=== PATIENT | female | born 1960 | race Caucasian/White ===

== ENCOUNTER → 2017-01-10 | Day surgery (SDC) | payer BC ==
[2017-01-04 09:20] VITALS: BMI 23.0
--- NOTE | 2017-01-04 09:47 | PAT Medication Instructions ---
Service Date Jan 04, 2017. Current Home Medication List Carboxymethylcellulose Sodium (Refresh Tears), 1 DROP OPB PN Ferrous Sulfate (Slow Fe), 1 TAB PO 3XWEEK Ibuprofen (Motrin), 600 MG PO TID Lisinopril (Zestril), 5 MG PO QAM Loteprednol Etabonate (Lotemax), 1 DROPS OP TID PRN for RN Multivitamins/Minerals (Mvi With Minerals), 1 TAB PO QAM Triamcinolone Acet (Triamcinolone Acetonide), 1 APPLN TOP PRN Valacyclovir (Valtrex), 500 MG PO DIRECTED Medication Instructions For Your Scheduled Surgery - Hold the following medications PER SURGEONS INSTRUCTIONS: Ibuprofen (Motrin), 600 MG PO TID - Hold the following medications 24 hours prior to surgery: Triamcinolone Acet (Triamcinolone Acetonide), 1 APPLN TOP PRN - Hold the following medications the morning of surgery: Lisinopril (Zestril), 5 MG PO QAM Multivitamins/Minerals (Mvi With Minerals), 1 TAB PO QAM - Take the following medications the morning of surgery with a sip of water OTHERWISE NOTHING TO EAT OR DRINK AFTER MIDNIGHT: Carboxymethylcellulose Sodium (Refresh Tears), 1 DROP OPB Loteprednol Etabonate (Lotemax), 1 DROPS OP TID PRN Valacyclovir (Valtrex), 500 MG PO DIRECTED Tylenol (may take if needed up to 4 hours prior to surgery) - Take the following medications as scheduled the night before surgery: Carboxymethylcellulose Sodium (Refresh Tears), 1 DROP OPB Loteprednol Etabonate (Lotemax), 1 DROPS OP TID PRN Tylenol If you have any questions please call us at [phone] or [phone] or [phone]
--- NOTE | 2017-01-04 10:26 | DIAGNOSTIC IMAGING REPORT ---
TWO VIEW CHEST CLINICAL HISTORY: Preoperative examination. FINDINGS: PA and lateral chest radiographs are compared to study dated 07/17/2012. The cardiomediastinal silhouette is unremarkable. The lungs and pleural spaces are clear. There is no pneumothorax. The bony thorax appears intact. IMPRESSION: No active disease in the chest. Electronically signed by: Dewayne Marsh M.D. 01/04/2017 10:25 AM Dictated Date/Time: 01/04/2017 10:25 AM
[2017-01-04 11:13] LABS: BASO % 0.5 %; BASO ABS # 0.03 K/uL (0-0.2); COMPLETE YES; EOS % 2.4 %; IG% 0.2 %; LYMPH % 27.3 %; LYMPH ABS # 1.81 K/uL (1.2-3.4); MEAN CELL VOLUME 85.1 fL (80-100); MEAN CORPUSCULAR HEMOGLOBIN 28.6 pg (25-34); MEAN CORPUSCULAR HGB CONC 33.6 g/dl (32-36); MEAN PLATELET VOLUME 9.5 fL (7.4-10.4); MONO % 6.9 %; NEUT % 62.7 %; PLATELET COUNT 244 K/uL (130-400); RED BLOOD COUNT 4.23 M/uL (4.2-5.4); WHITE BLOOD COUNT 6.63 K/uL (4.8-10.8)
[2017-01-04 11:18] LABS: URINE APPEARANCE CLEAR (CLEAR); URINE BILIRUBIN NEG (NEG); URINE COLOR YELLOW; URINE EPITHELIAL CELL AUTO >30 /lpf (0-5); URINE NITRITE NEG (NEG); URINE SPECIFIC GRAVITY 1.019 (1.000-1.030); UROBILINOGEN NEG (NEG)
[2017-01-04 11:34] LABS: MANUAL MICROSCOPIC REQUIRED? NO; REVIEW REQ? YES
[~2017-01-10] VITALS: Ht 170.2 cm; Wt 65.4 kg
[~2017-01-10] MED LIST: ACET-1256 PO; ATROPINE SULFATE 0.1 MG/ML 5ML SYR IV PRN; CARB0.5D28 OPB; CIPR-255 PO; CIPROFLOXACIN / D5W 400 MG IV SCH; DEXAMETHASONE SOD INJ 4 MG/ML VIAL ONE; EpHEDrine SULFATE INJ 50 MG/ML AMP IV PRN; FENTANYL CITRATE INJ 50 MCG/1 ML 2 ML VIAL ONE; FERR142T PO; HYDROmorphone INJ 1 MG/ML SYR IV PRN; IBUP600T44 PO; LACTATED RINGER'S 1000ML 1,000 ML IV SCH; LIDOCAINE HCL 2% 2 ML VIAL (20MG/ML) ONE; LISI-729 PO; LTMOPS OP; MIDAZOLAM HCL 1 MG/ML 2ML VIAL ONE; MULT-513 PO; ONDANSETRON INJ 2 MG/ML 2 ML VIAL IV PRN; ONDANSETRON INJ 2 MG/ML 2 ML VIAL ONE; OXYC7.5T65 PO; OXYCODONE/ACETAMINOPHEN 7.5-325 TAB PO PRN; PHEN-775 PO; PROPOFOL IV EMULSION 10 MG/ML 20 ML VIAL IV ONE; TRMO115 TOP; VALA500T60 PO
[2017-01-10 07:47] VITALS: BP 127/70; PULSE 74; TEMP 37.3; O2SAT 97; Ht 170.2 cm; Wt 65.4 kg
--- NOTE | 2017-01-10 09:21 | History & Physical Bridge Note ---
H&P Re-Evaluation Bridge Note: I have examined the patient, reviewed the History & Physical and in the interval since the performance of the History & Physical I have noted the following changes of clinical significance: No changes noted
--- NOTE | 2017-01-10 10:40 | [facility] Operative Report ---
Operative Report Operative Date Jan 10, 2017. Pre-Operative Diagnosis Bladder Tumor Post-Operative Diagnosis Bladder Tumor Procedure(s) Performed Transuretheral Resection Bladder Tumor, Large Surgeon Dr. Pompa Cocoa Bean Roaster Surgeon(s) none Estimated Blood Loss 10cc Findings Multiple papillary appearing tumors throughout base and right lateral wall. Largest approx 3 cm in the base on right side. Total volume approx 6.3 cm. Fluids See Anes Report Specimens A: Tumor right trinome Drains None Anesthesia General Complication(s) None Disposition Recovery Room / PACU Indications Multifocal bladder tumors. risks and benefits discussed at length Description of Procedure Patient was consented and brought back to the operating room. Patient was placed under anesthesia in the supine position. Patient was prepped and draped in the regular sterile fashion. A time out was completed. A 30degree Cystoscope was placed into the bladder and the entire bladder was examined. The UO's were identified. Multifocal papillary tumors were discovered with many below 1 cm in size. Largest found at base of bladder on right approx 3 cm. Mild areas of bullous edema surrounding base tumor. The tumor was resected with the bipolar loop and the resection scope. It was sent for pathologic analysis. The multiple small tumors on the wall and base were also resected and the base fulgurated. With all visible tumor resected, the area was inspected. No bleeding was appreciated. Total tumor volume estimated at 6.3cm. The bladder was emptied. The scope was removed. The patient was cleaned, aroused from anesthesia, and transferred to the pacu in stable condition having tolerated the procedure well with no complications. I was present and participated in all aspects of the procedure. The patient will be monitored in the PACU until transferred. I attest to the content of the Intraoperative Record and any orders documented therein. Any exceptions are noted below.
--- NOTE | 2017-01-10 10:42 | Discharge Instructions ---
Discharge Instructions Date of Service Jan 10, 2017. Admission Reason for Admission: Bladder Tumor Discharge Discharge Diagnosis / Problem: Bladder tumor Discharge Goals Goal(s): Decrease discomfort, Improve function Activity Recommendations Activity Limitations: resume your previous activity Lifting Limitations: no more than 25 pounds, gradually increase as tolerated Exercise/Sports Limitations: as tolerated, gradually increase as tolerated Shower/Bathe: no limitations . Instructions / Follow-Up Instructions / Follow-Up May have blood in urine or pelvic discomfort. Call if any fevers or if unable to void. Current Hospital Diet Patient's current hospital diet: Reg Discharge Diet Recommended Diet: Regular Diet Procedures Procedures Performed: Transuretheral Resection Bladder Tumor, Large Pending Studies Studies pending at discharge: no Medical Emergencies . Who to Call and When: Medical Emergencies: If at any time you feel your situation is an emergency, please call 911 immediately. . Non-Emergent Contact Non-Emergency issues call your: Primary Care Provider, Urologist Call Non-Emergent contact if: temperature is above 101, temperature is above 101.5, your pain is not controlled, your pain is worsening . . "Provider Documentation" section prepared by Cade Pompa,. . VTE Core Measure Inpt VTE Proph given/why not?: Carlene Grider, SCD's
[2017-01-10] MEDS: FENTANYL CITRATE INJ 50 MCG/1 ML 2 ML VIAL IV PRN ×2 (11:12→11:16)
--- NOTE | 2017-01-10 11:34 | Anesthesiology Progress Note ---
Anesthesia Post Op Note Date & Time Jan 10, 2017 at 11:34 Vital Signs Pain Intensity: 3 Vital Signs Past 12 Hours Date Time Temp Pulse Resp B/P (MAP) Pulse Ox O2 Delivery O2 Flow Rate FiO2 01/10/17 11:30 82 22 132/78 98 Room Air 01/10/17 11:20 75 12 126/73 97 Room Air 01/10/17 11:10 86 20 132/103 98 Room Air 01/10/17 11:00 83 13 145/71 100 Oxymask 10 01/10/17 10:50 81 13 146/82 100 Oxymask 10 01/10/17 10:43 36.1 71 20 130/82 100 Oxymask 10 01/10/17 07:47 37.3 74 20 127/70 (89) 97 Room Air Notes Mental Status: alert / awake / arousable, participated in evaluation Pt Amnestic to Procedure: Yes Nausea / Vomiting: adequately controlled Pain: adequately controlled Airway Patency, RR, SpO2: stable & adequate BP & HR: stable & adequate Hydration State: stable & adequate Anesthetic Complications: no major complications apparent
[2017-01-10 11:40] VITALS: BP 136/73; PULSE 78; TEMP 36.3; O2SAT 98
[2017-01-10 12:10] VITALS: BP 127/74; PULSE 83; TEMP 36.3; O2SAT 98
[2017-01-10 12:40] VITALS: BP 131/88; PULSE 72; TEMP 36.7; O2SAT 100
== END | disposition home or self-care (01) ==
LOC: C.ACU 07:07
PROVIDERS: ATTEND Urology
DX: C67.2 Malignant neoplasm of lateral wall of bladder (principal); C67.9 Malignant neoplasm of bladder, unspecified; Z79.899 Other long term (current) drug therapy

== ENCOUNTER → 2017-03-26 | Outpatient (CLI) | payer OTHER ==
[~2017-03-26] MED LIST changes: -ACET-1256 PO; -ATROPINE SULFATE 0.1 MG/ML 5ML SYR IV PRN; -CIPROFLOXACIN / D5W 400 MG IV SCH; -DEXAMETHASONE SOD INJ 4 MG/ML VIAL ONE; -EpHEDrine SULFATE INJ 50 MG/ML AMP IV PRN; -FENTANYL CITRATE INJ 50 MCG/1 ML 2 ML VIAL ONE; +GADOXETATE DISODIUM (NON-WT BASED PROCEDURE) IV PRN; -HYDROmorphone INJ 1 MG/ML SYR IV PRN; -IBUP600T44 PO; -LACTATED RINGER'S 1000ML 1,000 ML IV SCH; -LIDOCAINE HCL 2% 2 ML VIAL (20MG/ML) ONE; -MIDAZOLAM HCL 1 MG/ML 2ML VIAL ONE; -ONDANSETRON INJ 2 MG/ML 2 ML VIAL IV PRN; -ONDANSETRON INJ 2 MG/ML 2 ML VIAL ONE; -OXYCODONE/ACETAMINOPHEN 7.5-325 TAB PO PRN; -PHEN-775 PO; -PROPOFOL IV EMULSION 10 MG/ML 20 ML VIAL IV ONE
--- NOTE | 2017-03-26 16:25 | DIAGNOSTIC IMAGING REPORT ---
MRI LIVER COMBO CLINICAL HISTORY: LIVER MASS , RENAL MASS., Bladder carcinoma. TECHNIQUE: Imaging was performed prior to and following IV contrast injection. The patient was injected with 10 cc of intravenous Eovist COMPARISON STUDY: CT scan dated February 2009 FINDINGS: There is cholelithiasis. There is no ductal dilatation. No pancreatic masses are visualized. No splenic masses are visualized. There is no evidence of abdominal aortic dilatation. There is no evidence of pathologic adenopathy. There is a 14 mm right renal cyst. There is an 11 mm T2 bright mass within the right hepatic lobe immediately beneath the dome the diaphragm. This demonstrates peripheral nodular enhancement with slow filling. This likely represents a hepatic hemangioma. There is a second 4 mm T2 bright lesion within the right hepatic lobe. This is too small to actually characterize but likely represents a second hepatic hemangioma. Both of these lesions were visualized the prior February 2009 CT scan. No adrenal masses are visualized. IMPRESSION: 1. 14 mm right renal cyst. No solid renal masses are visualized 2. There are 2 hepatic masses. These were both present in 2009. These likely represent benign hepatic hemangiomas. 3. Cholelithiasis Electronically signed by: Tad Vila M.D. 03/26/2017 4:23 PM Dictated Date/Time: 03/26/2017 4:12 PM
== END | disposition home or self-care (01) ==
LOC: C.MRI 14:31
PROVIDERS: ATTEND Internal Medicine Gastroenterology
DX: R16.0 Hepatomegaly, not elsewhere classified (principal); N28.1 Cyst of kidney, acquired; K80.20 Calculus of gallbladder without cholecystitis without obstruction

== ENCOUNTER 2023-08-17 03:23 | Inpatient (IN) ==
--- OUTSIDE RECORDS SUMMARY | 2023-08-17 03:42 | External Medical Summary | Summary of Care ---
Author Name Unknown Organization [facility] Address [address] [facility] [place] [address] Phone [phone] Care Team Providers Care Sewer Connector Name Role Phone Danny Crystal MD Primary Care Provider + Encounter Details Date Type Department Care Team (Late st Contact Info) Description 08/15/2023 Patient Reported Data Patient Survey Ortho OBERD Allergies Active Allergy Reactions Criticality Noted Date Comments Pollen 11/29/2014 documented as of this encounter (statuses as of 08/15/2023) Medications Medication Sig Dispensed Refills Start Date End Date Status DAILY VITAMINS PO TABS daily 0 0 03/02/2005 Active REFRESH OPTIVE 0.5-0.9 % OP SOLN daily as needed Ac tive Slow Fe 142 (45 Fe) MG Oral Tablet Extended Release 3 days a week M,W,F Active Terbinafine HCl 1 % External Cream Apply topically to affected area 2 times a day. Apply to affected area as directed. Active Ketotifen Fumarate 0.025 % Ophthalmic Solution 1 Drop in the morning and 1 Drop before bedtime. Uses Equate brand eye drops as needed . Active diphenhydrAMINE HCl 25 MG Oral Capsule Take 1 Capsule by mouth every 6 hours as needed for Itching. Active Loteprednol Etabonate 0.5 % Ophthalmic Suspension (Lotemax) NEEDED 10/05/2020 Acti ve Fluticasone Propionate 50 MCG/ACT Nasal SuspensionIndication s:as needed Administer 2 Sprays into each nostril as needed for Rhinitis. 18.2 mL 08/09/2021 Active Triamcinolone Acetonide 0.1 % External Ointment (Aristocort)Indicati ons:Dermatitis Apply topically to affected area as needed (facial inflammation). Apply to affected Area twice a day as needed 15 g 2 01/10/2023 Active valACYclovir HCl 500 MG Oral Tablet (Valtrex)Indications :Herpes simplex virus infection take 1 tablet by mouth three times a day for 5 days if needed 30 Tablet 5 05/02/2023 Active Ibuprofen 600 MG Oral Tablet (Motrin)Indications: Systemic lupus erythematosus (HCC) TAKE ONE TABLET BY MOUTH THREE TIMES A DAY NEEDED FOR PAIN 270 Tablet 1 05/11/2023 05/10/2024 Active Lisinopril 20 MG Oral Tablet (Prinivil)Indication s:HTN, goal below 140/90 Take 1 Tablet by mouth in the morning. 90 Tablet 3 05/17/2023 Active documented as of this encounter (statuses as of 08/15/2023) Active Problems Problem Noted Date Diagnosed Date 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 Senile osteoporosis 04/19/2022 Mild mitral regurgitation 12/18/2020 Diastolic dysfunction 12/18/2020 Melanoma in situ of upper extremity, left 2020 Lupus 11/11/2019 History of gallstones 11/11/2019 Overview: No symptoms Basal cell carcinoma (BCC) of left ala nasi 02/2017 Renal cyst, right 04/01/2017 History of esophageal stricture 09/06/2016 History of melanoma in situ 12/11/2012 Overview: left forearm 08/2009 HTN, goal below 140/90 10/09/2012 History of malignant melanoma 12/13/2009 Dermatofibroma 11/29/2000 documented as of this encounter (statuses as of 08/15/2023) Resolved Problems Problem Noted Date Diagnosed Date Resolved Date High risk for fracture due t o osteoporosis by DEXA scan 04/18/2022 04/18/2022 Malignant neoplasm of trigon e of urinary bladder 11/14/2020 08/13/2022 Systolic murmur 09/15/2018 08/13/2022 Visit for wound check 05/21/20182018 Postop check 02/19/2018 09/15/2018 Liver hemangioma 04/01/2017 08/13/2022 Calculus of gallbladder with out cholecystitis without obstruction 04/01/2017 09/15/2018 Malignant neoplasm of latera l wall of urinary bladder 04/01/2017 11/14/2020 Dysphagia 01/06/2014 09/12/2017 Overview: ICD-10 update of inactive term Conjunctivitis 09/09/2012 09/15/2018 HTN (hypertension) 07/31/2012 3 Acute bronchitis, complicated 05/05/2010 12/19/2016 ADVANCE DIRECTIVE INFORMATION 01/29/2006 04/01/2017 Overview: No, Advance Directive brochure offered , patient declined. SYST LUPUS ERYTHEMATOSIS suspect 03/04/2005 08/31/2009 Edema 08/03/2004 09/15/2018 Calculus of gallbladder 12/28/2001 0206/2017 Sebaceous cyst 11/29/2000 08/15/2023 AT RISK FOR OSTEOPOROSIS 09/14/200006/2017 SYST LUPUS ERYTHEMATOSIS Herpes simplex virus infection 09/15/2018 Encounter for long-term (cur rent) use of medications 04/01/2017 Overview: ICD-10 update of inactive term documented as of this encounter (statuses as of 08/15/2023) Immunizations Name Administration Dates Next Due COVID-19 mRNA, LNP-s, No Pre serve, 2-Dose Series (Moderna) 06/06/2021,04/22/2020,03/25/2020 COVID-19, mRNA, LNP-s, PF, B ooster, 100mcg/0.5mg (Moderna) 11/19/2021,06/05/2021,12/26/2020 Covid-19, Mrna, Lnp-s, Pf, B ivalent, 50 Mcg, IM, 12 yrs and above (Moderna) 12/18/2022,08/13/2022 PPD 07/17/2010,06/03/2007 Seasonal Influenza Virus Vac cine, Unspecified Formulation 11/09/2022,11/11/2019 Seasonal Influenza, PF, 6 M & above, IM , (FluLaval or Fluzone) 11/09/2022,11/02/2021,11/14/2020,11/10,11/03/2018,12/17/2017,12/18/2016 Seasonal Influenza, Quadriva lent, No Preserve, IM 12/13/2015,11/29/2014 Seasonal Influenza, Split, I IV3, With Preserve, Inj 11/19/2013,12/01/2012,11/10/2011,12/28,12/13/2009,11/17/2008,12/12/2007 ,01/13/2007,01/08/2006 TD - Tetanus/Diptheria (ADULT) 05/16/2004 TDAP (age 10 and older)(Boostrix) 08/13/2022,07/2012 Zoster Vaccine Recombinant (Shingrix) 12/16/2018,09/15/2018 11/16/2018 documented as of this encounter Social History Tobacco Use Types Packs/Day Years Used Date Smoking Tobacco: Never Smokeless Tobacco: Never Alcohol Use Standard Drinks/Week Comments No 0 (1 standard drink = 0.6 oz pur e alcohol) PHQ-2 Answer Date Recorded PHQ Adult Total Score 2 08/13/2022 Hunger Vital Sign Answer Date Recorded Within the past 12 months, y ou worried that your food would run out before you got the money to buy more. Never true 08/14/19 23 Within the past 12 months, t he food you bought just didn't last and you didn't have money to get more. Never true 08/13/2022 Utilities Answer Date Recorded Do you have trouble paying y our heating, water, or electric bill? (Adult - for ages 18 years and over) Not on file 08/13/2023 Is your family able to pay t he heat, water, or electric bill? (Household - for ages 0-17 years) Not on file 08/13/2023 Does your family have access to good internet? (Household - for ages 0-17 years) Not on file 08/13/2023 Social Connections Answer Date Recorded How often do you feel lonely or isolated from those around you? (Adult - for ages 18 years and over) Not on file 08/13/2023 Sex and Gender Information Value Date Recorded Sex Assigned at Female 09/15/2018 8:04 AM EDT Gender Identity Female 09/15/2018 8:04 AM EDT Sexual Orientation Straight 09/15/2018 8: 04 AM EDT Job Start Date Occupation Industry Not on file Not on file Not on file documented as of this encounter Plan of Treatment Upcoming Encounters Date Type Department Care Team (Late st Contact Info) Description 08/16/2023 12:45 PM EDT Imaging Radiology [facility] [address] [facility] [place] [address] 08/21/2023 11:30 AM EDT Office Visit Orthopaedics [facility] [address] [facility] [address] [facility] [place] [address] Millie Stout MD [address] [facility] [place] [address] 09/09/2023 3:30 PM EDT Procedure Only Urology, [facility] [address] [facility] [place] [address] Pepito Malhotra MD [address] [place] [address] 01/09/2024 1:00 PM EST Office Visit Dermatology [facility] [address] [place] [address] Shilpi Dobbs PA-C [address] [facility] [place] [phone] 04/15/2024 11:00 AM EST Office Visit Rheumatology [place] [phone] [facility] [place] [address] Porter Sanchez MD [facility] [place] [address] 07/14/2024 1:00 PM EDT Office Visit General Internal Medicine [facility] [address] [place] [address] Danny Crystal MD [address] [facility] [place] [address] 07/17/2024 8:30 AM EDT Imaging Radiology [facility] [address] [facility] [place] [address] [place] [address] Scheduled Procedures Name Priority Associated Diagnoses Date/Ti me COLONOSCOPY FLEXIBLE PROXIMA L DIAGNOSTIC Recall History of colon polyps Screen for colon cancer Health Maintenance Due Date Last Done Comments Cologuard 2005 Sigmoidoscopy 2005 Fecal Occult Blood Test 02/17/2015 02/17/2014 COVID-19 Vaccine ( season) 2023 12/18/2022, 08/13/2022, 11/19/2021, Additional history exists Depression Screening 08/14/2023 08/13/2022 DXA Scan 04/17/2024 04/17/2022, 03/29, 01/25/2020, Additional history exists Mammogram 07/15/2024 07/16/2023, 06/25, 07/06/2022, Additional history exists GFR 08/14/2024 08/15/2023, 03/28, 08/13/2022, Additional history exists Albumin/Creatinine Ratio 08/15/2025 08/15/2022 Colonoscopy 05/18/2027 05/17/2022, 04/26, 03/25/2017, Additional history exists Colorectal Cancer Screening 05/18/2027 Lipid Panel 08/14/2027 08/13/2022, 07/26, 11/14/2020, Additional history exists DTaP,Tdap,and Td Vaccines (3 - Td or Tdap) 08/13/2032 08/13/2022, 07/31/2012, 05/16/2004, Additional history exists Zoster Vaccines Completed 12/16/2018, 09/15/2018 RETIRED - COLONOSCOPY-EVERY 5 YRS AGES 18-100 Discontinued 05/17/2022, 05/17/2022, 03/25/2017, Additional history exists Influenza Vaccine (FLU shot) Completed 11/09/2022, 11/09/2022, 11/02/2021, Additional history exists VITAMIN D LEVEL ONCE IN A LIFETIME-USE SMARTSET# [id number] Completed 04/11/2023, 04/18/2022, 01/18/2020, Additional history exists GARDASIL-HPV IMMUNIZATION SERIES Aged Out No longer eligible based on patient's age to complete this topic Hepatitis B Aged Out No longer eligi ble based on patient's age to complete this topic MENINGOCOCCAL (MENACTRA/MENVEO) Aged Out No longer eligible based on patient's age to complete this topic Pneumococcal Vaccine: Pediatrics (0 to 5 Years) and At-Risk Patients (6 to 64 Years) Aged Out No longer eligible based on patient's age to complete this topic documented as of this encounter Medical Devices Not on filedocumented as of this encounter Advance Directives * Full Code (Latest Code Status on File) Date Activated Date Inactivated Comments 07/12/2017 8:19 AM 07/12/2017 3:32 PM This order r eflects the patients wishes and were consensually agreed upon. Care Teams Sewer Connector Relationship Specialty Start Date End Date Danny Crystal MD [address] [facility] [place] [address] PCP - General Internal Medicine 04/01/17 documented as of this encounter
--- OUTSIDE RECORDS SUMMARY | 2023-08-17 03:42 | External Medical Summary | Summary of Care ---
Author Name Unknown Organization [facility] Address [address] [facility] [place] [address] Phone [phone] Care Team Providers Care Painter Touch Up Name Role Phone Danny Crystal MD Primary [...] Description 08/16/2023 12:45 PM EDT Imaging Radiology [facility] [address] [facility] [place] [address] 08/21/2023 11:30 AM EDT Office Visit Orthopaedics [facility] [address] [facility] [place] [address] Millie Stout MD [address] [facility] [place] [address] 09/09/2023 3:30 PM EDT Procedure Only Urology, [facility] [address] [facility] [place] [address] Pepito Malhotra MD [address] [place] [address] 01/09/2024 1:00 PM EST Office Visit Dermatology [facility] [address] [place] [address] Shilpi Dobbs PA-C [address] [facility] [place] [phone] 04/15/2024 11:00 AM EST Office Visit Rheumatology [place] [address] [facility] [place] [address] Porter Sanchez MD [facility] [place] [address] 07/14/2024 1:00 PM EDT Office Visit General Internal Medicine [facility] [address] [place] [address] Danny Crystal MD [address] [facility] [address] 07/17/2024 8:30 AM EDT Imaging Radiology [facility] [address]st [facility] [place] [address] [place] [address] Scheduled Procedures Name Priority Associated Diagnoses Date/Ti [...] D LEVEL ONCE IN A LIFETIME-USE SMARTSET# [id number] Completed 04/11/2023, 04/18/2022, 01/18/2020, Additional history exists [...] and were consensually agreed upon. Care Teams Painter Touch Up Relationship Specialty Start Date End Date Danny Crystal MD [address] [facility] [address] PCP - General Internal Medicine 04/01/17 documented as of this encounter
--- OUTSIDE RECORDS SUMMARY | 2023-08-17 03:42 | External Medical Summary | Summary of Care ---
Author Name Unknown Organization [facility] Address [address] [facility] [place] [address] Phone [phone] Care Team Providers Care Air Deodorizer Servicer Name Role Phone Danny Crystal MD Primary [...] Description 08/16/2023 12:45 PM EDT Imaging Radiology [facility] [address] [facility] [place] [address] 08/21/2023 11:30 AM EDT Office Visit Orthopaedics [facility] [address] [facility] [place] [address] Millie Stout MD [address] [facility] [place] [address] 09/09/2023 3:30 PM EDT Procedure Only Urology, [facility] [address] [facility] [place] [address] Pepito Malhotra MD [address] [place] [address] 01/09/2024 1:00 PM EST Office Visit Dermatology [facility] [address] [place] [address] Shilpi Dobbs PA-C [address] [facility] [place] [phone] 04/15/2024 11:00 AM EST Office Visit Rheumatology [place] [address] [facility] [place] [address] Porter Sanchez MD [facility] [place] [address] 07/14/2024 1:00 PM EDT Office Visit General Internal Medicine [facility] [address] [place] [address] Danny Crystal MD [address] [facility] [place] [address] 07/17/2024 8:30 AM EDT Imaging Radiology [facility] 1st [facility] [place] [address] [place] [address] Scheduled Procedures Name Priority Associated Diagnoses Date/Ti [...] D LEVEL ONCE IN A LIFETIME-USE SMARTSET# [id number] Completed 04/11/2023, 04/18/2022, 01/18/2020, Additional history exists [...] and were consensually agreed upon. Care Teams Air Deodorizer Servicer Relationship Specialty Start Date End Date Danny Crystal MD [address] [facility] [place] [address] PCP - General Internal Medicine 04/01/17 documented as of this encounter
--- OUTSIDE RECORDS SUMMARY | 2023-08-17 03:42 | External Medical Summary | Summary of Care ---
Author Name Unknown Organization [facility] Address [address] [facility] [place] [address] Phone [phone] Care Team Providers Care Cable Engineer Name Role Phone Danny Crystal MD Primary [...] Description 08/16/2023 12:45 PM EDT Imaging Radiology [facility] [address] [facility] [place] [address] 08/21/2023 11:30 AM EDT Office Visit Orthopaedics [facility] [address] [facility] [place] [address] Millie Stout MD [address] [facility] [place] [address] 09/09/2023 3:30 PM EDT Procedure Only Urology, [facility] 132 [facility] [place] [address] Pepito Malhotra MD [address] [address] [place] [address] 01/09/2024 1:00 PM EST Office Visit Dermatology [facility] [address] [place] [address] Shilpi Dobbs PA-C 200 [facility] [place] [address] 04/15/2024 11:00 AM EST Office Visit Rheumatology [place] 8[address]40 [facility] [place] [address] Porter Sanchez MD [facility] [place] [address] 07/14/2024 1:00 PM EDT Office Visit General Internal Medicine [facility] [address] [place] [address] Danny Crystal MD 200 [facility] [place] [address] 07/17/2024 8:30 AM EDT Imaging Radiology [facility] 1st [facility] [place] [address] [place] [address] Scheduled Procedures Name Priority Associated Diagnoses Date/Ti [...] D LEVEL ONCE IN A LIFETIME-USE SMARTSET# [id number] Completed 04/11/2023, 04/18/2022, 01/18/2020, Additional history exists [...] and were consensually agreed upon. Care Teams Cable Engineer Relationship Specialty Start Date End Date Danny Crystal MD 200 [facility] [address] PCP - General Internal Medicine 04/01/17 documented as of this encounter
--- OUTSIDE RECORDS SUMMARY | 2023-08-17 03:43 | External Medical Summary ---
Author Name Unknown Address Unknown Organization [id number][place] [place] [address] [place] [address] Laboratory Report Ordering Provider Test Date Status XANDER MCCORMICK 08/15/2023 09:28:35 Final Observation Date Value Abnormality Reference (Units ) Status Iron 08/15/2023 09:28:35 32 Below low normal 33-151 (ug/dL) Final Iron-binding capacity 08/15/2023 09:28:35 290 250-425 (ug/dL) Final Transferrin Sat % 08/15/2023 09:28:35 11 Below low normal 15-55 (%) Final Performing Location [facility] [place] [address] [place] [address]
--- OUTSIDE RECORDS SUMMARY | 2023-08-17 03:43 | External Medical Summary | Summary of Care ---
Author Name Unknown Organization [facility] Address [address] [facility] [place] [address] Phone [phone] Care Team Providers Care Varnish Thinner Name Role Phone Danny Crystal MD Primary [...] Description 08/16/2023 12:45 PM EDT Imaging Radiology [facility] 132 [facility] [place] [address] 08/21/2023 11:30 AM EDT Office Visit Orthopaedics [facility] 132 [facility] [place] [address] Millie Stout MD 132 [facility] [place] [address] 09/09/2023 3:30 PM EDT Procedure Only Urology, [facility] 132 [facility] [place] [address] Pepito Malhotra MD [address] [place] [address] [place] [address] 01/09/2024 1:00 PM EST Office Visit Dermatology [facility] [address] [place] [address] Shilpi Dobbs PA-C 200 [facility] [place] [phone] 04/15/2024 11:00 AM EST Office Visit Rheumatology [place] [address]1130 [facility] [place] [address] Porter Sanchez MD [facility] [place] [address] 07/14/2024 1:00 PM EDT Office Visit General Internal Medicine [facility] [address] [place] [address] Danny Crystal MD 200 [place] [address] 07/17/2024 8:30 AM EDT Imaging Radiology [facility] 1st [facility] [place] [address] [place] [address] Scheduled Procedures Name Priority Associated Diagnoses Date/Ti [...] D LEVEL ONCE IN A LIFETIME-USE SMARTSET# [id number] Completed 04/11/2023, 04/18/2022, 01/18/2020, Additional history exists [...] and were consensually agreed upon. Care Teams Varnish Thinner Relationship Specialty Start Date End Date Danny Crystal MD 200 [place] [address] PCP - General Internal Medicine 04/01/17 documented as of this encounter
--- OUTSIDE RECORDS SUMMARY | 2023-08-17 03:43 | External Medical Summary | Summary of Care ---
Author Name Unknown Organization [facility] Address [address] [facility] [place] [address] Phone [phone] Care Team Providers Care Compensation Consulting Manager Name Role Phone Danny Terrell MD Primary Care Provider + Reason for Visit * Reason Comments Medication Refill Encounter Details Date Type Department Care Team (Late st Contact Info) Description 05/11/2023 Refill General Internal Medicine [facility] [place] [address] [place] [address] Irasema Diego MD 200 [facility] [place] [address] SYST LUPUS ERYTHEMATOSIS Allergies Active Allergy Reactions Criticality Noted Date Comments Pollen 11/29/2014 documented as of this encounter (statuses as of 05/11/2023) Medications Medication Sig Dispensed Refills Start Date End Date Status DAILY VITAMINS PO TABS daily 0 0 03/02/2005 Active REFRESH OPTIVE 0.5-0.9 % OP SOLN daily as needed 0 Ac tive Slow Fe 142 (45 Fe) MG Oral Tablet Extended Release 3 days a week M,W,F 0 Active Terbinafine HCl 1 % External Cream Apply topically to affected area 2 times a day. Apply to affected area as directed. 0 Active Ketotifen Fumarate 0.025 % Ophthalmic Solution 1 Drop in the morning and 1 Drop before bedtime. Uses Equate brand eye drops as needed . 0 Active diphenhydrAMINE HCl 25 MG Oral Capsule Take 1 Capsule by mouth every 6 hours as needed for Itching. 0 Active Loteprednol Etabonate 0.5 % Ophthalmic Suspension (Lotemax) NEEDED 0 10/05/2020 Active Fluticasone Propionate 50 MCG/ACT Nasal SuspensionIndicatio ns:as needed Administer 2 Sprays into each nostril as needed for Rhinitis. 18.2 mL 0 08/09/2021 Active Triamcinolone Acetonide 0.1 % External Ointment (Aristocort)Indicat ions:Dermatitis Apply topically to affected area as needed (facial inflammation). Apply to affected Area twice a day as needed 15 g 2 01/10/2023 Active Lisinopril 20 MG Oral Tablet (Prinivil)Indicatio ns:HTN, goal below 140/90 TAKE ONE TABLET BY MOUTH EVERY MORNING 90 Tablet 1 02/11/2023 Active methylPREDNISolone 4 MG Oral Tablet Therapy Pack (Medrol Dosepack) follow package directions 21 Tablet 1 04/11/2023 Active valACYclovir HCl 500 MG Oral Tablet (Valtrex)Indication s:Herpes simplex virus infection take 1 tablet by mouth three times a day for 5 days if needed 30 Tablet 5 05/02/2023 Active Ibuprofen 600 MG Oral Tablet (Motrin)Indications :Systemic lupus erythematosus (HCC) TAKE ONE TABLET BY MOUTH THREE TIMES A DAY NEEDED FOR PAIN 270 Tablet 1 05/11/2023 5 Active Ibuprofen 600 MG Oral Tablet (Motrin)Indications :Systemic lupus erythematosus (HCC) TAKE ONE TABLET BY MOUTH THREE TIMES A DAY NEEDED FOR PAIN 270 Tablet 1 10/01/2022 4 Discontinue d(Refill) documented as of this encounter (statuses as of 05/11/2023) Active Problems Problem Noted Date Diagnosed Date 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 Senile osteoporosis 04/19/2022 Mild mitral regurgitation 12/18/2020 Diastolic dysfunction 12/18/2020 Melanoma in situ of upper extremity, left 2020 Lupus 11/11/2019 History of gallstones 11/11/2019 Overview: No symptoms Basal cell carcinoma (BCC) of left ala nasi 11/0 02/2017 Renal cyst, right 04/01/2017 History of esophageal stricture 09/06/2016 History of melanoma in situ 12/11/2012 Overview: left forearm 08/2009 HTN, goal below 140/90 10/09/2012 History of malignant melanoma 12/13/2009 Sebaceous cyst 11/29/2000 Dermatofibroma 11/29/2000 documented as of this encounter (statuses as of 05/11/2023) Resolved Problems Problem Noted Date Diagnosed Date [...] Edema 08/03/2004 09/15/2018 Calculus of gallbladder 12/28/2001 02/06/2017 AT RISK FOR OSTEOPOROSIS 09/14/200006/2017 SYST LUPUS ERYTHEMATOSIS Herpes simplex virus infection 09/15/2018 Encounter for long-term (cur rent) use of medications 04/01/2017 Overview: ICD-10 update of inactive term documented as of this encounter (statuses as of 05/11/2023) Immunizations Name Administration Dates Next Due COVID-19 [...] money to get more. Never true 08/13/2022 Sex and Gender Information Value Date Recorded Sex Assigned at Female 09/15/2018 8:04 AM EDT Gender Identity Female 09/15/2018 8:04 AM EDT Sexual Orientation Straight 09/15/2018 8: 04 AM EDT Job Start Date Occupation Industry Not on file Not on file Not on file documented as of this encounter Miscellaneous Notes * Telephone Encounter - Steve Odell [facility] - 05/11/2023 12:59 PM EDTSigned Prescriptions: Disp Refills Ibuprofen 600 MG Oral Tablet (Motrin) 270 Ta*1 Sig: TAKE ONE TABLET BY MOUTH THREE TIMES A DAY NEEDED FOR PAINAuthorizing Provider: DANNY TERRELLUser: STEVE ODELL documented in this encounter Plan of Treatment Upcoming Encounters Date Type Department Care Team (Late st Contact Info) Description 06/20/2023 9:30 AM EDT Office Visit Dermatology [facility] [address] [place] [address] Giuliana Bedolla MD [address] [place] [address] 07/08/2023 9:45 AM EDT Imaging Radiology [facility] [address]st [address] [place] [address] 08/15/2023 9:00 AM EDT Office Visit General Internal Medicine [facility] [address] [place] [address] Danny Terrell MD 200 [facility] [place] [address] 09/09/2023 3:30 PM EDT Procedure Only Urology, [facility] 132 [facility] [place] [address] Pepito Malhotra MD [address] [address] [place] [address] 04/15/2024 11:00 AM EST Office Visit Rheumatology [place] [address] [address] Porter Sanchez MD [address] [place] [address] Scheduled Procedures Name Priority Associated Diagnoses Date/Ti me COLONOSCOPY FLEXIBLE PROXIMA L DIAGNOSTIC Recall History of colon polyps Screen for colon cancer Health Maintenance Due Date Last Done Comments COVID-19 Vaccine (2022- season) 2023 12/18/2022, 08/13/2022, 11/19/2021, Additional history exists Mammogram 07/07/2023 07/06/2022, 06/25, 11/28/2020, Additional history exists Depression Screening 08/14/2023 08/13/2022 GFR 04/11/2024 04/11/2023, 07/26, 04/18/2022, Additional history exists DXA Scan 04/17/2024 04/17/2022, 03/29, 01/25/2020, Additional history exists Albumin/Creatinine Ratio 08/15/2025 08/15/2022 COLONOSCOPY-EVERY 5 YRS AGES 18-100 05/18/2027 05/17/2022, 05/17/2022, 03/25/2017, Additional history exists Lipid Panel 08/14/2027 08/13/2022, 07/26, 11/14/2020, Additional history exists DTaP,Tdap,and Td Vaccines (3 - Td or Tdap) 08/13/2032 08/13/2022, 07/31/2012, 05/16/2004, Additional history exists Zoster Vaccines Completed 12/16/2018, 09/15/2018 Influenza Vaccine (FLU shot) Completed , 11/09/2022, 11/02/2021, Additional history exists VITAMIN D LEVEL ONCE IN A LIFETIME-USE SMARTSET# [id number] Completed 04/11/2023, 04/18/2022, 01/18/2020, Additional history exists [...] Not on filedocumented as of this encounter Visit Diagnoses Diagnosis SYST LUPUS ERYTHEMATOSIS Systemic lupus erythematosus documented in this encounter Advance Directives Latest Code Status on File Code Status Date Activated Date Inactivated Comments Full Code 07/12/2017 8:19 AM 07/12/2017 3:32 PM This order reflects the patients wishes and were consensually agreed upon. Care Teams Compensation Consulting Manager Relationship Specialty Start Date End Date Danny Terrell MD 200 [place] [address] PCP - General Internal Medicine 04/01/17 documented as of this encounter
--- OUTSIDE RECORDS SUMMARY | 2023-08-17 03:43 | External Medical Summary ---
Author Name Unknown Address Unknown Organization K09:[facility] [place] [address] Laboratory Report Ordering Provider Test Date Status XANDER MCCORMICK 08/15/2023 09:28:35 Final Observation Date Value Abnormality Reference (Units ) Status WBC, Total 08/15/2023 09:28:35 10.50 4.00-10.8 0 (K/uL) Final RBC 08/15/2023 09:28:35 4.15 3.85-5.15 (M/uL) Final Hemoglobin 08/15/2023 09:28:35 12.1 12.0-15.3 (g/dL) Final HCT 08/15/2023 09:28:35 35.9 Below low normal 36. 0-45.2 (%) Final MCV 08/15/2023 09:28:35 86.5 81.5-97.5 (fL) Final MCH 08/15/2023 09:28:35 29.2 27.0-34.0 (pg) Final MCHC 08/15/2023 09:28:35 33.7 32.0-36.0 (g/dL) Final RDW 08/15/2023 09:28:35 13.1 11.5-15.5 (%) Final Platelets 08/15/2023 09:28:35 256 140-400 (K /uL) Final MPV 08/15/2023 09:28:35 9.0 6.6-11.1 ( fL) Final Performing Location [facility] [place] [address]
--- OUTSIDE RECORDS SUMMARY | 2023-08-17 03:43 | External Medical Summary | Summary of Care ---
Author Name Unknown Organization [facility] Address [address] [facility] [place] [address] Phone [phone] Care Team Providers Care International Trade Compliance Manager Name Role Phone Danny Crystal MD Primary Care Provider + Reason for Visit * Reason Comments Lesion Pt presents today fo r a spot on R foot. Pt noticed this the day before yesterday (05/21/23) Pt denies any pain or itchiness at this spot at this time Encounter Details Date Type Department Care Team (Late st Contact Info) Description 05/23/2023 8:45 AM EDT Office Visit Dermatology [facility] [place] 200 [facility] [place] [address] Giuliana Bedolla MD 200 [facility] [place] [address] Skin lesion* Allergies Active Allergy Reactions Criticality Noted Date Comments Pollen 11/29/2014 documented as of this encounter (statuses as of 05/26/2023) Medications Medication Sig Dispensed Refills Start Date [...] % Ophthalmic Suspension (Lotemax) NEEDED 0 10/05/2020 Acti ve Fluticasone Propionate 50 MCG/ACT Nasal SuspensionIndication s:as needed Administer 2 Sprays into each nostril as needed for Rhinitis. 18.2 mL 0 08/09/2021 Active Triamcinolone Acetonide 0.1 % External Ointment (Aristocort)Indicati ons:Dermatitis Apply topically to affected area as needed (facial inflammation). Apply to affected Area twice a day as needed 15 g 2 01/10/2023 Active methylPREDNISolone 4 MG Oral Tablet Therapy [...] as of this encounter (statuses as of 05/26/2023) Active Problems Problem Noted Date Diagnosed Date [...] as of this encounter (statuses as of 05/26/2023) Resolved Problems Problem Noted Date Diagnosed Date [...] 08/31/2009 Edema 08/03/2004 09/15/2018 Calculus of gallbladder 12/28/200106/2017 AT RISK FOR OSTEOPOROSIS 09/14/200006/2017 SYST LUPUS ERYTHEMATOSIS Herpes simplex virus infection 09/15/2018 Encounter for long-term (cur rent) use of medications 04/01/2017 Overview: ICD-10 update of inactive term documented as of this encounter (statuses as of 05/26/2023) Immunizations Name Administration Dates Next Due COVID-19 [...] on file documented as of this encounter Progress Notes * Giuliana Bedolla MD - 05/23/2023 8:56 AM EDT SUBJECTIVE: History of Present Illness: Deangelo Burgos is a 62 year old female seen today for evaluation of a mole that she recently noticed on her right dorsal foot. She is worried about its appearance and requests a biopsy. MEDICA TIONS: Current Outpatient Medications Medication Sig Dispense Refill DAILY VITAMINS PO TABS daily 0 0 REFRESH OPTIVE 0.5-0.9 % OP SOLN daily as needed Slow Fe 142 (45 Fe) MG Oral Tablet Extended Release 3 days a week M,W,F Terbinafine HCl 1 % External Cream Apply topically to affected area 2 times a day. Apply to affected area as directed. Ketotifen Fumarate 0.025 % Ophthalmic Solution 1 Drop in the morning and 1 Drop before bedtime. Uses Equate brand eye drops as needed . diphenhydrAMINE HCl 25 MG Oral Capsule Take 1 Capsule by mouth every 6 hours as needed for Itching. Loteprednol Etabonate 0.5 % Ophthalmic Suspension (Lotemax) NEEDED Fluticasone Propionate 50 MCG/ACT Nasal Suspension Administer 2 Sprays into each nostril as needed for Rhinitis. 18.2 mL 0 Triamcinolone Acetonide 0.1 % External Ointment (Aristocort) Apply topically to affected area as needed (facial inflammation). Apply to affected Area twice a day as needed 15 g 2 methylPREDNISolone 4 MG Oral Tablet Therapy Pack (Medrol Dosepack) follow package directions 21 Tablet 1 valACYclovir HCl 500 MG Oral Tablet (Valtrex) take 1 tablet by mouth three times a day for 5 days if needed 30 Tablet 5 Ibuprofen 600 MG Oral Tablet (Motrin) TAKE ONE TABLET BY MOUTH THREE TIMES A DAY NEEDED FOR [id number] Tablet 1 Lisinopril 20 MG Oral Tablet (Prinivil) Take 1 Tablet by mouth in the morning. 90 Tablet 3 No current facility-administered medications for this visit. ALLERG IES: Environmental [pollen] OBJECTIVE: GEN: Healthy, alert, no distress, appears oriented, pleasant, and cooperative. SKIN: A. Right dorsal foot: 2 mm brown macule ASSESSMENT/PLAN: 1. Lesion A.right dorsal foot. Favor benign nevus, r/o atypia Shave Biopsy of the lesion noted above to establish and confirm diagnosis. The procedure, risks, benefits, alternatives and expected outcomes were discussed with the patient and consent was obtained.Time out called. Patient identified, procedure verified, site identified and verified. Patient and staff present in agreement. Area prepped with alcohol and anesthetized with 0.5% lidocaine with epinephrine at 1:200,000 concentration. Biopsy of lesion performed. 20% AlCl and bandaging applied. Specimen sent to pathology. Patient instructed in routine post-op care. Follow-up: as scheduled before The patient was encouraged to contact me with any further questions or concerns. Giuliana Bedolla MD 05/23/2023 documented in this encounter Nursing Notes * Kellie Zepeda LPN - 05/23/2023 8:43 AM EDT Chief Complaint Patient presents with Lesion Pt presents today for a spot on R foot. Pt noticed this the day before yesterday (05/21/23) Pt denies any pain or itchiness at this spot at this time documented in this encounter Plan of Treatment Upcoming Encounters Date Type Department Care Team (Late st Contact Info) Description 06/20/2023 9:30 AM EDT Office Visit Dermatology [facility] 200 [facility] [place] [address] Giuliana Bedolla MD 200 [facility] [place] [address] 07/08/2023 9:45 AM EDT Imaging Radiology [address] 132 [place] [address] 08/15/2023 9:00 AM EDT Office Visit General Internal Medicine [facility] 200 [facility] [place] [address] Danny Crystal MD 200 [facility] [place] [address] 09/09/2023 3:30 PM EDT Procedure Only Urology, [facility] 132 [facility] [place] [address] Pepito Malhotra MD 27 [facility] [address] [place] [address] 04/15/2024 11:00 AM EST Office Visit Rheumatology [address] [place] [address] Porter Sanchez MD [address] [place] [address] [place] [address] Pending Results Name Type Priority Associated Diagnoses Date /Time SURGICAL PATHOLOGY Pathology Routine Skin lesion 05/23/2023 8:59 AM EDT Scheduled Procedures Name Priority Associated Diagnoses Date/Ti me COLONOSCOPY FLEXIBLE PROXIMA L DIAGNOSTIC Recall History of colon polyps Screen for colon cancer Health Maintenance Due Date Last Done Comments COVID-19 Vaccine ( season) 2023 12/18/2022, 08/13/2022, [...] D LEVEL ONCE IN A LIFETIME-USE SMARTSET# [id number] Completed 04/11/2023, 04/18/2022, 01/18/2020, Additional history exists [...] as of this encounter Visit Diagnoses Diagnosis Skin lesion- Primary Unspecified disorder of skin and subcutaneous tissue documented in this encounter Advance Directives Latest Code Status on File Code Status Date Activated Date Inactivated Comments Full Code 07/12/2017 8:19 AM 07/12/2017 3:32 PM This order reflects the patients wishes and were consensually agreed upon. Care Teams International Trade Compliance Manager Relationship Specialty Start Date End Date Danny Crystal MD 200 [place] [address] PCP - General Internal Medicine 04/01/17 documented as of this encounter
--- OUTSIDE RECORDS SUMMARY | 2023-08-17 03:43 | External Medical Summary | Summary of Care ---
Author Name Unknown Organization [facility] Address [address] [facility] [place] [address] Phone [phone] Care Team Providers Care Insurance Plan Specialist Name Role Phone Danny Crystal MD Primary [...] Description 08/16/2023 12:45 PM EDT Imaging Radiology [facility] 132 [facility] [place] [address] 08/21/2023 11:30 AM EDT Office Visit Orthopaedics [facility] 132 [facility] [place] [address] Millie Stout MD 132 [facility] [place] [address] 09/09/2023 3:30 PM EDT Procedure Only Urology, [facility] 132 [facility] [place] [address] Pepito Malhotra MD [address] [place] [address] [place] [address] 01/09/2024 1:00 PM EST Office Visit Dermatology [facility] [address] [place] [address] Shilpi Dobbs PA-C 200 [facility] [place] [address] 04/15/2024 11:00 AM EST Office Visit Rheumatology [place] [address] [facility] [place] [address] Porter Sanchez MD [facility] [place] [address] 07/14/2024 1:00 PM EDT Office Visit General Internal Medicine [facility] [address] [place] [address] Danny Crystal MD 200 [place] [address] 07/17/2024 8:30 AM EDT Imaging Radiology [facility] 1st [facility] [place] [address] [place] [address] Scheduled Procedures Name Priority Associated Diagnoses Date/Ti [...] D LEVEL ONCE IN A LIFETIME-USE SMARTSET# [id number] Completed 04/11/2023, 04/18/2022, 01/18/2020, Additional history exists [...] and were consensually agreed upon. Care Teams Insurance Plan Specialist Relationship Specialty Start Date End Date Danny Crystal MD 200 [place] [address] PCP - General Internal Medicine 04/01/17 documented as of this encounter
--- OUTSIDE RECORDS SUMMARY | 2023-08-17 03:43 | External Medical Summary | Summary of Care ---
Author Name Unknown Organization [facility] Address [address] [facility] [place] [address] Phone [phone] Care Team Providers Care Steel Inspector Name Role Phone Danny Crystal MD Primary Care Provider + Reason for Visit * Reason Comments Outpatient Testing Encounter Details Date Type Department Care Team (Late st Contact Info) Description 08/15/2023 9:30 AM EDT [facility] [place] [address] [place] [phone] [place], Lab [address] [facility] [place] [address] HTN, goal below 140/90; Acute pain of left knee; Encounter for long-term (current) use of medications Allergies Active Allergy Reactions Criticality Noted Date [...] Edema 08/03/2004 09/15/2018 Calculus of gallbladder 12/28/200106/2017 Sebaceous cyst 11/29/2000 08/15/2023 AT RISK FOR [...] Description 08/16/2023 12:45 PM EDT Imaging Radiology [facility] [address] [place] [address] 08/21/2023 11:30 AM EDT Office Visit Orthopaedics [facility] [address] [place] [address] Millie Stout MD [address] [place] [address] 09/09/2023 3:30 PM EDT Procedure Only Urology, [facility] [address] [place] [address] Pepito Malhotra MD 27 [facility] [address] [place] [address] 01/09/2024 1:00 PM EST Office Visit Dermatology [facility] [address] [place] [address] Shilpi Dobbs PA-C [address] [place] [phone] 04/15/2024 11:00 AM EST Office Visit Rheumatology [place] [address] [place] [address] Porter Sanchez MD [address] [employer] [place] [address] 07/14/2024 1:00 PM EDT Office Visit General Internal Medicine [facility] 200 [facility] [place] [address] Danny Crystal MD 200 [facility] [place] [address] 07/17/2024 8:30 AM EDT Imaging Radiology [address] [place] [address] Pending Results Name Type Priority Associated Diagnoses Date /Time COMPREHENSIVE METABOLIC PANEL Lab Routine HTN, goal below 140/90 08/15/2023 9:28 AM EDT LIPID PANEL WITH DIRECT LDL IF TG IS HIGH Lab Routine HTN, goal below 140/90 08/15/2023 9:28 AM EDT LYME DISEASE ANTIBODY SCREEN WITH REFLEX TO CONFIRMATION Lab Routine Acute pain of left knee 08/15/2023 9:28 AM EDT IRON SCREEN, INCLUDING TIBC Lab Routine Encounter for long-term (current) use of medications 08/15/2023 9:28 AM EDT FERRITIN Lab Routine Encounter for long-term (current) use of medications 08/15/2023 9:28 AM EDT LYME DISEASE ANTIBODY SCREEN Lab Routine Acute pain of left knee 08/15/2023 9:28 AM EDT Scheduled Procedures Name Priority Associated [...] 07/15/2024 07/16/2023, 06/25, 07/06/2022, Additional history exists Albumin/Creatinine Ratio 08/15/2025 08/15/2022 [...] D LEVEL ONCE IN A LIFETIME-USE SMARTSET# [id number] Completed 04/11/2023, 04/18/2022, 01/18/2020, Additional history exists [...] Not on filedocumented as of this encounter Procedures Procedure Name Priority Date/Time Associated Diagnosis Comments DIFFERENTIAL, AUTOMATED Routine 08/15/2023 9:28 AM EDT Acute pain of left knee CBC Routine 08/15/2023 9:28 AM EDT Acute pain of left knee CBC Routine 08/15/2023 9:28 AM EDT Acute pain of left knee documented in this encounter Results * (ABNORMAL) DIFFERENTIAL, AUTOMATED (08/15/2023 9:28 AM EDT) WBC 10.50 4.00 - 10.80 K/uL 08/15/2023 9:38 AM EDT [facility] [place] 56-02 Neutrophils % 84.2(H) 40.0 - 75.0 % 08/15/2023 9:38 AM EDT [facility] [place] 56-02 Lymphocytes % 8.4(L) 18.0 - 42.0 % 08/15/2023 9:38 AM EDT [facility] [place] 56-02 Monocytes % 6.4 1.0 - 11.0 % 08/15/2023 9:38 AM EDT [facility] [place] 56-02 Eosinophils % 0.8 0.0 - 6.0 % 08/15/2023 9:38 AM EDT [facility] [place] 56-02 Basophils % 0.2 0.0 - 2.0 % 08/15/2023 9:38 AM EDT [facility] [place] 56-02 Absolute Neutrophils 8.85(H) 1.80 - 7.70 K/uL 08/15/2023 9:38 AM EDT [facility] [place] 56-02 Absolute Lymphocytes 0.88(L) 1.00 - 4.80 K/ul 08/15/2023 9:38 AM EDT [facility] [place] 56-02 Absolute Monocytes 0.67 0.00 - 1.10 K/uL 08/15/2023 9:38 AM EDT [facility] [place] 56-02 Absolute Eosinophils 0.08 0.00 - 0.70 K/uL 08/15/2023 9:38 AM EDT [facility] [place] 56-02 Absolute Basophils 0.02 0.00 - 0.20 K/uL 08/15/2023 9:38 AM EDT [facility] 56-02 Blood Venous blood specimen / Unknown Venipuncture / Unknown 08/15/2023 9:28 AM EDT 08/15/2023 9:28 AM EDT Danny Crystal MD LAB BLOOD ORDERA BLES [facility] 200 [place], [place] [id number] * (ABNORMAL) CBC (08/15/2023 9:28 AM EDT) WBC 10.50 4.00 - 10.80 K/uL 08/15/2023 9:38 AM EDT [facility] RBC 4.15 3.85 - 5.15 M/uL 08/15/2023 9:38 AM EDT [facility] 56 HGB 12.1 12.0 - 15.3 g/dL 08/15/2023 9:38 AM EDT [facility] HCT 35.9(L) 36.0 - 45.2 % 08/15/2023 9:38 AM EDT [facility] MCV 86.5 81.5 - 97.5 fL 08/15/2023 9:38 AM EDT [facility] 56 MCH 29.2 27.0 - 34.0 pg 08/15/2023 9:38 AM EDT [facility] 56 MCHC 33.7 32.0 - 36.0 g/dL 08/15/2023 9:38 AM EDT [facility] 56 RDW 13.1 11.5 - 15.5 % 08/15/2023 9:38 AM EDT [facility] 56 PLT 256 140 - 400 K/uL 08/15/2023 9:38 AM EDT [facility] MPV 9.0 6.6 - 11.1 fL 08/15/2023 9:38 AM EDT [facility] 56 Blood Venous blood specimen / Unknown Venipuncture / Unknown 08/15/2023 9:28 AM EDT 08/15/2023 9:28 AM EDT Danny Crystal MD LAB BLOOD ORDERA BLES [facility] 200 [facility] [place] [id number] documented in this encounter Visit Diagnoses Diagnosis HTN, goal below 140/90 Unspecified essential hypertension Acute pain of left knee Encounter for long-term (current) use of medications Encounter for long-term (current) use of other medications Screening mammogram for breast cancer documented in this encounter Advance Directives * Full Code (Latest Code Status on File) Date Activated Date Inactivated Comments 07/12/2017 8:19 AM 07/12/2017 3:32 PM This order r eflects the patients wishes and were consensually agreed upon. Care Teams Steel Inspector Relationship Specialty Start Date End Date Danny Crystal MD 200 [facility] [place] [address] PCP - General Internal Medicine 04/01/17 documented as of this encounter
--- OUTSIDE RECORDS SUMMARY | 2023-08-17 03:43 | External Medical Summary ---
Author Name Unknown Address Unknown Organization [id number]:[facility] - [address] [place] [address] Laboratory Report Ordering Provider Test Date Status XANDER MCCORMICK 08/15/2023 09:28:35 Final Observation Date Value Abnormality Reference (Units ) Status BUN 08/15/2023 09:28:35 11 6-20 (mg/dL) Final Creatinine 08/15/2023 09:28:35 0.7 0.5-1.0 (mg/dL) Final Glomerular filtration rate/1.73 sq M.predicted [Volume Rate/Area] in Serum, Plasma or Blood by Creatinine-based formula (CKD-EPI) 08/15/2023 09:28:35 >90 >=60 (mL/min) Final eGFR is calculated based on the CKD-EPI 2020 equation Sodium 08/15/2023 09:28:35 139 135-146 (m mol/L) Final Potassium 08/15/2023 09:28:35 4.7 3.5-5.1 (m mol/L) Final Cl 08/15/2023 09:28:35 103 98-107 (mm ol/L) Final CO2 08/15/2023 09:28:35 26 22-32 (mmo l/L) Final Anion gap 08/15/2023 09:28:35 10 7-15 (mmol /L) Final Glucose 08/15/2023 09:28:35 106 70-120 (mg /dL) Final Albumin 08/15/2023 09:28:35 4.6 3.8-5.0 (g /dL) Final AST (Aspartate aminotransferase) 08/15/2023 09:28:35 20 10-35 (U/L) Final Alk Phos 08/15/2023 09:28:35 53 35-130 (U/ L) Final Bilirubin, Total 08/15/2023 09:28:35 0.7 <=1 .2 (mg/dL) Final Calcium 08/15/2023 09:28:35 9.2 8.4-10.2 ( mg/dL) Final Protein 08/15/2023 09:28:35 6.3 6.0-8.3 (g /dL) Final ALT (Alanine aminotransferase) 08/15/2023 09:28:35 15 10-35 (U/L) Final Performing Location [facility] [address] [place] [address]
--- OUTSIDE RECORDS SUMMARY | 2023-08-17 03:43 | External Medical Summary ---
Author Name Unknown Address Unknown Organization [id number]:[facility] - [address] [place] [address] Laboratory Report Ordering Provider Test Date Status XANDER MCCORMICK 08/15/2023 09:28:35 Final Observation Date Value Abnormality Reference (Units ) Status Ferritin 08/15/2023 09:28:35 231 Above high normal 13 -150 (ng/mL) Final Postmenopausal women have hi gher ferritin levels than pre-menopausal women. The above reference interval is based on pre-menopausal women. Performing Location [facility] - [address] [place] [address]
--- OUTSIDE RECORDS SUMMARY | 2023-08-17 03:43 | External Medical Summary | Summary of Care ---
Author Name Unknown Organization [facility] Address [address] [facility] [place] [address] Phone [phone] Care Team Providers Care Computing Systems Mechanic Name Role Phone Danny Crystal MD Primary Care Provider + Reason for Visit * Reason Comments Infusion Reclast * Episode Based Medications (Routine) - Authorized Specialty Diagnoses / Procedures Referred By Contradha t Referred To Contact Diagnoses Senile osteoporosis Procedures [place] ZOLEDRONIC ACID 1MG Porter Sanchez MD [address] [facility] [place] [address] Anc Hem/Onc [address] [place] [address] Referral ID Status Reason Start Date Expiration Date V isits Requested Visits Authorized [id number] Authorized 04/11/2023 04/11/2024 [id number] Encounter Details Date Type Department Care Team (Latest Contact Info) Description 05/02/2023 9:00 AM EST Hem/Onc Treatment Hematology/Oncology Treatment, [address] [place] [address] Maria G, Chair [address] [place] [address] Senile osteoporosis* Allergies Active Allergy Reactions Criticality Noted Date Comments Pollen 11/29/2014 documented as of this encounter (statuses as of 06/29/2023) Medications Medication Sig Dispensed Refills Start Date [...] 5 days if needed 30 Tablet 5 02/09/2022 4 Discontinue d(Refill) Ibuprofen 600 MG Oral Tablet (Motrin)Indications :Systemic lupus erythematosus (HCC) TAKE ONE TABLET BY MOUTH THREE TIMES A DAY NEEDED FOR PAIN 270 Tablet 1 10/01/2022 4 Discontinue d(Refill) Lisinopril 20 MG Oral Tablet (Prinivil)Indicatio ns:HTN, goal below 140/90 TAKE ONE TABLET BY MOUTH EVERY MORNING 90 Tablet 1 02/11/2023 4 Discontinue d(Refill) documented as of this encounter (statuses as of 06/29/2023) Active Problems Problem Noted Date Diagnosed Date [...] as of this encounter (statuses as of 06/29/2023) Resolved Problems Problem Noted Date Diagnosed Date [...] as of this encounter (statuses as of 06/29/2023) Immunizations Name Administration Dates Next Due COVID-19 [...] on file documented as of this encounter Last Filed Vital Signs Vital Sign Reading Time Taken Comments Blood Pressure 137/82 05/02/2023 9:24 AM EST Pulse 89 05/02/2023 9:24 AM EST Temperature 36.8 C (98.3 F) 05/02/2023 9:24 AM ES T Respiratory Rate 18 05/02/2023 9:24 AM EST Oxygen Saturation 96% 05/02/2023 9:24 AM EST Inhaled Oxygen Concentration - - Weight - - Height - - Body Mass Index - - documented in this encounter Nursing Notes * Terra Dominguez, PEGGY - 05/02/2023 9:24 AM EST 0915: Pt arrived for Reclast infusion. PIV in LFA. Pt tolerated well. VSS. Pt reports she had a very bad reaction last year where her fingers swelled up like "hot dogs". Pt has lupus and feels it mayhave been due to that. Pt takes large amounts of Ibuprofen a day and and reports she will take APAPat home if needed. Pt also has a prednisone order for a reaction. Pt has picked it up and has it ready if needed. I offered to run patients infusion a little slower and flush it well afterwards. Pt is in agreement. 0940: Pts Reclast is finished and patient has agreed to stay for a few minutes while it flushes. 0950: Pt tolerated Reclast infusion well. PIV removed intact. Pt to follow up with . Discharged in stable condition. documented in this encounter Plan of Treatment Upcoming Encounters Date Type Department Care Team (Late st Contact Info) Description 07/08/2023 9:45 AM EDT Imaging Radiology [address] 132 [facility] [place] [address] 08/15/2023 9:00 AM EDT Office Visit General Internal Medicine [facility] 200 [facility] [place] [address] Danny Crystal MD 200 [facility] [place] [address] 09/09/2023 3:30 PM EDT Procedure Only Urology, [facility] 132 [facility] [place] [address] Pepito Malhotra MD [address] [place] [address] [place] [address] 01/09/2024 1:00 PM EST Office Visit Dermatology [facility] 200 [facility] [place] [address] Shilpi Dobbs PA-C 200 [facility] [place] [phone] 04/15/2024 11:00 AM EST Office Visit Rheumatology [place] [address] [facility] [place] [address] Porter Sanchez MD [facility] [employer] [place] [address] Scheduled Procedures Name Priority Associated Diagnoses Date/Ti [...] D LEVEL ONCE IN A LIFETIME-USE SMARTSET# [id number] Completed 04/11/2023, 04/18/2022, 01/18/2020, Additional history exists [...] as of this encounter Visit Diagnoses Diagnosis Senile osteoporosis- Primary documented in this encounter Administered Medications Inactive Administered Medications - up to 3 most recent administrations Medication Order MAR Action Action Date Dose Rate Site NSS infusion 500 mL, Intravenous, at 50 mL/hr, CONTINUOUS, Starting on Darlyn 05/02/23 at 1015, Until Darlyn 05/02/23 at 1430 Start Infusion 05/02/2023 9:17 AM EST 500 mL 50 mL/hr Zoledronic Acid (Reclast) 5 mg in 100 mL PREMIX ivpb 5 mg, IV Piggyback, ONCE, 1 dose, On Darlyn 05/02/23 at 1045 Start Infusion 05/02/2023 9:18 AM EST 5 mg 400 mL/hr documented in this encounter Advance Directives Latest Code Status on File Code Status Date Activated Date Inactivated Comments Full Code 07/12/2017 8:19 AM 07/12/2017 3:32 PM This order reflects the patients wishes and were consensually agreed upon. Care Teams Computing Systems Mechanic Relationship Specialty Start Date End Date Danny Crystal MD 200 [place] [address] PCP - General Internal Medicine 04/01/17 documented as of this encounter
--- OUTSIDE RECORDS SUMMARY | 2023-08-17 03:43 | External Medical Summary | Summary of Care ---
Author Name Unknown Organization [facility] Address [address] [facility] [place] [address] Phone [phone] Care Team Providers Care Elevator Constructor Electric Name Role Phone Danny Crystal MD Primary [...] Description 08/16/2023 12:45 PM EDT Imaging Radiology [facility] 132 [facility] [place] [address] 08/21/2023 11:30 AM EDT Office Visit Orthopaedics [facility] [address] [facility] [place] [address] Millie Stout MD 132 [facility] [place] [address] 09/09/2023 3:30 PM EDT Procedure Only Urology, [facility] 132 [facility] [place] [address] Pepito Malhotra MD [address] [place] [address] [place] [address] 01/09/2024 1:00 PM EST Office Visit Dermatology [facility] [address] [place] [address] Shilpi Dobbs PA-C 200 [facility] [place] [phone] 04/15/2024 11:00 AM EST Office Visit Rheumatology [place] [address] [facility] [place] [address] Porter Sanchez MD [facility] [place] [address] 07/14/2024 1:00 PM EDT Office Visit General Internal Medicine [facility] [address] [place] [address] Danny Crystal MD 200 [facility] [place] [address] 07/17/2024 8:30 AM EDT Imaging Radiology [facility] [address] [facility] [place] [address] [place] [address] Scheduled Procedures Name Priority Associated Diagnoses Date/Ti [...] D LEVEL ONCE IN A LIFETIME-USE SMARTSET# [id number] Completed 04/11/2023, 04/18/2022, 01/18/2020, Additional history exists [...] and were consensually agreed upon. Care Teams Elevator Constructor Electric Relationship Specialty Start Date End Date Danny Crystal MD 200 [facility] [place] [address] PCP - General Internal Medicine 04/01/17 documented as of this encounter
--- OUTSIDE RECORDS SUMMARY | 2023-08-17 03:43 | External Medical Summary | Summary of Care ---
Author Name Unknown Organization [facility] Address [address] [facility] [place] [address] Phone [phone] Care Team Providers Care Square Dance Caller Name Role Phone Danny Crystal MD Primary Care Provider + Reason for Visit * Reason Comments Follow Up Skin check- no acute concerns at this time Encounter Details Date Type Department Care Team (Late st Contact Info) Description 06/20/2023 9:30 AM EDT Office Visit Dermatology [facility] [place] [address] [facility] [place] [address] Giuliana Bedolla MD [address] [facility] [place] [address] Multiple benign nevi*; History of malignant melanoma of skin; Other skin changes due to chronic exposure to nonionizing radiation Allergies Active Allergy Reactions Criticality Noted Date Comments Pollen 11/29/2014 documented as of this encounter (statuses as of 07/04/2023) Medications Medication Sig Dispensed Refills Start Date [...] package directions 21 Tablet 1 04/11/2023 Active Additional Information Patient not taking.Reported on 06/20/2023 valACYclovir HCl 500 MG Oral Tablet (Valtrex)Indication s:Herpes simplex virus infection take 1 tablet by mouth three times a day for 5 days if needed 30 Tablet 5 05/02/2023 Active Ibuprofen 600 MG Oral Tablet (Motrin)Indications :Systemic lupus erythematosus (HCC) TAKE ONE TABLET BY MOUTH THREE TIMES A DAY NEEDED FOR PAIN 270 Tablet 1 05/11/2023 05/10/2024 Active Lisinopril 20 MG Oral Tablet (Prinivil)Indicatio ns:HTN, goal below 140/90 Take 1 Tablet by mouth in the morning. 90 Tablet 3 05/17/2023 Active documented as of this encounter (statuses as of 07/04/2023) Active Problems Problem Noted Date Diagnosed Date [...] as of this encounter (statuses as of 07/04/2023) Resolved Problems Problem Noted Date Diagnosed Date [...] as of this encounter (statuses as of 07/04/2023) Immunizations Name Administration Dates Next Due COVID-19 [...] on file documented as of this encounter Patient Instructions * Patient Instructions* Giuliana Bedolla MD - 06/20/2023 9:42 AM EDT SUNSCREEN USE AND SUN PROTECTION: 1. The best protection is sun avoidance. Seek shade if you can, especially between 9am to 5pm (peaksun hours). 2. Use sunscreen with a Sun Protection Factor (SPF) of 30 or more that protects from Ultraviolet A (UVA) and Ultraviolet B (UVB) wavelength light. This is referred to as broad spectrum sun protection. Unfortunately, even though the protection is broad it is not complete, therefore making sun avoidance the best protection. UVB and UVA have both been implicated in causing skin cancers. Older sunscreens only protected from UVB and sunscreens with added UVA protection should contain Titanium dioxide, Zinc oxide, Mexoryl or Parsol 1789, also known as Avobenzone. 3. Use sun protection daily. Apply 20-30 minutes before going out and reapply every 2 hours. No sunscreen is truly water ''proof'' and it will wash away with sweat, swimming and rubbing. 4. Wear tightly woven, loose fitting (cooler) long sleeved clothing, UV-blocking clothing and sun glasses (eyes need protection as well) and wide-brimmed hatwear (no straw hats with holes because light still gets through). HOW TO CHECK YOUR MOLES: 1. Check moles every month and have a relative/friend check your back if possible. The use of a handheld mirror can help as well. The most common place for melanoma in women are the back and legs, and for men is the back. 2. Look for the ABCD's of melanoma: Asymmetry (strange shape - not round or oval), Borders (notched, scalloped or irregular edges), Color (very black or multi-colored), Diameter (size greater than 5mm or the size greater than a pencil eraser). 3. Changes in old moles and growths of new ones in relation to the ABCD's are the most important factors. 4. Some people have many moles that fit the ABCD criteria. At times the best thing is to look for the ''Ugly Duckling'' mole - the one that stands out the most. 5. If there are any questions on a mole please do not hesitate in calling our office at [phone] to have it evaluated. documented in this encounter Progress Notes * Giuliana Bedolla MD - 06/20/2023 9:40 AM EDT SUBJECTIVE: History of Present Illness: Deangelo Burgos is a 62 year old female seen today for follow up skin check. No lesions of concern. DERMATOLOGIC HISTORY: Melanoma History: MIS L forearm s/p excision 2020 ("Suspicious for very early evolving melanoma in situ") MIS L forearm 2009 ("Atypical junctional melanocytic proliferation...At worst, this represents evolving malignant melanoma in situ") Family History of Melanoma or other related malignancies: yes Mom, father, and sister with melanoma in situ Mother had breast cancer PMHx: SLE-follows with rheumatology REVIEW OF SYSTEMS: SKIN: No other new or changing moles. HEME/LYMPH: No new or enlarging lumps or bumps. No systemic symptoms MEDICA TIONS: Current Outpatient Medications Medication Sig Dispense Refill DAILY VITAMINS PO TABS daily 0 0 REFRESH OPTIVE 0.5-0.9 % OP SOLN daily as needed Slow Fe 142 (45 Fe) MG Oral Tablet Extended Release 3 days a week M,W,F Ketotifen Fumarate 0.025 % Ophthalmic Solution 1 Drop in the morning and 1 Drop before bedtime. Uses Equate brand eye drops as needed . diphenhydrAMINE HCl 25 MG Oral Capsule Take 1 Capsule by mouth every 6 hours as needed for Itching. Loteprednol Etabonate 0.5 % Ophthalmic Suspension (Lotemax) NEEDED Triamcinolone Acetonide 0.1 % External Ointment (Aristocort) Apply topically to affected area as needed (facial inflammation). Apply to affected Area twice a day as needed 15 g 2 valACYclovir HCl 500 MG Oral Tablet (Valtrex) take 1 tablet by mouth three times a day for 5 days if needed 30 Tablet 5 Ibuprofen 600 MG Oral Tablet (Motrin) TAKE ONE TABLET BY MOUTH THREE TIMES A DAY NEEDED FOR BEUA491 Tablet 1 Lisinopril 20 MG Oral Tablet (Prinivil) Take 1 Tablet by mouth in the morning. 90 Tablet 3 Terbinafine HCl 1 % External Cream Apply topically to affected area 2 times a day. Apply to affected area as directed. Fluticasone Propionate 50 MCG/ACT Nasal Suspension Administer 2 Sprays into each nostril as needed for Rhinitis. 18.2 mL 0 methylPREDNISolone 4 MG Oral Tablet Therapy Pack (Medrol Dosepack) follow package directions (Patient not taking: Reported on 06/20/2023) 21 Tablet 1 No current facility-administered medications for this visit. ALLERG IES: Environmental [pollen] OBJECTIVE: GEN: Healthy, alert, no distress, appears oriented, pleasant, and cooperative. Lymph Nodes: Lymph nodes in head, neck, supraclavicular, axillary, and inguinal areas show no lymphadenopathy. SKIN: Detailed exam of hair, face including lids and lips, neck, back, chest, abdomen, buttocks, right and left upper extremities, right and left lower extremities including the nails and digits completed and are normal except: 1. Scattered at the chest, abdomen, back, upper and lower extremities are multiple evenly pigmentedbrown macules and papules without significant irregularity 2. There are well-healed primary sites on left forearm without clinical evidence of local, satellite, or in-transit recurrence. ASSESS MENT/PLAN: 1. Multiple benign-appearing nevi No features concerning for malignancy on exam today. Continue to monitor with monthly self-skin exams. Patient counseled on ABCDs of melanoma. Sunscreen and photoprotection advised. Patient to contact physician for any new or changing lesions or other concerns. Dermoscopy was used for physical examination of pigmented lesions during [facility] office visit. 2. History of Melanoma in situ. Other skin changes due to chronic exposure to nonionizing radiation - History was obtained regarding new or changing moles. - Patient counseled on self-examination for new or changing moles. The signs and symptoms of skin cancer were reviewed and the patient was advised to practice sun protection and sun avoidance, use daily sunscreen, and perform regular self-skin and lymph node exams on a monthly basis. I instructed the patient to call if any new lesions appear or current lesions change *Pt asked about thickened/discolored toenails on left foot. Explained process of work-up/dx/management of onychomycosis. Patient will hold off on pursuing dx/tx for this at this time. Follow-up: 6 months The patient was encouraged to contact me with any further questions or concerns. Giuliana Bedolla MD 06/20/2023 documented in this encounter Nursing Notes * Mary Sifuentes LPN - 06/20/2023 9:33 AM EDT Patient identified by name and date of . Do you have any concerns about pain management for today's visit? No Living Will or Advance Directive for Health Care as noted on problem list. [facility] is a way you can talk to your provider online through e-mail. Would you like to sign up? I can activate it for you? ALREADY ACTIVE Chief Complaint Patient presents with Follow Up Skin check- no acute concerns at this time documented in this encounter Plan of Treatment Upcoming Encounters Date Type Department Care Team (Late st Contact Info) Description 07/08/2023 9:45 AM EDT Imaging Radiology [facility] [address] [facility] [address] [facility] [place] [address] 08/15/2023 9:00 AM EDT Office Visit General Internal Medicine [facility] [address] [place] [address] Danny Crystal MD [address] [place] [address] 09/09/2023 3:30 PM EDT Procedure Only Urology, [facility] [address] [facility] [place] [address] Pepito Malhotra MD [address] [facility] [address] [place] [address] 01/09/2024 1:00 PM EST Office Visit Dermatology [facility] [address] [place] [address] Shilpi Dobbs PA-C [address] [facility] [place] [phone] 04/15/2024 11:00 AM EST Office Visit Rheumatology [facility] [address] [facility] [place] [address] Porter Sanchez MD [address] [place] [address] Scheduled Procedures Name Priority Associated Diagnoses Date/Ti [...] D LEVEL ONCE IN A LIFETIME-USE SMARTSET# [id number] Completed 04/11/2023, 04/18/2022, 01/18/2020, Additional history exists [...] as of this encounter Visit Diagnoses Diagnosis Multiple benign nevi- Primary Benign neoplasm of skin, site unspecified History of malignant melanoma of skin Personal history of malignant melanoma of skin Other skin changes due to chronic exposure to nonionizing radiation documented in this encounter Advance Directives Latest Code Status on File Code Status Date Activated Date Inactivated Comments Full Code 07/12/2017 8:19 AM 07/12/2017 3:32 PM This order reflects the patients wishes and were consensually agreed upon. Care Teams Square Dance Caller Relationship Specialty Start Date End Date Danny Crystal MD [address] [place] [address] PCP - General Internal Medicine 04/01/17 documented as of this encounter
--- OUTSIDE RECORDS SUMMARY | 2023-08-17 03:43 | External Medical Summary ---
Author Name Unknown Address Unknown Organization K09:[facility] [place] [address] Laboratory Report Ordering Provider Test Date Status XANDER MCCORMICK 08/15/2023 09:28:35 Final Observation Date Value Abnormality Reference (Units ) Status SYNC LEUKOCYTES IN BLOOD BY AUTOMATED COUNT 08/15/2023 09:28:35 10.50 4.00-10.80 (K/uL) Final Segs 08/15/2023 09:28:35 84.2 Above high normal 40.0-75.0 (%) Final Lymphs % 08/15/2023 09:28:35 8.4 Below low normal 18.0-42.0 (%) Final Monos 08/15/2023 09:28:35 6.4 1.0-11.0 (%) Final Eosinophils 08/15/2023 09:28:35 0.8 0.0-6.0 (%) Final Basos 08/15/2023 09:28:35 0.2 0.0-2.0 (%) Final Absolute Segs 08/15/2023 09:28:35 8.85 Above high normal 1.80-7.70 (K/uL) Final Lymphs, absolute 08/15/2023 09:28:35 0.88 Below low normal 1.00-4.80 (K/ul) Final Monos, Abs 08/15/2023 09:28:35 0.67 0.00-1.10 (K/uL) Final Eos, Abs 08/15/2023 09:28:35 0.08 0.00-0.70 (K/uL) Final Basos, Abs 08/15/2023 09:28:35 0.02 0.00-0.20 (K/uL) Final Performing Location [facility] [address]
--- OUTSIDE RECORDS SUMMARY | 2023-08-17 03:43 | External Medical Summary ---
Author Name Unknown Address Unknown Organization K01:[facility] [place] - [address] [facility] [address] Laboratory Report Ordering Provider Test Date Status DO JACEARAMISTEIN 08/15/2023 09:28:35 Final Observation Date Value Abnormality Reference (Units ) Status Triglyceride 08/15/2023 09:28:35 94 <=174 ( mg/dL) Final Triglyceride Reference Range s (mg/dL):
<150 Acceptable
150-174 Borderline high
175-499 High
>=500 Very high Cholesterol 08/15/2023 09:28:35 166 <200 (mg /dL) Final Total Cholesterol Reference Ranges (mg/dL):
<200 Desirable
200-239 Borderline high
>=240 High HDL 08/15/2023 09:28:35 64 >49 (mg/dL ) Final HDL Cholesterol Reference Ra nges (mg/dL):
>=60 High (Desirable)
<50 Low (Undesirable) For Females
<40 Low (Undesirable) For Males NON-HDL CHOLESTEROL 08/15/2023 09:28:35 102 <=159 (mg/dL) Final Non-HDL Cholesterol Referenc e Range (mg/dL):
<100 Target level for high risk ASCVD patient
<130 Optimal for general population
130-159 Near optimal for general population
160-189 Borderline High
190-219 High
>=220 Very High LDL, (calculated) 08/15/2023 09:28:35 83 <= 129 (mg/dL) Final LDL Cholesterol Reference Ra nges (mg/dL):
<70 Target level for high risk ASCVD patient
<100 Optimal for general population
100-129 Near optimal for general population
130-159 Borderline high
160-189 High
>=190 Very high Performing Location [facility] [place] - [address] [facility] [address]
--- OUTSIDE RECORDS SUMMARY | 2023-08-17 03:43 | External Medical Summary | Summary of Care ---
Author Name Unknown Organization [facility] Address [address] [facility] [place] [address] Phone [phone] Care Team Providers Care Milk Sampler Name Role Phone Danny Crystal MD Primary [...] Description 08/16/2023 12:45 PM EDT Imaging Radiology [facility] [address] [facility] [place] [address] 08/21/2023 11:30 AM EDT Office Visit Orthopaedics [facility] [address] [facility] [place] [address] Millie Stout MD [address] [facility] [place] [address] 09/09/2023 3:30 PM EDT Procedure Only Urology, [facility] [address] [facility] [place] [address] Pepito Malhotra MD [address] [place] [address] [place] [address] 01/09/2024 1:00 PM EST Office Visit Dermatology [facility] [address] [place] [address] Shilpi Dobbs PA-C [address] [facility] [place] [phone] 04/15/2024 11:00 AM EST Office Visit Rheumatology [place] [address] [facility] [place] [address] Porter Sanchez MD [facility] [place] [address] 07/14/2024 1:00 PM EDT Office Visit General Internal Medicine [facility] [address] [place] [address] Danny Crystal MD [address] [facility] [place] [address] 07/17/2024 8:30 AM EDT Imaging Radiology [facility] [address]st [facility] [place] [address] [place] [address] Scheduled Procedures Name Priority Associated Diagnoses Date/Ti [...] D LEVEL ONCE IN A LIFETIME-USE SMARTSET# [id number] Completed 04/11/2023, 04/18/2022, 01/18/2020, Additional history exists [...] and were consensually agreed upon. Care Teams Milk Sampler Relationship Specialty Start Date End Date Danny Crystal MD [address] [facility] [place] [address] PCP - General Internal Medicine 04/01/17 documented as of this encounter
--- OUTSIDE RECORDS SUMMARY | 2023-08-17 03:43 | External Medical Summary | Summary of Care ---
Author Name Unknown Organization [facility] Address [address] [place] [address] Phone [phone] Care Team Providers Care Director Of Retail Name Role Phone Danny Crystal MD Primary Care Provider + Reason for Referral * (Within 10 days (routine)) - Pending Review Specialty Diagnoses / Procedures Referred By Shanice womack Referred To Contact Radiology Diagnoses Renal cyst, right Procedures US RENAL Danny Crystal MD [address] [place] [address] Referral ID Status Reason Start Date Expiration Date V isits Requested Visits Authorized [id number] Pending Review 08/15/2023 999 999 * Evaluate & Treat - Unlimited Visits (Within 30 days (routine)) - Pending Review Specialty Diagnoses / Procedures Referred By Shanice womack Referred To Contact General Surgery - Breast Surgery / Surgical Oncology Diagnoses FH: breast cancer Danny Crystal MD [address] [place] [address] Referral ID Status Reason Start Date Expiration Date Visits Requested Visits Authorized [id number] Pending Review Specialty Services Required 08/15/2023 999 [id number] Question Answer Referral Priority Within 30 days (routine) Where should this appointment be scheduled? [facility] Is there suspicion that patient has Breast Cancer? No Does the patient have 1st degree relative with history of breast cancer? Yes * Evaluate & Treat - Unlimited Visits (Within 10 days (routine)) - Pending Review Specialty Diagnoses / Procedures Referred By Shanice womack Referred To Contact Orthopaedic Surgery / Orthopedics Diagnoses Acute pain of left knee Danny Crystal MD [address] [facility] [place] [address] Referral ID Status Reason Start Date Expiration Date Visits Requested Visits Authorized [id number] Pending Review Specialty Services Required 08/15/[phone] Question Answer Referral Priority Within 10 days (routine) Where should this appointment be scheduled? [facility] What body part is the patient being seen for? Thigh/Knee What condition is the patient being seen for? Sprain/Strain/Tear/Other Reason for Visit * Reason Comments Physical-Exam Yearly physical. Pt has headache that began yesterday and has been consistent. Pt brought copy of [employer] x ray record of left knee, knee has been swollen since visit on 07/06. Swelling occurs with increased walking. Pt was also at [facility] on 06/16 - ran into a wall and had CT of head done, CT was ok Encounter Details Date Type Department Care Team (Late st Contact Info) Description 08/15/2023 9:00 AM EDT Office Visit General Internal Medicine [employer] [address] [facility] [place] [address] Danny Crystal MD [address] [facility] [place] [address] Physical exam, annual*; Acute pain of left knee; HTN, goal below 140/90; Traumatic injury of head, initial encounter; Lupus (HCC); Sinus headache; FH: breast cancer; Renal cyst, right; Encounter for long-term (current) use of medications; History of malignant melanoma; Senile osteoporosis; History of carcinoma of bladder Allergies Active Allergy Reactions Criticality Noted Date [...] 0.5 % Ophthalmic Suspension (Lotemax) NEEDED 10/05/2020 Active Fluticasone Propionate 50 MCG/ACT Nasal [...] PAIN 270 Tablet 1 05/11/2023 5 Active Lisinopril 20 MG Oral Tablet (Prinivil)Indicatio ns:HTN, goal below 140/90 Take 1 Tablet by mouth in the morning. 90 Tablet 3 05/17/2023 Active methylPREDNISolone 4 MG Oral Tablet Therapy Pack (Medrol Dosepack) follow package directions 21 Tablet 1 04/11/2023 4 Discontinue d(Medicatio n List Clean Up) documented as of this encounter (statuses as [...] Date Smoking Tobacco: Never Smokeless Tobacco: Never Tobacco Cessation:Counseling Given: Not Answered Alcohol Use Standard Drinks/Week Comments No 0 [...] Sign Reading Time Taken Comments Blood Pressure 110/58 08/15/2023 8:51 AM EDT Pulse 91 08/15/2023 8:51 AM EDT Temperature 37.1 C (98.8 F) 08/15/2023 8:51 AM ED T Respiratory Rate - - Oxygen Saturation 96% 08/15/2023 8:51 AM EDT Inhaled Oxygen Concentration - - Weight 63.8 kg (140 lb 11.2 oz) 08/15/2023 8:51 AM EDT Height 169 cm (5' 6.54") 08/15/2023 8:51 AM EDT Body Mass Index 22.35 08/15/2023 8:51 AM EDT documented in this encounter Progress Notes * Danny Crystal MD - 08/15/2023 9:20 AM EDT Chief Complaint Patient presents with Physical-Exam Yearly physical. Pt has headache that began yesterday and has been consistent. Pt brought copy of [employer] x ray record of left knee, knee has been swollen since visit on 07/06. Swelling occurs with increased walking. Pt was also at [facility] ER on 06/16 - ran into a wall and had CT of head done, CT was ok SUBJECTIVE: Marissa Burgos is a 63 year old female with PMH as below who presents for physical. Feels well.Did run into a door end of May when in dark, had swelling, went to ER, had CT told ok and swelling resolved. Does c/o left knee pain/swelling x 1 month, went to [facility], had x-ray told ok, symptoms abated, then walked again for exercise and swelling/pain returned inside left knee, stopped walking, swelling better. No pain now. Had some sinus congestion, scratchy throat and headache yesterday, better now. Covid negative. Otherwise, Patient has no complaints, denies cp, sob, n/v/d, palpitations, edema, PND, urinary problems, bowel issues, no blood in stool or urine. Eating and drinking without issue, feels safe, denies abuse or feelings of depression, wears seatbelts. No SI, HI Patient Active Problem List Diagnosis Dermatofibroma History of malignant melanoma HTN, goal below 140/90 History of melanoma in situ History of esophageal stricture Renal cyst, right Basal cell carcinoma (BCC) of left ala nasi Lupus (HCC) History of gallstones Melanoma in situ of upper extremity, left (HCC) Mild mitral regurgitation Diastolic dysfunction Senile osteoporosis History of carcinoma of bladder Current Outpatient Medications Medication Sig Dispense Refill [...] MOUTH THREE TIMES A DAY NEEDED FOR [id number] Tablet 1 Lisinopril 20 MG Oral Tablet (Prinivil) Take 1 Tablet by mouth in the morning. 90 Tablet 3 No current facility-administered medications for this visit. Review of patient's allergies indicates: Allergen Reactions Environmental [Pollen] Health Maintenance Due Topic Date Due COVID-19 Vaccine () 02/12/2023 Depression Screening 08/14/2023 ROS: CONSTITUTIONAL: No change in weight, No weakness, and No fevers, sweats, or chills EYE: No recent significant change in vision, No eye pain, redness, discharge, and No diplopia EARS: No ear pain, No drainage, No tinnitus or vertigo, and No recent change in hearing PULMONARY: No cough, sputum, or hemoptysis, No wheezing, No rales, No shortness of breath, and No recent change in breathing CARDIOVASCULAR: No chest pain, No shortness of breath, No dyspnea on exertion, No orthopnea, No paroxysmal nocturnal dyspnea, No edema, No palpitations, and No syncope GASTROINTESTINAL: No abdominal pain, No change in bowel habits, No significant heartburn, No significant change in appetite, No nausea, vomiting, diarrhea, or constipation, No hematemesis, No blood in stools or black tarry stools, No abdominal bloating or early satiety, and No dysphagia ALL OTHER SYSTEMS NEGATIVE I reviewed social, PMH, PSH, and family history and updated where needed. 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 Tobacco Use Smoking status: Never Smokeless tobacco: Never Vaping Use Vaping status: Never Used Substance and Sexual Activity Alcohol use: No Drug use: No Sexual activity: Yes Partners: Male control/protection: Surgical Comment: w/ Vasectomy Other Topics Concern Service Not Asked Blood Transfusions Not Asked Caffeine Concern Not Asked Occupational Exposure Not Asked Hobby Hazards Not Asked Sleep Concern Not Asked Stress Concern Not Asked Weight Concern Not Asked Special Diet Not Asked Back Care Not Asked Exercise No Bike Helmet Not Asked Seat Belt Yes Self-Exams Yes Comment: breast Social History Narrative Not on file Social Determinants of Health Financial Resource Strain: Not on file Food Insecurity: No Food Insecurity (08/13/2022) Hunger Vital Sign Worried About Running Out of Food in the Last Year: Never true Ran Out of Food in the Last Year: Never true Transportation Needs: Not on file Social Connections: Unknown (08/13/2023) Social Connections How often do you feel lonely or isolated from those around you? (Adult - for ages 18 years and over): Not on file Housing Stability: Not on file Past Medical History: Diagnosis Date Benign neoplasm of colon 10/16/2010 polypectomy x 1,--adenomatous tissue int and ext hemorrhoids--repeat in 5 yrs Calculus of gallbladder without cholecystitis without obstruction 04/01/2017 Diastolic dysfunction 12/18/2020 Herpes simplex virus infection 1994 Diffuse Herpes, recurrent High risk for fracture due to osteoporosis by DEXA scan 04/18/2022 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 History of gallstones 11/11/2019 No symptoms HTN, goal below 140/90 10/09/2012 Liver hemangioma 04/01/2017 Lupus (HCC) 11/11/2019 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 Snyder BIOPSY OF BREAST, OPEN Left 1994 Benign BIOPSY OF BREAST, OPEN Right 1994 Benign BREAST SURGERY PROCEDURE NEC 1996 L breast lumpectomy - milk gland [facility] BREAST SURGERY PROCEDURE NEC 12/26/2002 right breast apsiration at [facility] DELIVERY 1993 Delivery Only COLONOSCOPY W/ BIOPSY (RECTUM) 10/16/2010 polypectomy x 1,--adenomatous tissue int and ext hemorrhoids--repeat in 5 yrs COLONOSCOPY, DIAGNOSTIC (RECTUM) 03/18/2014 adenomatous polyp, diverticulosis, repeat 3 yrs/COLONOSCOPY FLEXIBLE PROXIMAL DIAGNOSTIC performed by Rebeka Disla DO at ENDOSCOPY [facility] COLONOSCOPY, DIAGNOSTIC (RECTUM) 03/25/2017 hyperplastic polyp, repeat 5 yrs/COLONOSCOPY FLEXIBLE PROXIMAL DIAGNOSTIC performed by Rebeka Disla DO at ENDOSCOPY [facility] COLONOSCOPY, DIAGNOSTIC (RECTUM) 05/17/2022 hemorrhoids/COLONOSCOPY FLEXIBLE PROXIMAL DIAGNOSTIC performed by Rebeka Disla DO at ENDOSCOPY [facility] CT ABDOMEN WO IV AND W ORAL CONTRAST 12/27/2001 Neg for urolithiasis, incidental finding of gallstones CYSTOSCOPY 04/01/2017 Dr Stoddard CYSTOSCOPY 04/14/2018 done in office, Dr Stoddard CYSTOSCOPY 07/07/2018 done in office, Dr Stoddard CYSTOURETHROSCOPY W/BIOPSY N/A 07/12/2017 CYSTOURETHROSCOPY WITH BIOPSY performed by Giuliana Stoddard MD at OR [facility] DILATION AND CURETTAGE (D&C) Due to Miscarraige X 2 (1988 & 1992) EGD, FLEXIBLE, DIAGNOSTIC 07/31/2013 mild ring @ 40cm, normal bx/ESOPHAGOGASTRODUODENOSCOPY (EGD), FLEXIBLE, TRANSORAL, DIAGNOSTIC performed by Donovan Garcia MD at ENDOSCOPY [facility] INFORMATION 10/04/2009 Re-excision of skin lesions; left forearm & left mid triceps - Dr. Boggs MELANOMA AJCC STAGE 0 OR 1A DOCUMENTED 09/2009 left arm, Melanoma, in situ MISCELLANEOUS ORDER ([facility] ONLY) 1977 tonsilectomy REMOVAL OF APPENDIX 1976 Appendectomy TOTAL ABD HYSTERECTOMY W/WO REMOVAL OF TUBE(S) April 01, 2009 Dr. Mckoy XR IVP NEPHROTOMOGRAMS 08/11/1999 Normal except for small post-void residual. Family History Problem Relation Name Age of Onset Colon polyps Mother Stephanie Squamous cell carcinoma Mother Stephanie 82 Melanoma Mother Stephanie In situ dx late 70s Hypertension Mother Stephanie Breast Cancer Mother Stephanie 68 dx in 2009 Thyroid Disorder Mother Stephanie Colon polyps Father Daniel COPD Father Daniel Melanoma Father Daniel dx 40s In situ Hypertension Father Daniel Diabetes Father Daniel Melanoma Sister Giuliana In situ Colon polyps Brother Porter Melanoma Brother Porter In situ Other (Guzman's) Brother Porter Melanoma Brother Madi Colon polyps Brother Madi Rheum arthritis Grandmother (Paternal) Esophageal cancer Grandfather (Paternal) OBJECTIVE: PHYSICAL EXAM: BP 110/58 | Pulse 91 | Temp 37.1 C (98.8 F) (Tympanic) | Ht 1.69 m (5' 6.54") | Wt 63.8 kg (140lb 11.2 oz) | SpO2 96% | BMI 22.35 kg/m | BSA 1.73 m General: alert, healthy, and no distress Head: Normocephalic, No masses, lesions, tenderness or abnormalities Eye Exam: conjunctiva are pink and non-injected, sclera clear, TAYLOR Heart: regular rate & rhythm, no murmur, no gallops, PMI non-displaced, S-1 normal, and S-2 normal Lungs: normal respiratory rate and rhythm, lungs clear to auscultation Abdomen: abdomen soft, non-tender, normal bowel sounds, and no masses or organomegaly Extremities: no edema, no skin discoloration, no clubbing, no cyanosis, no pain to palpation left knee Neuro Exam: alert with fluent speech, gait normal Psych: normal affect, no flight of ideas or tangential thought, good eye contact, no pressured speech 4 er: THis is a 62 yo female who presents to the ER due to accidental head/face trauma. Obvious injury noted on exam. Patient non focal and reassuring neurologic exam. She was sent for CT head/face. These were reassuring. Patient had been applying ice already and swelling was improving. We discussed ice,otc meds for pain, activity, usual course of healing of a large facial contusion, concussive symptoms, symptoms to watch/return for, she verbalized understanding and was in agreement with the plan. ASSESSMENT: Z00.00 Physical exam, annual (primary encounter diagnosis) M25.562 Acute pain of left knee I10 HTN, goal below 140/90 S09.90XA Traumatic injury of head, initial encounter M32.9 Lupus (HCC) R51.9 Sinus headache Z80.3 FH: breast cancer N28.1 Renal cyst, right Z79.899 Encounter for long-term (current) use of medications Z85.820 History of malignant melanoma M81.0 Senile osteoporosis Z85.51 History of carcinoma of bladder PLAN: Physical exam, annual (Primary) Discussed exercise, seatbelts, skin and other hm Acute pain of left knee - ORTHOPAEDICS REFERRAL OP - LYME DISEASE ANTIBODY SCREEN WITH REFLEX TO CONFIRMATION; Future; Expected date: 08/15/2023 - CBC WITH WBC DIFFERENTIAL; Future; Expected date: 08/15/2023 Check labs [facility] for records, given persistent swelling, ask ortho aid HTN, goal below 140/90 - COMPREHENSIVE METABOLIC PANEL; Future; Expected date: 08/15/2023 - LIPID PANEL WITH DIRECT LDL IF TG IS HIGH; Future; Expected date: 08/15/2023 Cont lisinopril Traumatic injury of head, initial encounter Resolved Follow Lupus (HCC) Sees rheum Sinus headache Follow symptoms Will let me know if worsens/persistent FH: breast cancer - HIGH RISK BREAST CLINIC, BREAST SURGERY REFERRAL OP Renal cyst, right - US RENAL; Future; Expected date: 08/15/2023 Recheck u/s Sees urology for this and h/o bladder cancer Encounter for long-term (current) use of medications - IRON SCREEN, INCLUDING TIBC; Future; Expected date: 08/15/2023 - FERRITIN; Future; Expected date: 08/15/2023 History of malignant melanoma Sees derm Senile osteoporosis Sees hiroc History of carcinoma of bladder Sees urology Follow Up: Return in about 1 year (around 08/14/2024), or if symptoms worsen or fail to improve, forLabs Today. | For: Labs Today | Check-out note: [facility] - med rui Cyrstal MD documented in this encounter Nursing Notes * Alondra Nguyen MED ASSIST - 08/15/2023 8:56 AM EDT Chief Complaint Patient presents with Physical-Exam Yearly physical. Pt has headache that began yesterday and has been consistent. Pt brought copy of [facility] [employer] x ray record of left knee, knee has been swollen since visit on 07/06. Swelling occurs with increased walking. Pt was also at [facility] ER on 06/16 - ran into a wall and had CT of head done, CT was ok documented in this encounter Plan of Treatment Upcoming Encounters Date Type Department Care Team (Late st Contact Info) Description 08/16/2023 12:45 PM EDT Imaging Radiology [facility] [address] [facility] [place] [address] 08/21/2023 11:30 AM EDT Office Visit Orthopaedics [facility] [address] [facility] [place] [address] Millie Stout MD [address] [facility] [place] [address] 09/09/2023 3:30 PM EDT Procedure Only Urology, [facility] [address] [facility] [place] [address] Pepito Malhotra MD [address] [place] [address] 01/09/2024 1:00 PM EST Office Visit Dermatology [facility] [address] [place] [address] Shilpi Dobbs PA-C [address] [facility] [place] [phone] 04/15/2024 11:00 AM EST Office Visit Rheumatology [place] [address] [place] [address] Porter Sanchez MD [facility] [place] [address] 07/14/2024 1:00 PM EDT Office Visit General Internal Medicine [facility] [address] [place] [address] Danny Crystal MD [address] [place] [address] 07/17/2024 8:30 AM EDT Imaging Radiology [facility] [address] [facility], [place] [address] [facility] [place] [address] Pending Results Name Type Priority Associated Diagnoses [...] use of medications 08/15/2023 9:28 AM EDT Scheduled Orders Name Type Priority Associated Diagnoses Orde r Schedule COMPREHENSIVE METABOLIC PANEL Lab Routine HTN, goal below 140/90 Expected: 08/15/2023 (Approximate), Expires: 08/14/2024 LIPID PANEL WITH DIRECT LDL IF TG IS HIGH Lab Routine HTN, goal below 140/90 Expected: 08/15/2023, Expires: 08/14/2024 LYME DISEASE ANTIBODY SCREEN WITH REFLEX TO CONFIRMATION Lab Routine Acute pain of left knee Expected: 08/15/2023 (Approximate), Expires: 08/14/2024 US RENAL Medical Imaging Routine Renal cyst, right Expected: 08/15/2023, Expires: 09/13/2024 IRON SCREEN, INCLUDING TIBC Lab Routine Encounter for long-term (current) use of medications Expected: 08/15/2023 (Approximate), Expires: 08/14/2024 FERRITIN Lab Routine Encounter for long-term (current) use of medications Expected: 08/15/2023 (Approximate), Expires: 08/14/2024 Scheduled Procedures Name Priority Associated Diagnoses Date/Ti me COLONOSCOPY FLEXIBLE PROXIMA L DIAGNOSTIC Recall History of colon polyps Screen for colon cancer Scheduled Referrals Name Type Priority Associated Diagnoses Order Schedule ORTHOPAEDICS REFERRAL OP Referral Within 10 days (routine) Acute pain of left knee Ordered: 08/15/2023 HIGH RISK BREAST CLINIC, BREAST SURGERY REFERRAL OP Referral Within 30 days (routine) FH: breast cancer Ordered: 08/15/2023 Health Maintenance Due Date Last Done Comments [...] D LEVEL ONCE IN A LIFETIME-USE SMARTSET# [id number] Completed 04/11/2023, 04/18/2022, 01/18/2020, Additional history exists [...] as of this encounter Visit Diagnoses Diagnosis Physical exam, annual- Primary Routine general medical examination at a health care facility Acute pain of left knee HTN, goal below 140/90 Unspecified essential hypertension Traumatic injury of head, initial encounter Lupus (HCC) Systemic lupus erythematosus Sinus headache Headache FH: breast cancer Family history of malignant neoplasm of breast Renal cyst, right Unspecified congenital cystic kidney disease Encounter for long-term (current) use of medications Encounter for long-term (current) use of other medications History of malignant melanoma Personal history of malignant melanoma of skin Senile osteoporosis History of carcinoma of bladder Personal history of malignant neoplasm of bladder Screening mammogram for breast cancer documented in this encounter Advance Directives * Full Code (Latest Code Status on File) Date Activated Date Inactivated Comments 07/12/2017 8:19 AM 07/12/2017 3:32 PM This order r eflects the patients wishes and were consensually agreed upon. Care Teams Director Of Retail Relationship Specialty Start Date End Date Danny Crystal MD [address] [place] [address] PCP - General Internal Medicine 04/01/17 documented as of this encounter
--- OUTSIDE RECORDS SUMMARY | 2023-08-17 03:44 | External Medical Summary | Summary of Care ---
Author Name Unknown Organization [facility] Address [address] [facility] [place] [address] Phone [phone] Care Team Providers Care Logistics Analytics Manager Name Role Phone Danny Crystal MD Primary Care Provider + Reason for Visit * Reason Onset Date Comments Medication Pre-auth 04/11/2023 Reclast Encounter Details Date Type Department Care Team (Late st Contact Info) Description 04/11/2023 Telephone Rheumatology [facility] [address] [place] [address] Porter Sanchez MD [address] [employer] [place] [address] Medication Pre-auth (Reclast) Allergies Active Allergy Reactions Criticality Noted Date Comments Pollen 11/29/2014 documented as of this encounter (statuses as of 04/12/2023) Medications Medication Sig Dispensed Refills Start Date [...] for Rhinitis. 18.2 mL 0 08/09/2021 Active valACYclovir HCl 500 MG Oral Tablet (Valtrex)Indications :Herpes simplex virus infection take 1 tablet by mouth three times a day for 5 days if needed 30 Tablet 5 02/09/2022 Active Ibuprofen 600 MG Oral Tablet (Motrin)Indications: Systemic lupus erythematosus (HCC) TAKE ONE TABLET BY MOUTH THREE TIMES A DAY NEEDED FOR PAIN 270 Tablet 1 10/01/2022 10/01/2023 Active Triamcinolone Acetonide 0.1 % External Ointment (Aristocort)Indicati ons:Dermatitis Apply topically to affected area as needed (facial inflammation). Apply to affected Area twice a day as needed 15 g 2 01/10/2023 Active Lisinopril 20 MG Oral Tablet (Prinivil)Indication s:HTN, goal below 140/90 TAKE ONE TABLET BY MOUTH EVERY MORNING 90 Tablet 1 02/11/2023 Active methylPREDNISolone 4 MG Oral Tablet Therapy Pack (Medrol Dosepack) follow package directions 21 Tablet 1 04/11/2023 Active documented as of this encounter (statuses as of 04/12/2023) Active Problems Problem Noted Date Diagnosed Date [...] as of this encounter (statuses as of 04/12/2023) Resolved Problems Problem Noted Date Diagnosed Date [...] 08/31/2009 Edema 08/03/2004 09/15/2018 Calculus of gallbladder 12/28/2001/06/2017 AT RISK FOR OSTEOPOROSIS 09/14/200006/2017 SYST LUPUS ERYTHEMATOSIS Herpes simplex virus infection 09/15/2018 Encounter for long-term (cur rent) use of medications 04/01/2017 Overview: ICD-10 update of inactive term documented as of this encounter (statuses as of 04/12/2023) Immunizations Name Administration Dates Next Due COVID-19 mRNA, LNP-s, No Pre serve, 2-Dose Series (Moderna) 06/06/2021,04/22/2020,03/25/2020 COVID-19, mRNA, LNP-s, PF, B ooster, 100mcg/0.5mg (Moderna) 11/19/2021,06/05/2021,12/26/2020 Covid-19, Mrna, Lnp-s, Pf, B ivalent, 50 Mcg, IM, 12 yrs and above (Moderna) 12/18/2022,08/13/2022 PPD 07/17/2010,06/03/2007,05/16/2004 Seasonal Influenza Virus Vac cine, Unspecified Formulation 11/09/2022,11/11/2019 Seasonal Influenza, PF, 6 M & above, IM , (FluLaval or Fluzone) 11/09/2022,11/02/2021,11/14/2020,11/10,11/03/2018,12/17/2017,12/18/2016 Seasonal Influenza, Quadriva lent, No Preserve, IM 12/13/2015,11/29/2014 Seasonal Influenza, Split, I IV3, With Preserve, Inj 11/19/2013,12/01/2012,11/10/2011,12/28,12/13/2009,11/17/2008,12/12/2007 ,01/13/2007,01/08/2006,01/11/2005 TD - Tetanus/Diptheria (ADULT) 05/16/2004 TD, Preservative Free 05/16/2004 TDAP (age 10 and older)(Boostrix) 08/13/2022,07/2012 [...] encounter Miscellaneous Notes * Telephone Encounter - Janet Hermosillo RN - 04/11/2023 2:24 PM EST [place] plan for reclast built and routed for signature. Waiting for auth. Labs drawn today 04/12- in process. * Telephone Encounter - Porter Sanchez MD - 04/11/2023 12:28 PM EST Can we look into coverage for Reclast. This will be her 2nd dose. Her last dose was May [id number]. documented in this encounter Plan of Treatment Upcoming Encounters Date Type Department Care Team (Late st Contact Info) Description 06/20/2023 9:30 AM EDT Office Visit Dermatology [facility] [address] [place] [address] Giuliana Bedolla MD 200 [facility] [place] [address] 08/15/2023 9:00 AM EDT Office Visit General Internal Medicine [facility] [address] [place] [address] Danny Crystal MD [address] [place] [address] 09/09/2023 3:30 PM EDT Procedure Only Urology, [facility] 132 [facility] [place] [address] Pepito Malhotra MD 27 [facility] 270 [place] [address] 04/15/2024 11:00 AM EST Office Visit Rheumatology [facility] [address] [place] [address] Porter Sanchez MD [address] [place] [address] Scheduled Procedures Name Priority Associated Diagnoses Date/Ti [...] D LEVEL ONCE IN A LIFETIME-USE SMARTSET# [id number] Completed 04/11/2023, 04/18/2022, 01/18/2020, Additional history exists [...] Senile osteoporosis- Primary documented in this encounter Advance Directives Latest Code Status on File Code Status Date Activated Date Inactivated Comments Full Code 07/12/2017 8:19 AM 07/12/2017 3:32 PM This order reflects the patients wishes and were consensually agreed upon. Care Teams Logistics Analytics Manager Relationship Specialty Start Date End Date Danny Crystal MD 200 [place] [address] PCP - General Internal Medicine 04/01/17 documented as of this encounter
--- OUTSIDE RECORDS SUMMARY | 2023-08-17 03:44 | External Medical Summary | Summary of Care ---
Author Name Unknown Organization [facility] Address [address] [facility] [place] [address] Phone [phone] Care Team Providers Care Creative Assistant Name Role Phone Danny Crystal MD Primary Care Provider + Encounter Details Date Type Department Care Team (Late st Contact Info) Description 04/12/2023 Orders Only Rheumatology [place], Brenda [address] [place] [address] Porter Sanchez MD [address] [place] [id number] signed Allergies Active Allergy Reactions Criticality Noted Date [...] as of this encounter Progress Notes * Porter Sanchez MD - 04/12/2023 9:42 AM EST signed documented in this encounter Plan of Treatment Upcoming Encounters Date Type Department Care Team (Late st Contact Info) Description 06/20/2023 9:30 AM EDT Office Visit Dermatology [facility] 200 [place] [place] [address] Giuliana Bedolla MD 200 [facility] [place] [address] 08/15/2023 9:00 AM EDT Office Visit General Internal Medicine [facility] 200 [facility] [place] [address] Danny Crystal MD 200 [place] [address] 09/09/2023 3:30 PM EDT Procedure Only Urology, [facility] 132 [facility] [place] [address] Pepito Malhotra MD 27 [facility] 270 [place] [address] 04/15/2024 11:00 AM EST Office Visit Rheumatology [place] [address] [employer] [place], [place] [address] Porter Sanchez MD [facility] [place] [address] Scheduled Procedures Name Priority Associated Diagnoses Date/Ti [...] D LEVEL ONCE IN A LIFETIME-USE SMARTSET# [id number] Completed 04/11/2023, 04/18/2022, 01/18/2020, Additional history exists [...] filedocumented as of this encounter Advance Directives Latest Code Status on File Code Status Date Activated Date Inactivated Comments Full Code 07/12/2017 8:19 AM 07/12/2017 3:32 PM This order reflects the patients wishes and were consensually agreed upon. Care Teams Creative Assistant Relationship Specialty Start Date End Date Danny Crystal MD 200 [place] [address] PCP - General Internal Medicine 04/01/17 documented as of this encounter
--- OUTSIDE RECORDS SUMMARY | 2023-08-17 03:44 | External Medical Summary | Summary of Care ---
Author Name Unknown Organization [facility] Address [address] [place] [address] Phone [phone] Care Team Providers Care Driver Guard Name Role Phone Danny Crystal MD Primary Care Provider + Reason for Visit * Reason Onset Date Comments Order Request 05/07/2023 Mammogram Screen ing Order Encounter Details Date Type Department Care Team (Late st Contact Info) Description 05/07/2023 Telephone Radiology, [facility] [address] [place] [address] Requisition, External Radiology [address] [place] [address] Order Request (Mammogram Screening Order) Allergies Active Allergy Reactions Criticality Noted Date Comments Pollen 11/29/2014 documented as of this encounter (statuses as of 05/07/2023) Medications Medication Sig Dispensed Refills Start Date [...] for Rhinitis. 18.2 mL 0 08/09/2021 Active Ibuprofen 600 MG Oral Tablet (Motrin)Indications: [...] if needed 30 Tablet 5 05/02/2023 Active documented as of this encounter (statuses as of 05/07/2023) Active Problems Problem Noted Date Diagnosed Date [...] as of this encounter (statuses as of 05/07/2023) Resolved Problems Problem Noted Date Diagnosed Date [...] as of this encounter (statuses as of 05/07/2023) Immunizations Name Administration Dates Next Due COVID-19 [...] encounter Miscellaneous Notes * Telephone Encounter - Alondra Nguyen MED ASSIST - 05/07/2023 11:55 AM EDT Mammogram pended * Telephone Encounter - Yin Paris OSA - 05/07/2023 10:57 AM EDT May we please have an order placed for a screening mammogram at your earliest convenience. Pt reports no issues. Thank you documented in this encounter Plan of Treatment Upcoming Encounters Date Type Department Care Team (Late st Contact Info) Description 06/20/2023 9:30 AM EDT Office Visit Dermatology [facility] 200 [facility] [place] [address] Giuliana Bedolla MD 200 [facility] [place] [address] 07/08/2023 9:45 AM EDT Imaging Radiology [address] [facility] [place] [address] 08/15/2023 9:00 AM EDT Office Visit General Internal Medicine [facility] 200 [facility] [place] [address] Danny Crystal MD 200 [facility] [place] [address] 09/09/2023 3:30 PM EDT Procedure Only Urology, [facility] 132 [facility] [place] [address] Pepito Malhotra MD 27 [facility] 270 [place] [address] 04/15/2024 11:00 AM EST Office Visit Rheumatology [facility] [address] [employer] [place] [address] Porter Sanchez MD [address] [place] [address] Scheduled Orders Name Type Priority Associated Diagnoses Orde r Schedule MAMMOGRAM SCREENING ZANDER BILATERAL Medical Imaging Routine Encounter for screening mammogram for breast cancer Expected: 07/07/2023, Expires: 06/06/2024 Scheduled Procedures Name Priority Associated Diagnoses Date/Ti [...] D LEVEL ONCE IN A LIFETIME-USE SMARTSET# [id number] Completed 04/11/2023, 04/18/2022, 01/18/2020, Additional history exists [...] as of this encounter Visit Diagnoses Diagnosis Encounter for screening mammogram for breast cancer- Primary documented in this encounter Advance Directives Latest Code Status on File Code Status Date Activated Date Inactivated Comments Full Code 07/12/2017 8:19 AM 07/12/2017 3:32 PM This order reflects the patients wishes and were consensually agreed upon. Care Teams Driver Guard Relationship Specialty Start Date End Date Danny Crystal MD 200 [place] [address] PCP - General Internal Medicine 04/01/17 documented as of this encounter
--- OUTSIDE RECORDS SUMMARY | 2023-08-17 03:44 | External Medical Summary | Summary of Care ---
Author Name Unknown Organization [facility] Address [address] [facility] [place] [address] Phone [phone] Care Team Providers Care Procedure Rn Name Role Phone Danny Crystal MD Primary Care Provider + Reason for Visit * Reason Comments Infusion Reclast * Episode Based Medications (Routine) - Authorized Specialty Diagnoses / Procedures Referred By Contradha t Referred To Contact Diagnoses Senile osteoporosis Procedures [place] ZOLEDRONIC ACID 1MG Porter Sanchez MD [address] [facility] [place] [address] Anc Hem/Onc [address] [place] [address] Referral ID Status Reason Start Date Expiration Date V isits Requested Visits Authorized [id number] Authorized 04/11/2023 04/11/2024 999 [id number] Encounter Details Date Type Department Care Team (Latest Contact Info) Description 05/02/2023 9:00 AM EST Hem/Onc Treatment Hematology/Oncology Treatment, [address] [place] [address] Maria G, Chair 6 Hem On[address] [place] [address] Senile osteoporosis* Allergies Active Allergy Reactions Criticality Noted Date Comments Pollen 11/29/2014 documented as of this encounter (statuses as of 05/02/2023) Medications Medication Sig Dispensed Refills Start Date [...] as of this encounter (statuses as of 05/02/2023) Active Problems Problem Noted Date Diagnosed Date [...] as of this encounter (statuses as of 05/02/2023) Resolved Problems Problem Noted Date Diagnosed Date [...] as of this encounter (statuses as of 05/02/2023) Immunizations Name Administration Dates Next Due COVID-19 [...] in this encounter Nursing Notes * Terra Dominguez LPN - 05/02/2023 9:24 AM EST 0915: Pt [...] 9:30 AM EDT Office Visit Dermatology [facility] 200 [place] [address] Giuliana Bedolla MD [address] [place] [address] 08/15/2023 9:00 AM EDT Office Visit General Internal Medicine [facility] [address] [place] [address] Danny Crystal MD [address] [place] [address] 09/09/2023 3:30 PM EDT Procedure Only Urology, [facility] 132 [facility] [place] [address] Pepito Malhotra MD [address] [place] 270 [facility] [place] [address] 04/15/2024 11:00 AM EST Office Visit Rheumatology [place] [address] [employer] [place], [place] [address] Porter Sanchez MD [address] [place] [address] Scheduled Procedures Name Priority Associated Diagnoses Date/Ti [...] D LEVEL ONCE IN A LIFETIME-USE SMARTSET# [id number] Completed 04/11/2023, 04/18/2022, 01/18/2020, Additional history exists [...] Primary documented in this encounter Administered Medications Active Administered Medications - up to 3 most recent administrations Medication Order MAR Action Action Date Dose Rate Site diphenhydrAMINE (Benadryl) inj 50 mg 50 mg, IV Push, ONCE PRN Other, Hypersensitivity Reaction, Starting on Sat05/02/23 at 0903, Until Sat05/03/23 at 0902, For 24 hours EPINEPHrine 1 MG/ML inj 0.3 mg 0.3 mg, Intramuscular, ONCE PRN Other, Hypersensitivity Reaction or Anaphylaxis, Starting on Sat05/02/23 at 0903, Until Sat05/03/23 at 0902, For 24 hours hEParin 100 UNIT/ML Lock Flush inj 500 Units 500 Units (5 mL), IV Lock, PRN Other, IV Flush, Starting on Sat05/02/23 at 0903, Until Sat05/03/23 at 0902, For 24 hours, Do not flush if lock, PICC, or central line not in place; IV infusing or unable to flush. Hydrocortisone Sod Suc (PF) (Solu-Cortef) inj 100 mg 100 mg, IV Push, ONCE PRN Other, Hypersensitivity Reaction, Starting on Sat05/02/23 at 0903, Until Sat05/03/23 at 0902, For 24 hours NSS infusion 500 mL, Intravenous, at 50 mL/hr, CONTINUOUS, Starting on Sat05/02/23 at 1015, Until Sat05/02/23 at 2013 Start Infusion 05/02/2023 9:17 AM EST 500 mL 50 mL/hr oxygen GAS Inhalation, OXYGEN, First dose on Sat05/02/23 at 0945, Until Discontinued, Device/Managed by: Low Flow Device, Goal SPO2 (%): 91-95, Starting Device: Nasal Cannula, Initial Flow Rate (LPM): 2, Lowest Support: Nasal Cannula: Flow 0-6 LPM. Titrate up/down by 1 LPM., Higher Support: Non-Rebreather (NRB) Mask: Minimum of 10 LPM. Titrate to maintain bag inflation., Titration Interval: Q2 minutes and as needed., Notify Provider: For sudden DECREASE in resting SPO2 to less than 85% and when escalating delivery device., Wean patient off Oxygen when the oxygen saturation is greater than or equal to 93% sodium chloride 0.9 % flush central line 10 mL 10 mL, IV Push, PRN Other, IV Flush, Starting on Sat05/02/23 at 0903, Until Sat05/03/23 at 0902, For 24 hours, Do not flush if lock, PICC, or central line not in place; IV infusing or unable to flush. Inactive Administered Medications - up to 3 most recent administrations Medication Order MAR Action Action Date Dose Rate Site Zoledronic Acid (Reclast) 5 mg in 100 [...] and were consensually agreed upon. Care Teams Procedure Rn Relationship Specialty Start Date End Date Danny Crystal MD 200 [facility] [place] [address] PCP - General Internal Medicine 04/01/17 documented as of this encounter
--- OUTSIDE RECORDS SUMMARY | 2023-08-17 03:44 | External Medical Summary | Summary of Care ---
Author Name Unknown Organization [facility] Address [address] [facility] [place] [address] Phone [phone] Care Team Providers Care Liquid Sugar Melter Name Role Phone Danny Terrell MD Primary Care Provider + Reason for Visit * Reason Onset Date Comments Medication Refill 05/02/2023 Encounter Details Date Type Department Care Team (Late st Contact Info) Description 05/02/2023 Refill General Internal Medicine [facility] [place] [address] [place] [address] Danny Terrell MD [address] [facility] [place] [address] Herpes simplex virus infection Allergies Active Allergy Reactions Criticality Noted Date [...] 08/09/2021 Active Ibuprofen 600 MG Oral Tablet (Motrin)Indications :Systemic lupus erythematosus (HCC) TAKE ONE TABLET BY MOUTH THREE TIMES A DAY NEEDED FOR PAIN 270 Tablet 1 10/01/2022 4 Active Triamcinolone Acetonide 0.1 % External Ointment [...] if needed 30 Tablet 5 05/02/2023 Active valACYclovir HCl 500 MG Oral Tablet (Valtrex)Indication s:Herpes simplex virus infection take 1 tablet by mouth three times a day for 5 days if needed 30 Tablet 5 02/09/2022 4 Discontinue d(Refill) documented as of this [...] encounter Miscellaneous Notes * Telephone Encounter - Yobany Villalpando RPh - 05/02/2023 7:30 PM ESTSigned Prescriptions: Disp Refills valACYclovir HCl 500 MG Oral Tablet (Valtr*30 Tab*5 Sig: take 1 tablet by mouth three times a day for 5 days if neededAuthorizing Provider: DANNY TERRELL User: YOBANY VILLALPANDO ----- documented in this encounter Plan of Treatment Upcoming Encounters Date Type Department Care Team (Late st Contact Info) Description 06/20/2023 9:30 AM EDT Office Visit Dermatology [facility] [address] [place] [address] Giuliana Bedolla MD [address] [place] [address] 08/15/2023 9:00 AM EDT Office Visit General Internal Medicine [facility] [address] [place] [address] Danny Terrell MD [address] [place] [address] 09/09/2023 3:30 PM EDT Procedure Only Urology, [facility] 132 [facility] [place] [address] Pepito Malhotra MD 27 [facility] [place] [address] [place] [address] 04/15/2024 11:00 AM EST Office Visit Rheumatology [place] [address]90970 [employer] [place] [address] Porter Sanchez MD [address] [place] [address] Scheduled Procedures Name Priority Associated Diagnoses Date/Ti [...] D LEVEL ONCE IN A LIFETIME-USE SMARTSET# [id number] Completed 04/11/2023, 04/18/2022, 01/18/2020, Additional history exists [...] as of this encounter Visit Diagnoses Diagnosis Herpes simplex virus infection Herpes simplex without mention of complication documented in this encounter Advance Directives Latest Code Status on File Code Status Date Activated Date Inactivated Comments Full Code 07/12/2017 8:19 AM 07/12/2017 3:32 PM This order reflects the patients wishes and were consensually agreed upon. Care Teams Liquid Sugar Melter Relationship Specialty Start Date End Date Danny Terrell MD 200 [place] [address] PCP - General Internal Medicine 04/01/17 documented as of this encounter
--- OUTSIDE RECORDS SUMMARY | 2023-08-17 03:44 | External Medical Summary | Summary of Care ---
Author Name Unknown Organization [facility] Address [address] [facility] [place] [address] Phone [phone] Care Team Providers Care Security Tech Name Role Phone Danny Crystal MD Primary Care Provider + Reason for Visit * Reason Onset Date Comments Appointment 04/17/2023 Encounter Details Date Type Department Care Team (Late st Contact Info) Description 04/17/2023 Telephone Rheumatology [facility] [address] [employer] [place] [address] Porter Sanchez MD [address] [place] [id number] Appointment Allergies Active Allergy Reactions Criticality Noted Date Comments Pollen 11/29/2014 documented as of this encounter (statuses as of 04/17/2023) Medications Medication Sig Dispensed Refills Start Date [...] as of this encounter (statuses as of 04/17/2023) Active Problems Problem Noted Date Diagnosed Date [...] as of this encounter (statuses as of 04/17/2023) Resolved Problems Problem Noted Date Diagnosed Date [...] as of this encounter (statuses as of 04/17/2023) Immunizations Name Administration Dates Next Due COVID-19 [...] encounter Miscellaneous Notes * Telephone Encounter - Liseth Horner OSA - 04/17/2023 10:13 AM EST Pt transferred to dept to schedule Reclast infusions documented in this encounter Plan of Treatment Upcoming Encounters Date Type Department Care Team (Late st Contact Info) Description 05/02/2023 9:00 AM EST Hem/Onc Treatment Hematology/Oncology Treatment, [place] [address] [facility] [place] [id number] Maria G, Chair 6 Hem On[address] [place] [address] 06/20/2023 9:30 AM EDT Office Visit Dermatology [facility] 200 [facility] [place] [address] Giuliana Bedolla MD [address] [place] [address] [place] [address] 08/15/2023 9:00 AM EDT Office Visit General Internal Medicine [address] [place] [address] Danny Crystal MD 200 [place] [address] 09/09/2023 3:30 PM EDT Procedure Only Urology, [facility] 132 [facility] [place] [address] Pepito Malhotra MD 27 [facility] 270 [place] [address] 04/15/2024 11:00 AM EST Office Visit Rheumatology [place] 592870 [facility] [place] [address] Porter Sanchez MD [address] [facility] [place] [address] Scheduled Procedures Name Priority Associated Diagnoses Date/Ti [...] D LEVEL ONCE IN A LIFETIME-USE SMARTSET# [id number] Completed 04/11/2023, 04/18/2022, 01/18/2020, Additional history exists [...] and were consensually agreed upon. Care Teams Security Tech Relationship Specialty Start Date End Date Danny Crystal MD 200 [place] [address] PCP - General Internal Medicine 04/01/17 documented as of this encounter
--- OUTSIDE RECORDS SUMMARY | 2023-08-17 03:44 | External Medical Summary | Summary of Care ---
Author Name Unknown Organization [facility] Address [address] [facility] [place] [address] Phone [phone] Care Team Providers Care Radio Mechanic Name Role Phone Danny Crystal MD Primary Care Provider + Reason for Visit * Reason Onset Date Comments Medication Pre-auth 04/11/2023 Reclast Encounter Details Date Type Department Care Team (Late st Contact Info) Description 04/11/2023 Telephone Rheumatology [facility] [address] [place] [address] Porter Sanchez MD [address] [place] [address] Medication Pre-auth (Reclast) Allergies Active Allergy Reactions Criticality Noted Date Comments Pollen 11/29/2014 documented as of this encounter (statuses as of 04/16/2023) Medications Medication Sig Dispensed Refills Start Date [...] as of this encounter (statuses as of 04/16/2023) Active Problems Problem Noted Date Diagnosed Date [...] as of this encounter (statuses as of 04/16/2023) Resolved Problems Problem Noted Date Diagnosed Date [...] as of this encounter (statuses as of 04/16/2023) Immunizations Name Administration Dates Next Due COVID-19 [...] Telephone Encounter - Janet Hermosillo RN - 04/16/2023 2:57 PM EST Referral entered. Scheduling: please call patient to schedule 1 hour appt "reclast" (Dr Porter Sanchez) for 05/03/23 or later date. Thanks! * Telephone Encounter - Janet Hermosillo RN - 04/11/2023 2:24 PM EST [place] plan for reclast built and routed for [...] 9:30 AM EDT Office Visit Dermatology [facility] [address] [facility] [address] [place], [place] [address] Giuliana Bedolla MD 200 [facility] [place] [address] 08/15/2023 9:00 AM EDT Office Visit General Internal Medicine [facility] [place] [address] [place] [address] Danny Crystal MD 200 [facility] [place] [address] 09/09/2023 3:30 PM EDT Procedure [facility] [address] [place] [address] Pepito Malhotra MD [address] [place] [address] [place] [address] 04/15/2024 11:00 AM EST Office Visit Rheumatology [facility] [address] [place] [address] Porter Sanchez MD [address] [place] [address] Scheduled Procedures Name Priority Associated Diagnoses Date/Ti [...] D LEVEL ONCE IN A LIFETIME-USE SMARTSET# [id number] Completed 04/11/2023, 04/18/2022, 01/18/2020, Additional history exists [...] and were consensually agreed upon. Care Teams Radio Mechanic Relationship Specialty Start Date End Date Danny Crystal MD 200 [place] [address] PCP - General Internal Medicine 04/01/17 documented as of this encounter
--- OUTSIDE RECORDS SUMMARY | 2023-08-17 03:44 | External Medical Summary | Summary of Care ---
Author Name Unknown Organization [facility] Address [address] [place] [address] Phone [phone] Care Team Providers Care Marketing Communication Manager Name Role Phone Danny Crystal MD Primary Care Provider + Reason for Visit * Reason Onset Date Comments Appointment 04/12/2023 LMOM to r/s appt with Dr. Stoddard. Encounter Details Date Type Department Care Team ([facility] Contact Info) Description 04/12/2023 Telephone [address] [address] Giuliana Stoddard MD [address] [place] [address] Appointment (LMOM to r/s 07-04-23 appt with ... Allergies Active Allergy Reactions Criticality Noted Date [...] encounter Miscellaneous Notes * Telephone Encounter - [place] OSA - 04/12/2023 8:53 AM EST LMOM to r/s 07-04-[address] Stoddard. documented in this encounter Plan of Treatment Upcoming Encounters Date Type Department Care Team (Late st Contact Info) Description 06/20/2023 9:30 AM EDT Office Visit Dermatology [facility] [address] [facility] [place] [address] Giuliana Bedolla MD 200 [facility] [place] [address] 08/15/2023 9:00 AM EDT Office Visit General Internal Medicine [facility] [address] [facility] [place] [address] Danny Crystal MD 200 [facility] [place] [address] 04/15/2024 11:00 AM EST Office Visit Rheumatology [place] [address] [facility] [place] [address] Porter Sanchez MD [facility] [place] [address] Scheduled Procedures Name Priority Associated Diagnoses Date/Ti [...] D LEVEL ONCE IN A LIFETIME-USE SMARTSET# [id number] Completed 04/11/2023, 04/18/2022, 01/18/2020, Additional history exists [...] and were consensually agreed upon. Care Teams Marketing Communication Manager Relationship Specialty Start Date End Date Danny Crystal MD [address] [place] [address] PCP - General Internal Medicine 04/01/17 documented as of this encounter
--- OUTSIDE RECORDS SUMMARY | 2023-08-17 03:44 | External Medical Summary | Summary of Care ---
Author Name Unknown Organization [facility] Address [address] [facility] [place] [address] Phone [phone] Care Team Providers Care Mud Tank Operator Name Role Phone Danny Crystal MD Primary Care Provider + Reason for Visit * Reason Onset Date Comments Medication Pre-auth 04/11/2023 Reclast Encounter Details Date Type Department Care Team (Late st Contact Info) Description 04/11/2023 Telephone Rheumatology [facility] [address] [place] [address] Porter Sanchez MD [address] [place] [address] Medication Pre-auth (Reclast) Allergies Active Allergy [...] encounter Miscellaneous Notes * Telephone Encounter - Giuliana Whitley RN - 04/17/2023 10:18 AM EST Appointment scheduled 05/01 with patient * Telephone Encounter - Giuliana Whitley RN - 04/17/2023 9:46 AM EST miLibris message sent to patient to schedule reclast infusion. * Telephone Encounter - Janet Hermosillo RN - 04/16/2023 2:57 PM EST Referral entered. Scheduling: please call patient to schedule 1 hour appt "reclast" (Dr Porter Sanchez) for 05/03/23 or later date. Thanks! * Telephone Encounter - Janet Hermosillo RN - 04/11/2023 2:24 PM EST [place] plan for reclast built and routed for [...] 9:00 AM EST Hem/Onc Treatment Hematology/Oncology Treatment, [place] [address] [place], [place] [address] Maria G, Chair [address] Hem Onc [address] [place] [address] 06/20/2023 9:30 AM EDT Office Visit Dermatology [facility] [place] 200 [facility] [place] [address] Giuliana Bedolla MD 200 [place] [place] [address] 08/15/2023 9:00 AM EDT Office Visit General Internal Medicine [facility] 200 [place] [place] [address] Danny Crystal MD 200 [facility] [place] [address] 09/09/2023 3:30 PM EDT Procedure Only Urology, [facility] 132 [facility] [place] [address] Pepito Malhotra MD [address] [place] [address] [place] [address] 04/15/2024 11:00 AM EST Office Visit Rheumatology [place] [address] [address] [place] [address] Porter Sanchez MD [facility] [place] [address] Scheduled Procedures Name Priority Associated Diagnoses Date/Ti [...] D LEVEL ONCE IN A LIFETIME-USE SMARTSET# [id number] Completed 04/11/2023, 04/18/2022, 01/18/2020, Additional history exists [...] and were consensually agreed upon. Care Teams Mud Tank Operator Relationship Specialty Start Date End Date Danny Crystal MD 200 [facility] [address] PCP - General Internal Medicine 04/01/17 documented as of this encounter
--- OUTSIDE RECORDS SUMMARY | 2023-08-17 03:44 | External Medical Summary | Summary of Care ---
Author Name Unknown Organization [facility] Address [address] [facility] [place] [address] Phone [phone] Care Team Providers Care Drone Operator Name Role Phone Danny Crystal MD Primary Care Provider + Reason for Visit * Reason Onset Date Comments Medication Pre-auth 04/11/2023 Reclast Encounter Details Date Type Department Care Team (Late st Contact Info) Description 04/11/2023 Telephone Rheumatology [facility] [address] [place] [address] Porter Sanchez MD [address] [place] [address] Medication Pre-auth (Reclast) Allergies Active Allergy [...] Whitley RN - 04/17/2023 9:46 AM EST My G message sent to patient to schedule reclast infusion. * Telephone Encounter - Janet Hermosillo RN - 04/16/2023 2:57 PM EST Referral entered. Scheduling: please call patient to schedule 1 hour appt "reclast" (Dr Porter Sanchez) for 05/03/23 or later date. Thanks! * Telephone Encounter - Janet Hermosillo RN - 04/11/2023 2:24 PM EST [place] plan for reclast built and routed for [...] 06/20/2023 9:30 AM EDT Office Visit Dermatology [facility] [place] [address] [place], [place] [address] Giuliana Bedolla MD 200 [facility] [place], [place] [address] 08/15/2023 9:00 AM EDT Office Visit General Internal Medicine [facility] 200 [facility] [place] [address] Danny Crystal MD 200 [facility] [place] [address] 09/09/2023 3:30 PM EDT Procedure Only Urology, [facility] [address] [place] [address] Pepito Malhotra MD [address] [place] [address] [place] [address] 04/15/2024 11:00 AM EST Office Visit Rheumatology [facility] [address] [place] [address] Porter Sanchez MD [address] [place] [address] Scheduled Procedures Name Priority Associated Diagnoses Date/Ti [...] D LEVEL ONCE IN A LIFETIME-USE SMARTSET# [id number] Completed 04/11/2023, 04/18/2022, 01/18/2020, Additional history exists [...] and were consensually agreed upon. Care Teams Drone Operator Relationship Specialty Start Date End Date Danny Crystal MD 200 [place] [address] PCP - General Internal Medicine 04/01/17 documented as of this encounter
--- OUTSIDE RECORDS SUMMARY | 2023-08-17 03:45 | External Medical Summary ---
Author Name Unknown Address Unknown Organization K01:[facility] [place] [address] [place] [address] Laboratory Report Ordering Provider Test Date Status TIMO LARA 04/11/2023 11:41:05 Final Observation Date Value Abnormality Reference (Units ) Status Complement C3c [Mass/volume] in Serum or Plasma 04/11/2023 11:41:05 119 90-180 (mg/dL) Final Performing Location [facility] - [address] [place] [address]
--- OUTSIDE RECORDS SUMMARY | 2023-08-17 03:45 | External Medical Summary ---
Author Name Unknown Address Unknown Organization K01:[facility] [place] - [address] [place] [address] Laboratory Report Ordering Provider Test Date Status TIMO LARA 04/11/2023 11:41:05 Final Deficient: <20 ng/mL
Ins ufficient: 20-29 ng/mL
Recommended/Optimum:30-50 ng/mL

Vitamin D intoxication is rare. If suspicious of Vitamin D toxicity, evaluation of serum Calcium and PTH is recommended. Observation Date Value Abnormality Reference (Units ) Status 25-OH Vitamin D total 04/11/2023 11:41:05 32 >19 (ng/mL) Final Performing Location LABORATORY C - [address] [place] [address]
--- OUTSIDE RECORDS SUMMARY | 2023-08-17 03:45 | External Medical Summary ---
Author Name Unknown Address Unknown Organization K0G:LABORATORY [facility] - [address] [place] [address] Laboratory Report Ordering Provider Test Date Status TIMO LARA 04/11/2023 11:41:05 Final Observation Date Value Abnormality Reference (Units ) Status BUN 04/11/2023 11:41:05 15 6-20 (mg/dL) Final Creatinine 04/11/2023 11:41:05 0.7 0.5-1.0 (mg/dL) Final Glomerular filtration rate/1.73 sq M.predicted [Volume Rate/Area] in Serum, Plasma or Blood by Creatinine-based formula (CKD-EPI) 04/11/2023 11:41:05 >90 >=60 (mL/min) Final eGFR is calculated based on the CKD-EPI 2020 equation SODIUM 04/11/2023 11:41:05 142 135-146 (m mol/L) Final Potassium 04/11/2023 11:41:05 4.5 3.5-5.1 (m mol/L) Final Cl 04/11/2023 11:41:05 103 98-107 (mm ol/L) Final CO2 04/11/2023 11:41:05 27 22-32 (mmo l/L) Final Anion gap 04/11/2023 11:41:05 12 7-15 (mmol /L) Final Glucose 04/11/2023 11:41:05 70 70-120 (mg /dL) Final Calcium 04/11/2023 11:41:05 9.8 8.4-10.2 ( mg/dL) Final Performing Location LABORATORY [facility] 57-[address] 0 - [address] [place] [address]
--- OUTSIDE RECORDS SUMMARY | 2023-08-17 03:45 | External Medical Summary | Summary of Care ---
Author Name Unknown Organization [facility] Address [address] [facility] [place] [address] Phone [phone] Care Team Providers Care Lens Maker Name Role Phone Danny Crystal MD Primary Care Provider + Reason for Visit * Reason Onset Date Comments Medication Pre-auth 04/11/2023 Encounter Details Date Type Department Care Team (Late st Contact Info) Description 04/11/2023 Telephone Rheumatology [facility] [address] [place] [address] Porter Sanchez MD [address] [place] [address] Medication Pre-auth Allergies Active Allergy Reactions Criticality Noted Date Comments Pollen 11/29/2014 documented as of this encounter (statuses as of 04/11/2023) Medications Medication Sig Dispensed Refills Start Date [...] as of this encounter (statuses as of 04/11/2023) Active Problems Problem Noted Date Diagnosed Date [...] as of this encounter (statuses as of 04/11/2023) Resolved Problems Problem Noted Date Diagnosed Date [...] as of this encounter (statuses as of 04/11/2023) Immunizations Name Administration Dates Next Due COVID-19 [...] Hermosillo RN - 04/11/2023 2:24 PM EST [place] plan for reclast built and routed for [...] 06/20/2023 9:30 AM EDT Office Visit Dermatology [facility] [address] [place] [address] Giuliana Bedolla MD 200 [facility] [place] [address] 07/04/2023 11:00 AM EDT Procedure Only Urology [facility] [address] [place] [address] Giuliana Stoddard MD [address] [place] [address] 08/15/2023 9:00 AM EDT Office Visit General Internal Medicine [facility] Maria G [place] [address] [place] [address] Danny Crystal MD 200 [facility] [place] [address] 04/15/2024 11:00 AM EST Office Visit Rheumatology [place] [address] [facility] [place] [address] Porter Sanchez MD [address] [facility] [address] Scheduled Procedures Name Priority Associated Diagnoses Date/Ti [...] history exists Zoster Vaccines Completed 12/16/2018, 09/15/2018 VITAMIN D LEVEL ONCE IN A LIFETIME-USE SMARTSET# [id number] Completed 04/18/2022, 01/18/2020, 02/01/2010 Influenza Vaccine (FLU shot) Completed , 11/09/2022, 11/02/2021, Additional history exists GARDASIL-HPV IMMUNIZATION SERIES Aged [...] and were consensually agreed upon. Care Teams Lens Maker Relationship Specialty Start Date End Date Danny Crystal MD 200 [facility], [place] [id number] PCP - General Internal Medicine 04/01/17 documented as of this encounter
--- OUTSIDE RECORDS SUMMARY | 2023-08-17 03:45 | External Medical Summary ---
Author Name Unknown Address Unknown Organization K01:[facility] - [address] [place] [address] Laboratory Report Ordering Provider Test Date Status TIMO LARA 04/11/2023 11:41:05 Final Observation Date Value Abnormality Reference (Units ) Status C4 04/11/2023 11:41:05 15 10-40 (mg/ dL) Final Performing Location [facility] - [address] [place] [address]
--- OUTSIDE RECORDS SUMMARY | 2023-08-17 03:45 | External Medical Summary | Summary of Care ---
Author Name Unknown Organization [facility] Address [address] [facility] [place] [address] Phone [phone] Care Team Providers Care County Agricultural Agent Name Role Phone Danny Crystal MD Primary Care Provider + Reason for Visit * Reason Comments Rheum Follow Up Follow up - clayton OSULLIVAN Encounter Details Date Type Department Care Team (Late st Contact Info) Description 04/11/2023 11:00 AM EST Office Visit Rheumatology [place] [address] [facility] [place] [address] Porter Sanchez MD [address] [facility] [place] [address] Senile osteoporosis*; Lupus (HCC) Allergies Active Allergy Reactions Criticality Noted Date [...] EVERY MORNING 90 Tablet 1 02/11/2023 Active documented as of this encounter (statuses [...] Sign Reading Time Taken Comments Blood Pressure - - Pulse - - Temperature 36.3 C (97.3 F) 04/11/2023 10:[address] Respiratory Rate - - Oxygen Saturation - - Inhaled Oxygen Concentration - - Weight 64 kg (141 lb) 04/11/2023 10:59 AM EST Height 168.9 cm (5' 6.5") 04/11/2023 10:59 AM ES T Body Mass Index 22.42 04/11/2023 10:59 AM EST documented in this encounter Patient Instructions * Patient Instructions* Porter Sanchez MD - 04/11/2023 11:17 AM EST RECLAST - Patient Education Zoledronic Acid Solution for injection Zoledronic Acid Solution for injection [Hypercalcemia of Malignancy] Zoledronic Acid Solution for injection [Pagets Disease] Zoledronic Acid Solution for injection What is this medicine? ZOLEDRONIC ACID (CAMILLE oliver stanley ik id) lowers the amount of calcium loss from bone. It is used to treat Paget's disease and osteoporosis in women. This medicine may be used for other purposes; ask your health care provider or pharmacist if you have questions. What should I tell my health care provider before I take this medicine? They need to know if you have any of these conditions: aspirin-sensitive asthma dental disease kidney disease low levels of calcium in the blood past surgery on the parathyroid gland or intestines an unusual or allergic reaction to zoledronic acid, other medicines, foods, dyes, or preservatives or trying to get breast-feeding How should I use this medicine? This medicine is for infusion into a vein. It is given by a health home health aide caregiver in a hospital or clinic setting. Talk to your cheerleading coach regarding the use of this medicine in children. This medicine is not approved for use in children. Overdose: If you think you have taken too much of this medicine contact a poison control center or emergency room at once. NOTE: This medicine is only for you. Do not share this medicine with others. What if I miss a dose? It is important not to miss your dose. Call your doctor or health home health aide caregiver if you are unable to keep an appointment. What may interact with this medicine? certain antibiotics given by injection NSAIDs, medicines for pain and inflammation, like ibuprofen or naproxen some diuretics like bumetanide, furosemide teriparatide This list may not describe all possible interactions. Give your health care provider a list of all the medicines, herbs, non-prescription drugs, or dietary supplements you use. Also, tell them if yousmoke, drink alcohol, or use illegal drugs. Some items may interact with your medicine. What should I watch for while using this medicine? Visit your doctor for regular check-ups. You will need important blood and lab work tests while youare taking this medicine. Women should inform their doctor if they wish to become or think they might be . There is a potential for serious side effects to an unborn child. Talk to your health home health aide caregiver or pharmacist for more information. It is important to get the right amount of calcium and vitamin D while you are taking this medicine. Talk to your doctor about the foods you eat and the vitamins you take. Some people who take this medicine have severe bone, joint, and/or muscle pain. Tell your doctor ifyou have pain that does not go away or that gets worse. Be sure you are well hydrated prior to receiving this medication. What side effects may I notice from receiving this medicine? Side effects that you should report to your doctor or health home health aide caregiver as soon as possible: allergic reactions like skin rash, itching or hives, swelling of the face, lips, or tongue breathing problems changes in vision feeling faint or lightheaded, falls jaw burning, cramping, or pain muscle cramps, stiffness, or weakness trouble passing urine or change in the amount of urine Side effects that usually do not require medical attention (report to your doctor or health home health aide caregiver if they continue or are bothersome): bone, joint, or muscle pain fever irritation at site where injected loss of appetite nausea, vomiting stomach upset tired This list may not describe all possible side effects. Call your doctor for medical advice about side effects. You may report side effects to FDA at 7-151-CPF-3367. Where should I keep my medicine? This drug is given in a hospital or clinic and will not be stored at home. NOTE:This sheet is a summary. It may not cover all possible information. If you have questions about this medicine, talk to your doctor, pharmacist, or health care provider. Copyright 2011 Gold Standard documented in this encounter Progress Notes * Porter Sanchez MD - 04/11/2023 11:12 AM EST Subjective: Patient seen today for further follow up evaluation of osteoporosis, SLE. Since the last visit she has started exercise program recently. No falls or fractures. She received reclast last year and hada reaction 5 days later. She does not take calcium+D supplements. She does eat a lot of vegetables but not diary. Labs last year looked good. She has no concerns for lupus flare. Musculoskeletal ROS: . Normal Other ROS: . Constitutional: normal . Head normal . Eyes: normal . Ears, nose, throat, mouth: normal . Cardiovascular: normal . Respiratory: normal . Gastrointestinal: normal . Genitourinary: normal . Skin: normal All other ros reviewed and negative Social History: Social History Tobacco Use Smoking status: Never Smokeless tobacco: Never Substance Use Topics Alcohol use: No Vaping/E-Cigarette Use Vaping/E-Cigarette Use Never User Vaping/E-Cigarette Substances Nicotine No Cannabidiol (CBD) No Vaping/E-Cigarette Devices Disposable No Current Outpatient Medications Medication Sig Dispense Refill [...] as needed for Rhinitis. 18.2 mL 0 valACYclovir HCl 500 MG Oral Tablet (Valtrex) take 1 tablet by mouth three times a day for 5 days if needed 30 Tablet 5 Ibuprofen 600 MG Oral Tablet (Motrin) TAKE ONE TABLET BY MOUTH THREE TIMES A DAY NEEDED FOR [id number] Tablet 1 Triamcinolone Acetonide 0.1 % External Ointment (Aristocort) Apply topically to affected area as needed (facial inflammation). Apply to affected Area twice a day as needed 15 g 2 Lisinopril 20 MG Oral Tablet (Prinivil) TAKE ONE TABLET BY MOUTH EVERY MORNING 90 Tablet 1 No current facility-administered medications for this visit. Physical Exam: Temp 36.3 C (97.3 F) (Infrared ) | Ht 1.689 m (5' 6.5") | Wt 64 kg (141 lb) | BMI 22.42 kg/m | BSA 1.73 m General: alert, healthy, no distress, and well nourished HENT: normocephalic, external ears normal, no mucosal erythema, no mucosal edema, moist mucosa, no oral ulcers Eye Exam: PERRL, EOMI, conjunctiva are pink and non-injected, sclera clear Neck: supple, no adenopathy, thyroid normal size, non-tender, without nodularity Lymph: no palpable lymphadenopathy Heart: regular rate & rhythm and no gallops Lungs: clear to auscultation , no rales, wheezes or rhonchi Abdomen: abdomen soft, non-tender, and normal bowel sounds Musculoskeletal Exam: . Synovitis: none . Tenderness: none . Effusion: none Normal strength Assessment: M81.0 Senile osteoporosis (primary encounter diagnosis) M32.9 Lupus (HCC) She is doing well with no evidence for lupus activity. As for the osteoporosis. Will update labs and get set up for another dose of Reclast. Will give a steroid Dosepak to have on hand if she has a infusion reaction again. Plan: 1. Lab work ordered 2. Will work on authorization for Reclast 3. Will order steroid Dosepak to have on hand if has infusion reaction 4. Return to clinic 1 year Porter Sanchez MD Department of Rheumatology documented in this encounter Nursing Notes * Mariam Tolbert LPN - 04/11/2023 10:57 AM EST Chief Complaint Patient presents with Rheum Follow Up Follow up - HIROC, lupus Last Reclast 05/01/22 documented in this encounter Plan of Treatment Upcoming Encounters Date Type Department Care Team ([facility] st Contact Info) Description 06/20/2023 9:30 AM EDT Office Visit Dermatology [address] [place] [address] Giuliana Bedolla MD [address] [place] [address] [place] [address] 07/04/2023 11:00 AM EDT Procedure Only Urology [facility] [address] [place] [address] Giuliana Stoddard MD [address] [place] [address] 08/15/2023 9:00 AM EDT Office Visit General Internal Medicine [facility] [address] [facility] [place] [address] Danny Crystal MD [address] [place] [address] [facility] [place] [address] 04/15/2024 11:00 AM EST Office Visit Rheumatology [address] [place] [address] Porter Sanchez MD [address] [place] [address] [place] [address] Pending Results Name Type Priority Associated Diagnoses Date /Time BASIC METABOLIC PANEL Lab Routine Senile osteoporosis 04/11/2023 11:41 AM EST 25-HYDROXY VITAMIN D Lab Routine Senile osteoporosis 04/11/2023 11:41 AM EST COMPLEMENT C3 Lab Routine Lupus ([facility]) 04/11/2023 11:41 AM EST COMPLEMENT C4 Lab Routine Lupus ([facility]) 04/11/2023 11:41 AM EST DOUBLE STRANDED DNA (DSDNA) ANTIBODY, IFA Lab Routine Lupus ([facility]) 04/11/2023 11:41 AM EST Scheduled Orders Name Type Priority Associated Diagnoses Orde r Schedule BASIC METABOLIC PANEL Lab Routine Senile osteoporosis Expected: 04/11/2023 (Approximate), Expires: 07/12/2023 COMPLEMENT C3 Lab Routine Lupus ([facility]) Expected: 04/11/2023, Expires: 04/11/2024 COMPLEMENT C4 Lab Routine Lupus ([facility]) Expected: 04/11/2023, Expires: 04/11/2024 DOUBLE STRANDED DNA (DSDNA) ANTIBODY, IFA Lab Routine Lupus ([facility]) Expected: 04/11/2023, Expires: 04/11/2024 Scheduled Procedures Name Priority Associated Diagnoses Date/Ti me COLONOSCOPY FLEXIBLE PROXIMA L DIAGNOSTIC Recall History of colon polyps Screen for colon cancer Health Maintenance Due Date Last Done Comments COVID-19 Vaccine ( season) 2023 12/18/2022, 08/13/2022, 11/19/2021, Additional history exists Mammogram 07/07/2023 07/06/2022, 06/25, 11/28/2020, Additional history exists Depression Screening 08/14/2023 08/13/2022 GFR 08/14/2023 08/13/2022, 03/29, 08/23/2021, Additional history exists DXA Scan 04/17/2024 04/17/2022, [...] D LEVEL ONCE IN A LIFETIME-USE SMARTSET# [id number] Completed 04/18/2022, 01/18/2020, 02/01/2010 Influenza Vaccine (FLU [...] encounter Visit Diagnoses Diagnosis Senile osteoporosis- Primary Lupus (HCC) Systemic lupus erythematosus documented in this encounter Advance Directives Latest Code Status on File Code Status Date Activated Date Inactivated Comments Full Code 07/12/2017 8:19 AM 07/12/2017 3:32 PM This order reflects the patients wishes and were consensually agreed upon. Care Teams County Agricultural Agent Relationship Specialty Start Date End Date Danny Crystal MD [address] [place] [address] PCP - General Internal Medicine 04/01/17 documented as of this encounter
--- OUTSIDE RECORDS SUMMARY | 2023-08-17 03:45 | External Medical Summary ---
Author Name Unknown Address Unknown Organization K01:[facility] - [address] [place] [address] Laboratory Report Ordering Provider Test Date Status TIMO LARA 04/11/2023 11:41:05 Final Observation Date Value Abnormality Reference (Units ) Status DNA double strand Ab [Presence] in Serum 04/11/2023 11:41:05 Negative Negative Final DNA double strand Ab [Titer] in Serum by Immunofluorescence (IF) Joe beckham 04/11/2023 11:41:05 <1:10 <1:10 (Titer) Final Performing Location [facility] - [address] [place] [address]
--- OUTSIDE RECORDS SUMMARY | 2023-08-17 03:45 | External Medical Summary | Summary of Care ---
Author Name Unknown Organization [facility] Address [address] [facility] [place] [address] Phone [phone] Care Team Providers Care Document Control Manager Name Role Phone Danny Crystal MD Primary Care Provider + Reason for Visit * Reason Onset Date Comments Health Maintenance 03/08/2023 Encounter Details Date Type Department Care Team (Late st Contact Info) Description 03/08/2023 Telephone General Internal Medicine [facility] [place] [address] [facility] [place] [address] Danny [place] MD [address] [facility] [place] [address] Health Maintenance Allergies Active Allergy Reactions Criticality Noted Date Comments Pollen 11/29/2014 documented as of this encounter (statuses as of 03/08/2023) Medications Medication Sig Dispensed Refills Start Date [...] as of this encounter (statuses as of 03/08/2023) Active Problems Problem Noted Date Diagnosed Date 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 Senile osteoporosis 04/19/2022 Mild mitral regurgitation 12/18/2020 Diastolic dysfunction 12/18/2020 Melanoma in situ of upper extremity, left 2020 Lupus 11/11/2019 History of gallstones 11/11/2019 Overview: No symptoms Basal cell carcinoma (BCC) of left ala nasi 1102/2017 Renal cyst, right 04/01/2017 History of esophageal stricture 09/06/2016 History of melanoma in situ 12/11/2012 Overview: left forearm 08/2009 HTN, goal below 140/90 10/09/2012 History of malignant melanoma 12/13/2009 Sebaceous cyst 11/29/2000 Dermatofibroma 11/29/2000 documented as of this encounter (statuses as of 03/08/2023) Resolved Problems Problem Noted Date Diagnosed Date [...] as of this encounter (statuses as of 03/08/2023) Immunizations Name Administration Dates Next Due COVID-19 mRNA, LNP-s, No Pre serve, 2-Dose Series (Moderna) 06/06/2021,04/22/2020,03/25/2020 COVID-19, mRNA, LNP-s, PF, B ooster, 100mcg/0.5mg (Moderna) 11/19/2021,06/05/2021,12/26/2020 Covid-19, Mrna, Lnp-s, Pf, B ivalent, 50 Mcg, IM, 12 yrs and above (Moderna) 12/18/2022,08/13/2022 PPD 07/17/2010,06/03/2007 Seasonal Influenza Virus Vac cine, Unspecified Formulation 11/11/2019 Seasonal Influenza, PF, 6 M & above, [...] encounter Miscellaneous Notes * Telephone Encounter - Thea Bravo LPN - 03/08/2023 3:08 PM EST Care Gaps Comprehensive Care Outreach Last Office/Telemedicine Visit: 10/22/2022 (in office), 06/29/2021 (telemedicine) Next Office Visit: 08/15/2023 Hemoglobin AIC Results: No results found for: "HEMOGLOBIN A1C" Reviewed Health Maintenance below: Health Maintenance Topic Date Due COVID-19 Vaccine ( season) 2023 Mammogram 07/07/2023 GFR 08/14/2023 Depression Screening 08/14/2023 DXA Scan 04/17/2024 Albumin/Creatinine Ratio 08/15/2025 Mamm after july 06 Care Gap Outreach Action Taken: Unable to reach someones picks up but disconnects documented in this encounter Plan of Treatment Upcoming Encounters Date Type Department Care Team (Late st Contact Info) Description 04/11/2023 11:00 AM EST Office Visit Rheumatology [place] [phone] [employer] [place] [address] Porter Sanchez MD [facility] [employer] [place] [address] 06/20/2023 9:30 AM EDT Office Visit Dermatology [facility] [address] [place] [address] Giuliana Bedolla MD [address] [facility] [place] [address] 07/04/2023 11:00 AM EDT Procedure Only Urology [facility] [address] [place] [address] Giuliana Stoddard MD [address] [place] [address] 08/15/2023 9:00 AM EDT Office Visit General Internal Medicine [facility] [address] [place] [address] Danny [place] MD [address] [facility] [place] [facility] [place] [address] Scheduled Procedures Name Priority Associated Diagnoses Date/Ti me COLONOSCOPY FLEXIBLE PROXIMA L DIAGNOSTIC Recall History of colon polyps Screen for colon cancer Health Maintenance Due Date Last Done Comments COVID-19 Vaccine (2022- season) 2023 12/18/2022, 08/13/2022, 11/19/2021, Additional history exists Mammogram 07/07/2023 07/06/2022, 05/2020, 11/27/2019, Additional history exists Depression Screening 08/14/2023 08/13/2022 GFR 08/14/2023 08/13/2022, 03/29, 08/23/2021, Additional history exists DXA Scan 04/17/2024 04/17/2022, 12/28, 09/13/2015, Additional history exists Albumin/Creatinine Ratio 08/15/2025 08/15/2022 COLONOSCOPY-EVERY 5 YRS AGES 18-100 05/18/2027 05/17/2022, 05/17/2022, 03/25/2017, Additional history exists Lipid Panel 08/14/2027 08/13/2022, 07/26, 11/14/2020, Additional history exists DTaP,Tdap,and Td Vaccines (3 - Td or Tdap) 08/13/2032 08/13/2022, 07/31/2012, 05/16/2004, Additional history exists Zoster Vaccines Completed 12/16/2018, 09/15/2018 VITAMIN D LEVEL ONCE IN A LIFETIME-USE SMARTSET# [id number] Completed 04/18/2022, 01/18/2020, 02/01/2010 Influenza Vaccine (FLU [...] and were consensually agreed upon. Care Teams Document Control Manager Relationship Specialty Start Date End Date Danny [place] MD [address] [place] [address] PCP - General Internal Medicine 04/01/17 documented as of this encounter
--- OUTSIDE RECORDS SUMMARY | 2023-08-17 03:45 | External Medical Summary | Summary of Care ---
Author Name Unknown Organization [facility] Address [address] [facility] [place] [address] Phone [phone] Care Team Providers Care Mill Dresser Name Role Phone Danny Crystal MD Primary Care Provider + Reason for Visit * Reason Comments Outpatient Testing Encounter Details Date Type Department Care Team (Late st Contact Info) Description 04/11/2023 11:50 AM EST Laboratory Laboratory, [facility] [address] [place] [id number] [facility] [address] [place] [address] Senile osteoporosis; Lupus (HCC) Allergies Active Allergy Reactions Criticality [...] Upcoming Encounters Date Type Department Care Team ([facility] st Contact Info) Description 06/20/2023 9:30 AM EDT Office Visit Dermatology [facility] [address] [facility] [place] [address] Giuliana Bedolla MD [address] [facility] [place] [place] [address] 07/04/2023 11:00 AM EDT Procedure Only Urology [facility] [address] [place] [address] Giuliana Stoddard MD [address] [place] [address] 08/15/2023 9:00 AM EDT Office Visit General Internal Medicine [facility] [address] [facility] [place], [place] [address] Danny Crsytal MD [address] [facility] [place] [place] [address] 04/15/2024 11:00 AM EST Office Visit Rheumatology [place] [address] [employer] [place] [place] [address] Porter Sanchez MD [facility] [place] [address] Pending Results Name Type Priority Associated Diagnoses Date /Time BASIC METABOLIC PANEL Lab Routine Senile osteoporosis 04/11/2023 11:41 AM EST COMPLEMENT C3 Lab Routine Lupus (HCC) 04/11/2023 11:41 AM EST COMPLEMENT C4 Lab Routine Lupus ([facility]) 04/11/2023 11:41 AM EST DOUBLE STRANDED DNA (DSDNA) ANTIBODY, IFA Lab Routine Lupus ([facility]) 04/11/2023 11:41 AM EST Scheduled Procedures Name Priority Associated Diagnoses Date/Ti [...] D LEVEL ONCE IN A LIFETIME-USE SMARTSET# [id number] Completed 04/18/2022, 01/18/2020, 02/01/2010 Influenza Vaccine (FLU [...] of this encounter Visit Diagnoses Diagnosis Senile osteoporosis Lupus (HCC) Systemic lupus erythematosus documented in this encounter Advance Directives Latest Code Status on File Code Status Date Activated Date Inactivated Comments Full Code 07/12/2017 8:19 AM 07/12/2017 3:32 PM This order reflects the patients wishes and were consensually agreed upon. Care Teams Mill Dresser Relationship Specialty Start Date End Date Danny Crystal MD [address] [facility] [place] [address] PCP - General Internal Medicine 04/01/17 documented as of this encounter
[2023-08-17] MEDS: ONDANSETRON INJ 2 MG/ML 2 ML VIAL IV STA (03:52)
[2023-08-17] MEDS: HYDROmorphone INJ 0.5 MG/0.5 ML SYR IV STA ×2 (03:52→04:56)
--- NOTE | 2023-08-17 03:59 | Emergency Department Note ---
Impression & Plan Headache, UTI (urinary tract infection), Sphenoid sinusitis the case was signed out to Dr. Koroma at change of shift awaiting lumbar puncture under fluoroscopy ED Provider Note NAME: ARJUN BEAULIEU AGE: 63 SEX: Female INFORMANT: Patient ED PROVIDER(S): Bruna Padgett DO CHIEF COMPLAINT: Severe headache PLAN: Disposition: signed out to oncoming physician MEDICAL DECISION MAKING: this is a 63-year-old female patient presents emergency department with a severe headache. The patient has a history of systemic lupus but does not typically get headaches. This headache started 2 days ago and became significantly worse in the past couple of hours. She has tried taking multiple medications at home including ibuprofen and Excedrin Migraine. patient saw her PCP 2 days ago for a yearly physical and described the headache as well as some joint swelling. A Lyme test was done at that time which was negative. Laboratory studies here revealed evidence of no leukocytosis or anemia. Glucose was 1115. BUN and creatinine were normal but BUN/creatinine ratio was elevated to 25.8. Urinalysis did reveal evidence of urinary tract infection. The patient was treated with a liter of normal saline solution for some mild evidence of dehydration. Patient was initially medicated with IV Dilaudid and Zofran for which she described as the worst headache she has ever had. She went emergently for CT scan of the brain to rule out intracranial hemorrhage. This Revealed no hemorrhage but there was evidence of sphenoid sinusitis. She received a second dose of IV Dilaudid with again no significant relief to the head pain. She went on to receive IV droperidol. Again, the head pain persisted at a level of 6 on a scale of 1/10. I attempted a lumbar puncture on this patient but was unsuccessful. I contacted the radiologist on-call to perform the lumbar puncture under fluoroscopy. Patient was ordered to have MRI of the brain with and without contrast. EKG was performed to rule out any evidence of prolonged QT prior to giving the patient any additional medications. She will have IV Compazine upon returning from lumbar puncture. The case was signed out to the oncoming physician-Dr. Koroma. Triage Nursing notes: reviewed and agree With them. Vital Signs: reviewed and remarkable for hypertension Additional History obtained from: patient's Differential Diagnosis: intracranial hemorrhage, migraine, Meningitis, tension headache Diagnostics, independently interpreted by me: ECG: Sinus tachycardia at a rate of 104 Cardiac Monitoring: sinus tachycardia of 107 Imaging studies: stat CT scan of the brain: As per stat rad MRI of the brain: Pending HPI: 63 year old Female arrives for evaluation of headache. Patient developed a headache 2 days ago which is unusual for her. It has progressively worsened to the point that it became quite severe tonight over the past 2 hours. She has been taking ibuprofen and tried using Excedrin Migraine with no relief of her symptoms. She has no associated nausea, vomiting or photophobia. PAST MEDICAL HISTORY: See Below, PAST SURGICAL HISTORY: See Below, SOCIAL HISTORY: See Below, HOME MEDICATIONS: See list ALLERGIES: see VITALS: See Below PHYSICAL EXAMINATION: HEENT: Head - normocephalic and atraumatic. Pupils are equal, round, and reactive to light. Extraocular eye muscles are intact and sclera are anicteric. Ears - bilaterally patent canals with noninjected tympanic membranes and no evidence of hemotympanum. Nose - moist nasal mucosa without discharge. Mouth - moist buccal mucosa. Oropharynx is nonerythematous and there is no tonsillar exudate or edema noted. Neck: Supple; no JVD, nuchal rigidity, cervical lymphadenopathy, or auscultated bruits. Heart: tachycardic rate and regular rhythm. There is a normal S1 and S2 with no murmurs, clicks, or gallops appreciated. Lungs: Clear to auscultation bilaterally with no wheezes, rales, or rhonchi. Abdomen: Soft, completely nontender, nondistended, with good bowel sounds. There are no palpable pulsatile masses or hepatosplenomegaly. There is no guarding, rigidity, or rebound noted. Extremities: No evidence of cyanosis, clubbing, or edema. There are easily palpable peripheral pulses. Neuro:The patient is awake and alert, oriented to day, time, and place. Muscle strength is 5/5 in all 4 extremities. The patient has equal laryngologist strength and equal pedal push and pull. There are no cerebellar signs. Skin: Pale, warm and dry. Emergency department treatment: personnel monitor, IV Dilaudid, IV Zofran, IV Dilaudid, IV droperidol, IV normal saline bolus, IV Compazine Emergency department course: The patient was evaluated in room A-4. A complete history and physical was performed. An IV lock was initiated and labs were drawn as above. Patient was medicated with IV Zofran and IV Dilaudid and went for a stat CT scan of the brain. upon returning from radiology, the patient had persistent severe head pain and was given a a second dose of IV Dilaudid. She got only minimal relief of her discomfort. She was bolused with IV normal saline solution as her BUN/creatinine ratio was elevated. I reviewed the results of laboratory studies with the patient and her . Patient said pain persisted and she was given a dose of IV droperidol. This gave her no relief to her head pain. The decision was made to perform lumbar puncture. The patient was consented for this procedure. Please see the procedure note below. Unfortunately, this was unsuccessful. I contacted the radiologist on-call and they will perform the procedure under fluoroscopy. EKG was performed and revealed a normal QTc. Patient will have IV Compazine upon returning from fluoroscopy. Patient was ordered to have MRI with and without contrast of the brain. The case was signed out to Dr. Koroma at change of shift awaiting for the above results. Lumbar Puncture Indication: Severe headache. Verbal consent was obtained after the risks and benefits were explained. At this time, the risks of the procedure are less than the risks of NOT performing the procedure. A time out was taken and the correct patient and site identified. The patient was placed draped over a tray table and the back was prepped with betadine and draped in the standard fashion. The L3 intervertebral space was identified, anesthetized locally with 1% lidocaine without epinephrine, and the spinal needle was inserted through the skin with the bevel parallel to the dural fibers. I was unable to advance the needle into the lumbar cistern. I went 1 level above and anesthetized in that area with 1% lidocaine and a spinal needle was inserted through the skin with the bevel parallel to the dural fibers. Again, I was unable to advance into the lumbar cistern. A bandaid was placed and the patient was placed in the supine position. Past Med/Surg History Problem List (Updated 08/17/23 @ 07:52 by Bruna Padgett DO) Sphenoid sinusitis (Acute) UTI (urinary tract infection) (Acute) Headache (Acute) Medical History History of basal cell cancer BASE OF NOSE Bladder cancer Systemic lupus Surgical History History of D&C H/O breast surgery BENIGN TUMORS FROM BOTH BREASTS NO LYMPH NODES H/O oral surgery Ceres teeth removed History of section History of tonsillectomy and adenoidectomy History of appendectomy H/O: hysterectomy H/O cystoscopy BLADDER SURGERY FOR CANCER H/O melanoma excision Social History Smoking Status: Never smoker Preferred Language: Georgian Feels Safe at Home: Yes Allergies Allergies Allergy/AdvReac Type Severity Reaction Status Date / Time No Known Drug Allergies Allergy Mild NONE Verified 03/12/19 07:53 adhesive AdvReac Mild REDNESS,BUM Verified 03/12/19 07:53 PS Home Meds Home Medications Medication Instructions Recorded Confirmed carboxymethylcellulose 0.5 1 drp ophthalmic (eye) DAILY PRN 08/27/18 03/12/19 %-glycerin 0.9 % eye drops lupus s/s (Refresh Optive) diphenhydramine HCl 25 mg capsule 25 mg PO Q6 PRN Allergy Symptoms 08/27/18 03/12/19 (Benadryl) ferrous sulfate 142 mg (45 mg 142 mg PO 3XWK 08/27/18 03/12/19 iron) tablet,extended release (Slow Fe) ibuprofen 600 mg tablet 600 mg PO DAILY 08/27/18 03/12/19 lisinopril 5 mg tablet 5 mg PO DAILY 08/27/18 03/12/19 loteprednol etabonate 0.5 % eye 3 drp ophthalmic (eye) DAILY PRN 08/27/18 03/12/19 gel drops (Lotemax) lupus s/s [id number] 1 tab PO DAILY 08/27/18 03/12/19 tablet (Multivitamin 50 Plus tablet) terbinafine HCl 1 % topical cream 1 % topical BID PRN rash 08/27/18 03/12/19 (Lamisil AT) triamcinolone acetonide 0.1 % 1 applic topical BID PRN Rash 08/27/18 03/12/19 topical cream valacyclovir 500 mg tablet 500 mg PO DAILY PRN sores 08/27/18 03/12/19 (Valtrex) doxycycline hyclate 50 mg capsule 50 mg PO DAILY 02/26/19 03/12/19 Results & Data (ED) Vital Signs Vital Signs - 24 hr 08/17/23 03:27 08/17/23 04:19 08/17/23 05:00 Temperature 36.8 C Temperature Source Oral Pulse Rate 95 H Pulse Rate [Right Finger] 80 80 Pulse Rhythm [Right Finger] Regular Regular Pulse Strength [Right Finger] Normal Normal Respiratory Rate 18 20 20 Respiratory Effort / Characteristics Non-Labored Spontaneous Non-Labored Spontaneous Non-Labored Spontaneous Respiratory Depth Normal Normal Normal Respiratory Pattern Regular Regular Blood Pressure 168/84 H Blood Pressure [Left Arm] 162/86 H 132/72 Blood Pressure Mean 112 Blood Pressure Mean [Left Arm] 111 92 Blood Pressure Position [Left Arm] Lying Lying Pulse Oximetry 99 95 95 Oxygen Delivery Method Room Air Room Air Room Air Sepsis Recent Fever Within 48 Hours No Sepsis New/Unexplained Change in Mental Status N/A Sepsis Action Taken by Nursing No Action Required 08/17/23 07:00 Temperature Temperature Source Pulse Rate Pulse Rate [Right Finger] 108 H Pulse Rhythm [Right Finger] Pulse Strength [Right Finger] Respiratory Rate 18 Respiratory Effort / Characteristics Non-Labored Spontaneous Respiratory Depth Normal Respiratory Pattern Blood Pressure Blood Pressure [Left Arm] 149/82 H Blood Pressure Mean Blood Pressure Mean [Left Arm] 104 Blood Pressure Position [Left Arm] Lying Pulse Oximetry 97 Oxygen Delivery Method Room Air Sepsis Recent Fever Within 48 Hours Sepsis New/Unexplained Change in Mental Status Sepsis Action Taken by Nursing Laboratory Data 08/17/23 04:02 08/17/23 04:02 Lab Results 08/17/23 08/17/23 Range/Units 04:02 05:25 WBC 8.34 (4.8-10.8) K/ul RBC 4.21 (4.20-5.40) M/uL Hgb 12.3 (12.0-16.0) g/dl Hct 35.3 L (37.0-47.0) % MCV 83.8 (80.0-100.0) fL MCH 29.2 (25.0-34.0) pg MCHC 34.8 (32.0-36.0) g/dL RDW Std Deviation 37.5 (36.4-46.3) fL RDW Coeff of Clarisa 12.4 (11.5-14.5) % Plt Count 261 (130-400) K/uL MPV 9.3 L (9.4-12.4) fL Immature Gran % (Auto) 0.2 % Neut % (Auto) 75.9 % Lymph % (Auto) 15.3 % Wheeler % (Auto) 7.0 % Eos % (Auto) 1.2 % Baso % (Auto) 0.4 % Neut # (Auto) 6.33 (1.40-6.50) K/uL Lymph # (Auto) 1.28 (1.20-3.40) K/uL Wheeler # (Auto) 0.58 (0.11-0.59) K/uL Eos # (Auto) 0.10 (0.00-0.50) K/uL Baso # (Auto) 0.03 (0.00-0.20) K/uL Immature Gran # (Auto) 0.02 (0.01-0.20) K/uL Sodium 136 (136-145) mmol/L Potassium 3.8 (3.5-5.1) mmol/L Chloride 101 (98-107) mmol/L Carbon Dioxide 27 (21-32) mmol/L Anion Gap 8 (3-11) BUN 17 (6-23) mg/dl Creatinine 0.66 (0.6-1.2) mg/dl Est Cr Clr Drug Dosing 81.7 ml/min Est GFR ( Amer) 109.0 ml/min Est GFR (Non-Af Amer) 94.0 ml/min BUN/Creatinine Ratio 25.8 H (10-20) Glucose 115 H (70-99(Fasting)) mg/dl Calcium 9.5 (8.6-10.3) mg/dl Total Bilirubin 0.6 (0.2-1.0) mg/dl AST 16 (13-39) U/L ALT 11 (7-52) U/L Alkaline Phosphatase 48 (34-104) U/L Total Protein 7.1 (6.0-8.3) gm/dl Albumin 4.5 (3.4-5.0) gm/dl Globulin 2.6 (2.5-4.0) gm/dl Albumin/Globulin Ratio 1.7 (0.9-2) Urine Color Yellow Urine Appearance Clear (Clear) Urine pH 5.5 (4.5-7.5) Ur Specific Casco 1.021 (1.000-1.030) Urine Protein Trace H (Negative) Urine Glucose (UA) Negative (Negative) Urine Ketones Negative (Negative) Urine Blood 2+ H (Negative) Urine Nitrite Negative (Negative) Urine Bilirubin Negative (Negative) Urine Urobilinogen Negative (Negative) Ur Leukocyte Esterase 1+ H (Negative) Urine WBC (Auto) 6-10 H (0-5) /hpf Urine RBC (Auto) >20 H (0-2) /hpf U Hyaline Cast (Auto) 3-5 H (0-2) /lpf U Epithel Cells (Auto) 0-2 (0-2) /hpf Urine Bacteria (Auto) None Seen (None Seen) Administered Medications Discontinued Medications Droperidol (Droperidol 5 Mg/2 Ml Vial) 1.25 mg IV ONE STA Stop: 08/17/23 05:38 Last Admin: 08/17/23 05:42 Dose: 1.25 mg Documented By: BUCKY Hydromorphone HCl (Hydromorphone Inj 0.5 Mg/0.5 Ml Syr) 0.5 mg IV NOW STA Stop: 08/17/23 03:49 Last Admin: 08/17/23 03:52 Dose: 0.5 mg Documented By: BUCKY Hydromorphone HCl (Hydromorphone Inj 0.5 Mg/0.5 Ml Syr) 0.5 mg IV NOW STA Stop: 08/17/23 04:51 Last Admin: 08/17/23 04:56 Dose: 0.5 mg Documented By: BUCKY Sodium Chloride (Nss) 1,000 mls @ 999 mls/hr IV .Q1H1M ONE Stop: 08/17/23 05:50 Last Infusion: 08/17/23 05:57 Dose: Infused Documented By: Admin: 08/17/23 04:56 Dose: 999 mls/hr Documented By: BUCKY Ondansetron HCl (Ondansetron Inj 2 Mg/Ml 2 Ml Vial) 4 mg IV NOW STA Stop: 08/17/23 03:49 Last Admin: 08/17/23 03:52 Dose: 4 mg Documented By: BUCKY Imaging Data Radiologist's Impression: Head CT 08/17/23 03:48 Exam(s): CT HEAD Without Contrast EXAM: CT Head Without Intravenous Contrast CLINICAL HISTORY: Reason for exam: Headache. TECHNIQUE: Axial computed tomography images of the head/brain without intravenous contrast. Automated exposure control was utilized for the study. A dose lowering technique was utilized adhering to the principles of ALARA. COMPARISON: No relevant prior studies available. FINDINGS: Brain: Unremarkable. No hemorrhage. No significant white matter disease. No edema. Ventricles: Unremarkable. No ventriculomegaly. Bones/joints: Unremarkable. No acute fracture. Soft tissues: Unremarkable. Sinuses: Opacified right sphenoid sinus with mild mucoperiosteal thickening. Rest of the partially visualized paranasal sinuses are clear. Mastoid air cells: Unremarkable as visualized. No mastoid effusion. IMPRESSION: 1. No evidence of acute intracranial abnormality 2. Opacified right sphenoid sinus with mild mucoperiosteal thickening. Chronic right sphenoid sinusitis. Electronically signed by: Ok Calvo M.D. 08/17/23 04:22 AM Discharge Plan Visit Data Chief Complaint: Headache Stated Complaint: HEADACHE ED Provider: Bruna Padgett Discharge Problem: Headache, UTI (urinary tract infection), Sphenoid sinusitis Forms Stand Alone Forms: [facility] [employer] Prescriptions Prescriptions: No Action lisinopril 5 mg Tablet 5 mg PO DAILY ibuprofen 600 mg Tablet 600 mg PO DAILY Multivitamin 50 Plus Tablet 1 tab PO DAILY Slow Fe 142 mg (45 mg iron) Tablet Extended Release 142 mg PO 3XWK Rx Instructions: M-W- terbinafine HCl [Lamisil AT] 1 % Cream 1 % topical BID PRN (Reason: rash) valacyclovir [Valtrex] 500 mg Tablet 500 mg PO DAILY PRN (Reason: sores) triamcinolone acetonide 0.1 % Cream 1 applic TOPICAL BID PRN (Reason: Rash) diphenhydramine HCl [Benadryl] 25 mg Capsule 25 mg PO Q6 PRN (Reason: Allergy Symptoms) Refresh Optive 0.5-0.9 % Drops 1 drp ophthalmic (eye) DAILY PRN (Reason: lupus s/s) Lotemax 0.5 % Drops,Gel 3 drp ophthalmic (eye) DAILY PRN (Reason: lupus s/s) doxycycline hyclate 50 mg Capsule 50 mg PO DAILY Referrals Referrals: Danny Crystal MD [Primary Care Provider] -
--- NOTE | 2023-08-17 04:23 | CT Scan Report ---
Exam(s): CT HEAD Without Contrast EXAM: CT Head Without Intravenous Contrast CLINICAL HISTORY: Reason for exam: Headache. TECHNIQUE: Axial computed tomography images of the head/brain without intravenous contrast. Automated exposure control was utilized for the study. A dose lowering technique was utilized adhering to the principles of ALARA. COMPARISON: No relevant prior studies available. FINDINGS: Brain: Unremarkable. No hemorrhage. No significant white matter disease. No edema. Ventricles: Unremarkable. No ventriculomegaly. Bones/joints: Unremarkable. No acute fracture. Soft tissues: Unremarkable. Sinuses: Opacified right sphenoid sinus with mild mucoperiosteal thickening. Rest of the partially visualized paranasal sinuses are clear. Mastoid air cells: Unremarkable as visualized. No mastoid effusion. IMPRESSION: 1. No evidence of acute intracranial abnormality 2. Opacified right sphenoid sinus with mild mucoperiosteal thickening. Chronic right sphenoid sinusitis. Electronically signed by: Ok Calvo M.D. 08/17/23 04:22 AM
[2023-08-17 04:33] LABS: Basophils # (auto) 0.03 K/uL (0.00-0.20); Basophils % (auto) 0.4 %; Eosinophils % (auto) 1.2 %; Hematocrit (blood only) 35.3 % (37.0-47.0); Hemoglobin 12.3 g/dl (12.0-16.0); Immature Granulocytes # (auto) 0.02 K/uL (0.01-0.20); Immature Granulocytes % (auto) 0.2 %; Lymphocytes # (auto) 1.28 K/uL (1.20-3.40); Lymphocytes % (auto) 15.3 %; Mean Corpuscular Hemoglobin 29.2 pg (25.0-34.0); Mean Corpuscular Hgb Conc 34.8 g/dL (32.0-36.0); Mean Corpuscular Volume 83.8 fL (80.0-100.0); Mean Platelet Volume 9.3 fL (9.4-12.4); Monocytes # (auto) 0.58 K/uL (0.11-0.59); Neutrophils # (auto) 6.33 K/uL (1.40-6.50); Neutrophils % (auto) 75.9 %; Platelet Count 261 K/uL (130-400); RDW Coefficient of Variation 12.4 % (11.5-14.5); RDW Standard Deviation 37.5 fL (36.4-46.3); Red Blood Count 4.21 M/uL (4.20-5.40); White Blood Count 8.34 K/ul (4.8-10.8)
[2023-08-17 04:37] LABS: Albumin Globulin Ratio 1.7 (0.9-2); Albumin Level 4.5 gm/dl (3.4-5.0); BUN Creatinine Ratio 25.8 (10-20); Bilirubin,Total 0.6 mg/dl (0.2-1.0); Calcium 9.5 mg/dl (8.6-10.3); Creatinine Clr Calc Pharmacy 81.7 ml/min; Globulin 2.6 gm/dl (2.5-4.0); Potassium 3.8 mmol/L (3.5-5.1); Total Protein 7.1 gm/dl (6.0-8.3)
[2023-08-17] MEDS: SODIUM CHLORIDE 0.9% 1,000 ML IV ONE (04:56)
[2023-08-17 05:42] LABS: Appearance Urine Clear (Clear); Bacteria Urine Automated None Seen (None Seen); Bilirubin Urine Negative (Negative); Blood Urine 2+ (Negative); Color Urine Yellow; Epithelial Cell Urine Auto 0-2 /hpf (0-2); Glucose Urine UA Negative (Negative); Ketones Urine Negative (Negative); Leukocyte Esterase Urine 1+ (Negative); Nitrite Urine Negative (Negative); Protein Urine Trace (Negative); RBC Urine Automated >20 /hpf (0-2); Specific Gravity Urine 1.021 (1.000-1.030); Urobilinogen Urine Negative (Negative); pH Urine 5.5 (4.5-7.5)
[2023-08-17] MEDS: DROPERIDOL 5 MG/2 ML VIAL IV STA (05:42)
[2023-08-17] MEDS: PROCHLORPERAZINE 1 ML IV ONE (08:40)
[2023-08-17 09:07] LABS: Total Protein CSF 28.2 mg/dl (15-45)
[2023-08-17 09:17] LABS: Appearance CSF Clear; CSF Count Tube # 3; CSF Xanthrochromic No xanthochromia; Color CSF Colorless; Red Blood Cell CSF Manual 0 (0-); White Blood Cell CSF Manual 0 (0-5)
--- NOTE | 2023-08-17 09:22 | Fluoroscopy Report ---
FLUOROSCOPIC GUIDED LUMBAR PUNCTURE CLINICAL HISTORY: Headache. PROCEDURE: The risks, benefits, and alternatives to the procedure is discussed with the patient who v oiced understanding. Written informed consent was obtained. The patient was placed prone on the fluor oscopy table. The lower back was prepped and draped in the usual sterile fashion. 1% lidocaine was us ed for local anesthesia. A 22-gauge spinal needle was inserted into the L4-L5 interlaminar space, ope yvonne pressures were assessed, and approximately 10 cc of clear colorless cerebrospinal fluid was jenny michele. 2 spot images are saved. The patient tolerated the procedure well. There were no immediate compl ications. The patient was then returned to the Emergency Department for further observation. Fluoroscopy time: 11 seconds Opening pressure: 24 cm water Ka,r: 4.76 mGy IMPRESSION: Fluoroscopic guided lumbar puncture with removal of approximately 10 cc of cerebrospinal fluid. There were no immediate complications. ACT 112: Negative or not required by law. Electronically signed by: Dewayne Marsh M.D. 08/17/2023 9:21 AM
[2023-08-17] MEDS: GADOBUTROL 65ML VIAL IV ONE (10:02)
--- NOTE | 2023-08-17 11:03 | Magnetic Resonance Report ---
MRI OF THE BRAIN COMBO CLINICAL HISTORY: Headache. COMPARISON STUDY: CT of the brain dated 08/17/2023. TECHNIQUE: MRI of the brain was performed utilizing various T1 and T2-weighted sequences in the axial , sagittal, and coronal planes. Contrast-enhanced sequences were acquired following the administratio n of 6.5 cc of Gadavist. FINDINGS: Brain parenchyma: There is nonspecific increased T2 signal within the basal ganglia bilaterally, pred ominantly involving the globus pallidus. This is best seen on axial T2-weighted image #13. There is m inimal microangiopathic change. There is no hemorrhage or mass effect. There is no restricted diffusi on typical for acute ischemia. No enhancing mass lesion is identified on the postcontrast images. Gra y-white matter differentiation is preserved. No extra-axial fluid collection is seen. The cerebellar tonsils are normal in configuration. Ventricles, sulci, and cisterns: Normal in configuration. Pituitary and sella: Unremarkable. Intracranial vasculature: Normal flow voids are maintained at the skull base. Orbits: The bony orbits are grossly intact. Orbital contents are normal in appearance. Sinuses and mastoids: There is near complete opacification of the right sphenoid sinus. Moderate muco clementine thickening is noted in the left sphenoid sinus, the posterior ethmoid sinuses. Metatarsals are cl ear. Calvarium: Unremarkable. Cervical cord: Partially visualized cervical spinal cord is normal in morphology and signal intensity . IMPRESSION: 1. There is no hemorrhage, enhancing mass, or evidence of acute ischemia. 2. There is symmetric increased T2 signal within the basal ganglia bilaterally, predominantly involvi ng the globus pallidus. This is indeterminant (if any) clinical significance and clinical correlation will be essential. 3. Right sphenoid sinus disease as above. Correlate clinically for evidence of sinusitis ACT 112: Negative or not required by law. Electronically signed by: Dewayne Marsh M.D. 08/17/2023 11:02 AM
--- NOTE | 2023-08-17 12:37 | History & Physical Report ---
Date of Service August 17, 2023 Assessment & Plan (1) Sphenoid sinusitis: (2) Intractable headache: (3) Systemic lupus: (4) HTN (hypertension): Plan: Intractable Headache Sinusitis - Admit to med with tele - MRI, CT head completed and are normal - LP completed, opening pressure of 24, borderline elevated which is concerning - completed to rule out meningitis in pt with "worst headache of her life" since 08/13 and progressively worsened. - Consult neuro - Will check RVP and CSF biofire with hx of congestion, taking benadryl, possible viral meningitis. Fluid analysis looks WNL on review - Augmentin for sinusitis for now with no other resp symptoms, afebrile - Will start NSS at 80 ml/hr due to poor appetite - Continue pain control with IV tylenol and dialudid 0.5 mg Q6H prn for severe pain for now Hyperglycemia -Elevated glucose to 115 without eating today, will check A1C with am labs Lupus - Chronic, stable, taking ibuprofen 600 mg TID, did not get it today. Will hold off because of two LPs, one attempted in the ER, and then second done with radiology HTN Tachycardia - EKG reviewed, no acute findings. Likely due to anxiety and pain, will monitor - Continue lisinopril 20 mg and give now since didn't get morning meds Hx of bladder carcinoma - Chronic, stable, follow with urology - Pt was seen by PCP on 08/14, a UA was ordered but she had no urinary symptoms at that time or now. Not yet completed. Here UA appears clean DVT ppx: teds, scds CODE: FULL Dispo: From home, likely to remain in the hospital x 1-2 days History of Present Illness Chief Complaint: Headache Primary Care Provider: Danny Crystal MD This is a 63 yo F with PMHx of intactable headache, without previous history of migraine or headaches, chronic lupus taking ibuprofen 600 mg TID, HTN, who presents to the hospital with worsening headache since Saturday ( 3 days ago). At this point, she is unable to even move her head without it causing a sharp stabbing pain in the occipital region. Pt admits to having some behind the eye pressure on Saturday and thought she may have caught a cold. Pt tested for COVID with a home test twice which was negative. She had some congestion at t hat time. She had tried benadryl HS to see if she could sleep off heaache but did not find any relief. She denies any visual changes, nausea, vomiting. No other acute complaints. Allergies Allergy/AdvReac Type Severity Reaction Status Date / Time No Known Drug Allergies Allergy Mild NONE Verified 03/12/19 07:53 adhesive AdvReac Mild REDNESS,BUM Verified 03/12/19 07:53 PS Home Medications Medication Instructions Recorded Confirmed Type carboxymethylcellulose 0.5 1 drp ophthalmic (eye) DAILY PRN 08/27/18 08/17/23 History %-glycerin 0.9 % eye drops lupus s/s (Refresh Optive) diphenhydramine HCl 25 mg capsule 25 mg PO Q6 PRN Allergy Symptoms 08/27/18 08/17/23 History (Benadryl) ferrous sulfate 142 mg (45 mg 142 mg PO 3XWK 08/27/18 08/17/23 History iron) tablet,extended release (Slow Fe) ibuprofen 600 mg tablet 600 mg PO DAILY 08/27/18 08/17/23 History lisinopril 5 mg tablet 20 mg PO DAILY 08/27/18 08/17/23 History loteprednol etabonate 0.5 % eye 3 drp ophthalmic (eye) DAILY PRN 08/27/18 08/17/23 History gel drops (Lotemax) lupus s/s [id number] 1 tab PO DAILY 08/27/18 08/17/23 History tablet (Multivitamin 50 Plus tablet) terbinafine HCl 1 % topical cream 1 % topical BID PRN rash 08/27/18 08/17/23 History (Lamisil AT) triamcinolone acetonide 0.1 % 1 applic topical BID PRN Rash 08/27/18 08/17/23 History topical cream valacyclovir 500 mg tablet 500 mg PO DAILY PRN sores 08/27/18 08/17/23 History (Valtrex) Past Med/Surg History Problem List (Updated 08/17/23 @ 12:37 by Rose Muller PA-C) HTN (hypertension) Intractable headache Sphenoid sinusitis (Acute) UTI (urinary tract infection) (Acute) Headache (Acute) Medical History History of basal cell cancer BASE OF NOSE Bladder cancer Systemic lupus Surgical History History of D&C H/O breast surgery BENIGN TUMORS FROM BOTH BREASTS NO LYMPH NODES H/O oral surgery [place] teeth removed History of section History of tonsillectomy and adenoidectomy History of appendectomy H/O: hysterectomy H/O cystoscopy BLADDER SURGERY FOR CANCER H/O melanoma excision Social History Smoking Status: Never smoker Second Hand Exposure: No; Do You Dip or Chew Tobacco: No; Hx Alcohol Use: No Hx Substance Use: No Preferred Language: Nauruan Communication Ability: Effective 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 Eyes: No diplopia, no worsening or blurred vision ENT: normal hearing, no trouble swallowing, + congestion 3 days ago now resolved, + pressure behind eyes Respiratory: No cough, sputum, dyspnea at rest or on exertion Cardiovascular: No chest pain, tightness or palpitations Abdomen: No pain, nausea, vomiting, diarrhea or constipation Musculoskeletal: No joint pain, calf pain, swelling Neurologic: No weakness, numbness/tingling, or balance problems Psychiatric: No anxiety or depression Skin: No rash or itch Physical Exam Physical Exam: General: awake, alert, no apparent distress, laying flat, c/o pain with minimal movement like sitting up in bed, also with pain with turning her head to right and left. Head: Normocephalic, atraumatic ENT: PERRL, EOMI, no pharyngeal exudate, mucous membranes moist Chest: Clear to auscultation, on room air, no adventitious breath sounds Cardiac: + Sinus tachycardia, HR in low 100s at bedside, + systolic murmur, no JVD, normal peripheral pulses, good capillary refill Abdominal: NABS x 4 quadrants, soft, nondistended, nontender to palpation, no rebound or guarding Extremities: Normal inspection, no peripheral edema or erythema, calfs nontender to palpation Psych: Normal mood and affect Neuro: AAO x 3, strength intact bilaterally and rated 5/5, no motor deficits, speech is clear, no peripheral sensory deficits Results & Data Results & Data Vital Signs (Past 12 Hours) Vital Signs Temp Pulse Pulse Resp BP BP Pulse Ox 08/17/23 11:30 101 H 18 137/77 97 08/17/23 10:53 108 H 18 170/91 H 95 08/17/23 09:15 98 H 18 145/74 H 96 08/17/23 08:57 99 H 18 149/78 H 95 08/17/23 08:44 102 H 08/17/23 07:00 108 H 18 149/82 H 97 08/17/23 05:00 80 20 132/72 95 08/17/23 04:19 80 20 162/86 H 95 08/17/23 03:27 36.8 C 95 H 18 168/84 H 99 O2 Del Method 08/17/23 11:30 Room Air 08/17/23 10:53 Room Air 08/17/23 09:15 Room Air 08/17/23 08:57 Room Air 08/17/23 08:44 08/17/23 07:00 Room Air 08/17/23 05:00 Room Air 08/17/23 04:19 Room Air 08/17/23 03:27 Room Air Laboratory Results 08/17/23 Unknown Gram Stain - Final Cerebral Spinal Fluid CSF Culture - Pending 08/17/23 08/17/23 08/17/23 Unknown 05:25 04:02 WBC 8.34 RBC 4.21 Hgb 12.3 Hct 35.3 L MCV 83.8 MCH 29.2 MCHC 34.8 RDW Std Deviation 37.5 RDW Coeff of Clarisa 12.4 Plt Count 261 MPV 9.3 L Immature Gran % (Auto) 0.2 Neut % (Auto) 75.9 Lymph % (Auto) 15.3 [place] % (Auto) 7.0 Eos % (Auto) 1.2 Baso % (Auto) 0.4 Neut # (Auto) 6.33 Lymph # (Auto) 1.28 [place] # (Auto) 0.58 Eos # (Auto) 0.10 Baso # (Auto) 0.03 Immature Gran # (Auto) 0.02 Sodium 136 Potassium 3.8 Chloride 101 Carbon Dioxide 27 Anion Gap 8 BUN 17 Creatinine 0.66 Est Cr Clr Drug Dosing 81.7 Est GFR ( Amer) 109.0 Est GFR (Non-Af Amer) 94.0 BUN/Creatinine Ratio 25.8 H Glucose 115 H Calcium 9.5 Total Bilirubin 0.6 AST 16 ALT 11 Alkaline Phosphatase 48 Total Protein 7.1 Albumin 4.5 Globulin 2.6 Albumin/Globulin Ratio 1.7 Urine Color Yellow Urine Appearance Clear Urine pH 5.5 Ur Specific [place] 1.021 Urine Protein Trace H Urine Glucose (UA) Negative Urine Ketones Negative Urine Blood 2+ H Urine Nitrite Negative Urine Bilirubin Negative Urine Urobilinogen Negative Ur Leukocyte Esterase 1+ H Urine WBC (Auto) 6-10 H Urine RBC (Auto) >20 H U Hyaline Cast (Auto) 3-5 H U Epithel Cells (Auto) 0-2 Urine Bacteria (Auto) None Seen Fluid Comment CSF Appearance Clear CSF Color Colorless Xanthrochromic No xanthochromia CSF WBC 0 CSF RBC 0 CSF Cell Count Tube # 3 CSF Chemistry Tube # 1 CSF Glucose 77 H CSF Total Protein 28.2 Diagnostic Findings Lumbar Puncture 08/17/23 00:00 FLUOROSCOPIC GUIDED LUMBAR PUNCTURE CLINICAL HISTORY: Headache. PROCEDURE: The risks, benefits, and alternatives to the procedure is discussed with the patient who voiced understanding. Written informed consent was obtained. The patient was placed prone on the fluoroscopy table. The lower back was prepped and draped in the usual sterile fashion. 1% lidocaine was used for local anesthesia. A 22-gauge spinal needle was inserted into the L4-L5 interlaminar space, opening pressures were assessed, and approximately 10 cc of clear colorless cerebrospinal fluid was removed. 2 spot images are saved. The patient tolerated the procedure well. There were no immediate complications. The patient was then returned to the Emergency Department for further observation. Fluoroscopy time: 11 seconds Opening pressure: 24 cm water Ka,r: 4.76 mGy IMPRESSION: Fluoroscopic guided lumbar puncture with removal of approximately 10 cc of cerebrospinal fluid. There were no immediate complications. ACT 112: Negative or not required by law. Electronically signed by: Dewayne Marsh M.D. 08/17/2023 9:[address] 08/17/23 03:48 Exam(s): CT HEAD Without Contrast EXAM: CT Head Without Intravenous Contrast CLINICAL HISTORY: Reason for exam: Headache. TECHNIQUE: Axial computed tomography images of the head/brain without intravenous contrast. Automated exposure control was utilized for the study. A dose lowering technique was utilized adhering to the principles of ALARA. COMPARISON: No relevant prior studies available. FINDINGS: Brain: Unremarkable. No hemorrhage. No significant white matter disease. No edema. Ventricles: Unremarkable. No ventriculomegaly. Bones/joints: Unremarkable. No acute fracture. Soft tissues: Unremarkable. Sinuses: Opacified right sphenoid sinus with mild mucoperiosteal thickening. Rest of the partially visualized paranasal sinuses are clear. Mastoid air cells: Unremarkable as visualized. No mastoid effusion. IMPRESSION: 1. No evidence of acute intracranial abnormality 2. Opacified right sphenoid sinus with mild mucoperiosteal thickening. Chronic right sphenoid sinusitis. Electronically signed by: Ok Calvo M.D. 08/17/23 04:22 AM Brain MRI 08/17/23 07:09 MRI OF THE BRAIN COMBO CLINICAL HISTORY: Headache. COMPARISON STUDY: CT of the brain dated 08/17/2023. TECHNIQUE: MRI of the brain was performed utilizing various T1 and T2-weighted sequences in the axial, sagittal, and coronal planes. Contrast-enhanced sequences were acquired following the administration of 6.5 cc of Gadavist. FINDINGS: Brain parenchyma: There is nonspecific increased T2 signal within the basal ganglia bilaterally, predominantly involving the globus pallidus. This is best seen on axial T2-weighted image #13. There is minimal microangiopathic change. There is no hemorrhage or mass effect. There is no restricted diffusion typical for acute ischemia. No enhancing mass lesion is identified on the postcontrast images. [place]-white matter differentiation is preserved. No extra-axial fluid collection is seen. The cerebellar tonsils are normal in configuration. Ventricles, sulci, and cisterns: Normal in configuration. Pituitary and sella: Unremarkable. Intracranial vasculature: Normal flow voids are maintained at the skull base. Orbits: The bony orbits are grossly intact. Orbital contents are normal in appearance. Sinuses and mastoids: There is near complete opacification of the right sphenoid sinus. Moderate mucosal thickening is noted in the left sphenoid sinus, the posterior ethmoid sinuses. Metatarsals are clear. Calvarium: Unremarkable. Cervical cord: Partially visualized cervical spinal cord is normal in morphology and signal intensity. IMPRESSION: 1. There is no hemorrhage, enhancing mass, or evidence of acute ischemia. 2. There is symmetric increased T2 signal within the basal ganglia bilaterally, predominantly involving the globus pallidus. This is indeterminant (if any) clinical significance and clinical correlation will be essential. 3. Right sphenoid sinus disease as above. Correlate clinically for evidence of sinusitis ACT 112: Negative or not required by law. Electronically signed by: Dewayne Marsh M.D. 08/17/2023 11:02 AM ECG Additional Comments: Reviewed personally showing sinus tachy, No acute ST wave inversions or signs of ischemia. Code Status & VTE Plan Code Status Full code - discussed with pt at bedside VTE Prophylaxis Plan VTE Prophylaxis will be ordered: Yes Supervising Physician Co-Signing Physician Notes Pt seen and examined by me, care coordinated winter/ Nhan Muller PA-C, pls refer to her note above for further detail. Pt is a 63 yo F with chronic lupus (taking ibuprofen 600 mg TID), HTN, without previous history of migraine or headaches, who presents with intractable headache. Headache started on Saturday and is not getting any better. She report CHURCH "all over " but now mainly in R occipital region. She also reports sinus congestion at that time. She denies any visual changes, nausea, vomiting. Denies any fever , chills. In the ED underwent CT head, and MRI brain which were unremarkable except for possible sinusitis. She also had LP, and CSF bio fire tested which was also negative. We also obtained respiratory bio fire which was negative. Currently laying in bed, in no acute distress, she is lying in dark room. Patient is still complaining of headache, but somewhat improved after getting only medications. She is awake alert oriented answering appropriately. No facial asymmetry, EOMI, PERRL. She is moving extremities, speech is fluent. Heart sounds regular, lungs clear to auscultation, abdomen soft nontender nondistended. Neurology was consulted and discussed with. Already started antibiotics for sinusitis. Will also now start on prednisone, Benadryl, Compazine, magnesium. MD Charles
--- NOTE | 2023-08-17 12:44 | Emergency Department Note ---
ED Visit Note This is a 63-year-old female whose care received in signout with Dr. Padgett. Patient had a worst headache of life and has received multiple doses of pain medication, IV medication without any improvement. Patient had LP attempted by Dr. Padgett, without success. Currently pending fluoroscopy guided LP by radiology. -LP at this time does not show any xanthochromia or RBC making subarachnoid hemorrhage unlikely. -No CSF or RBCs are noted. -Patient notes mild improvement in symptoms only when laying flat and if she moves at all she notes complete return of full 11/10 pain in her head. -She also had MRI at this time that reveals no acute intracranial process aside from nonspecific enhancement of the globus pallidus -Due to patient's persistent symptoms, will admit for intractable headache/migraine. -Care discussed with franco Almonteist PEDRO -Patient accepted under Dr. Soto .
--- NOTE | 2023-08-17 13:15 | Electrocardiogram Report ---
Test Reason : Blood Pressure : / mmHG Vent. Rate : 104 BPM Atrial Rate : 104 BPM P-R Int : 174 ms QRS Dur : 094 ms QT Int : 338 ms P-R-T Axes : 070 047 062 degrees QTc Int : 444 ms Sinus tachycardia Possible Left atrial enlargement Borderline ECG When compared with ECG of 04-JAN-2017 09:57, Vent. rate has increased BY 34 BPM QT has lengthened Confirmed by Toño Conteh ([id number]) on 08/17/2023 1:15:02 PM Referred By: REFERRED SELF Confirmed By:Toño Conteh
[2023-08-17 14:28] LABS: Estimated Average Glucose 103 mg/dl; Hemoglobin A1C 5.2 % (4.5-5.6)
[2023-08-17 14:54] LABS: Cryptococcus neoformans/ga PCR Not Detected (NotDetected); Cytomegalovirus PCR Not Detected (NotDetected); Enterovirus PCR Not Detected (NotDetected); Escherichia coli K1 PCR Not Detected (NotDetected); Haemophilius influenzae PCR Not Detected (NotDetected); Herpes Simplex Virus 1 PCR Not Detected (NotDetected); Herpes Simplex Virus 2 PCR Not Detected (NotDetected); Human Herpes Virus 6 PCR Not Detected (NotDetected); Human Parechovirus PCR Not Detected (NotDetected); Listeria monocytogenes PCR Not Detected (NotDetected); Neisseria meningitidis PCR Not Detected (NotDetected); Streptococcus agalactiae PCR Not Detected (NotDetected); Streptococcus pneumoniae PCR Not Detected (NotDetected); Varicella Zoster Virus PCR Not Detected (NotDetected)
[2023-08-17] MEDS ORDERED: ARTIFICIAL TEARS OP PRN (15:28)
[2023-08-17] MEDS: ONDANSETRON INJ 2 MG/ML 2 ML VIAL IV PRN (15:39)
[2023-08-17] MEDS: SODIUM CHLORIDE 0.9% 1,000 ML IV SCH (15:40)
[2023-08-17] MEDS: HYDROmorphone INJ 0.5 MG/0.5 ML SYR IV PRN (15:40)
[2023-08-17] MEDS: ACETAMINOPHEN 1,000 MG/100 ML VIAL IV STA (15:40)
--- NOTE | 2023-08-17 16:30 | Neurology Consultation ---
Date of Consultation August 17, 2023 Assessment & Plan (1) Intractable headache: Marissa Burgos is a 63 yo F presenting with a severe headache, likely secondary to sinusitis as her MRI and LP are both normal. Slightly elevated opening pressure secondary to pain. No structural cause otherwise identified. The R occipital region pain may be secondary to occipital neuralgia though treatment remains the same. -- Agree with abx for sinusitis -- Prednisone 60mg to 10mg over 12 days -- Consider toradol, benadryl, compazine, IV magnesium every 6-8 hours -- Avoid narcotics -- Consider neurology follow-up for occipital nerve blocks if pain persists -- Otherwise plan to work toward discharge, we will sign off Telehealth Consultation Telehealth Information Telehealth Information: I performed this visit using a real-time telehealth connection between my location and the patients location ([facility]). After connecting through interactive tele-video, patient was identified by name and date of and/or wristband check.Patient (or authorized healthcare product support sales representative) was informed that this was a telemedicine visit and it was being conducted confidentially over secure lines. My office door was closed and no one else was present in the room with me.Patient (or authorized healthcare product support sales representative) provided consent to proceed with the visit, expressed an understanding of privacy and security of the telemedicine visit, and gave permission to have a hospital product support sales representative in the room in order to assist with the visit and to conduct portions of the visit, as needed. I informed the patient (or authorized healthcare product support sales representative) that I reviewed their record and presented the opportunity for them to ask any questions regarding the visit today. The patient agreed to participate. History of Present Illness Reason for Consultation: Headache Requesting Physician: Dr. Soto Attending Physician: Reuben Soto MD History of Present Illness Marissa Burgos is a 63 yo F presenting with a severe headache over the past 3 days. She decided to come in last night when the headache became unbearable. She reports pain all over her head, worse with movement but not specifically positional. She does describe a more severe stabbing pain in the R occipital region. No hx of migraine or frequent headaches. No vision changes but has pressure behind the eyes. No numbness, no focal weakness. She did hit the L side of her face in May but had a negative workup at that time, no concussion. No recent fevers, not on any immunosuppressants for her Lupus dx. Allergies Allergy/AdvReac Type Severity Reaction Status Date / Time No Known Drug Allergies Allergy Mild NONE Verified 03/12/19 07:53 adhesive AdvReac Mild REDNESS,BUM Verified 03/12/19 07:53 PS Home Medications Medication Instructions Recorded Confirmed Type carboxymethylcellulose 0.5 1 drp ophthalmic (eye) DAILY PRN 08/27/18 08/17/23 History %-glycerin 0.9 % eye drops lupus s/s (Refresh Optive) diphenhydramine HCl 25 mg capsule 25 mg PO Q6 PRN Allergy Symptoms 08/27/18 08/17/23 History (Benadryl) ferrous sulfate 142 mg (45 mg 142 mg PO 3XWK 08/27/18 08/17/23 History iron) tablet,extended release (Slow Fe) ibuprofen 600 mg tablet 600 mg PO DAILY 08/27/18 08/17/23 History lisinopril 5 mg tablet 20 mg PO DAILY 08/27/18 08/17/23 History loteprednol etabonate 0.5 % eye 3 drp ophthalmic (eye) DAILY PRN 08/27/18 History gel drops (Lotemax) lupus s/s [id number] 1 tab PO DAILY 08/27/18 08/17/23 History tablet (Multivitamin 50 Plus tablet) terbinafine HCl 1 % topical cream 1 % topical BID PRN rash 08/27/18 08/17/23 History (Lamisil AT) triamcinolone acetonide 0.1 % 1 applic topical BID PRN Rash 08/27/18 08/17/23 History topical cream valacyclovir 500 mg tablet 500 mg PO DAILY PRN sores 08/27/18 08/17/23 History (Valtrex) Patient History Medical History History of basal cell cancer BASE OF NOSE Bladder cancer Systemic lupus Surgical History History of D&C H/O breast surgery BENIGN TUMORS FROM BOTH BREASTS NO LYMPH NODES H/O oral surgery [place] teeth removed History of section History of tonsillectomy and adenoidectomy History of appendectomy H/O: hysterectomy H/O cystoscopy BLADDER SURGERY FOR CANCER H/O melanoma excision Social History Smoking Status: Never smoker Second Hand Exposure: No; Do You Dip or Chew Tobacco: No; Hx Alcohol Use: No Hx Substance Use: No Preferred Language: Yoruba Communication Ability: Effective Bi Manager Required: No Beliefs That Will Affect Care: None Current Living Situation: Spouse Current Living Situation Comment: Lives at home with who is able to help if needed Other Information That Helps Us Care for You: No Feels Safe at Home: Yes Safety Concerns: Feels Safe At This Time Assistive Devices: Glasses Review of Systems +headache Physical Exam Neurological Examination: Mental Status: Awake and alert. Oriented to person, place, and time. Fluent. Comprehension intact. Affect appropriate. Cranial Nerves: II: Reads NIHSS cards, III/IV/: Versions intact without nystagmus, no gaze preference. V: Facial sensation symmetric to light touch VII: Facial expression symmetric VIII: Hearing intact to voice IX/X: Palate elevates symmetrically XI: Shoulder shrug symmetric XII: Tongue midline Motor: Strength was symmetric and antigravity throughout. Pronator drift was absent. There were no abnormal movements. Reflexes: Unable to assess over telemedicine Results & Data Vital Signs (Past 12 Hours) Vital Signs Temp Pulse Pulse Resp BP Pulse Ox O2 Del Method 08/17/23 15:23 37.4 C 108 H 20 157/81 H 95 Room Air 08/17/23 12:42 102 H 08/17/23 11:30 101 H 18 137/77 97 Room Air 08/17/23 10:53 108 H 18 170/91 H 95 Room Air 08/17/23 09:15 98 H 18 145/74 H 96 Room Air 08/17/23 08:57 99 H 18 149/78 H 95 Room Air 08/17/23 08:44 102 H 08/17/23 07:00 108 H 18 149/82 H 97 Room Air 08/17/23 05:00 80 20 132/72 95 Room Air Laboratory Results Abnormal lab results 08/17/23 08/17/23 08/17/23 Range/Units 04:02 05:25 Unknown Hct 35.3 L (37.0-47.0) % MPV 9.3 L (9.4-12.4) fL BUN/Creatinine Ratio 25.8 H (10-20) Glucose 115 H (70-99(Fasting)) mg/dl Urine Protein Trace H (Negative) Urine Blood 2+ H (Negative) Ur Leukocyte Esterase 1+ H (Negative) Urine WBC (Auto) 6-10 H (0-5) /hpf Urine RBC (Auto) >20 H (0-2) /hpf U Hyaline Cast (Auto) 3-5 H (0-2) /lpf CSF Glucose 77 H (40-70) mg/dl Diagnostic Findings MRI brain with and without contrast - unremarkable
[2023-08-17 16:59] LABS: Adenovirus PCR Not Detected (NotDetected); Bordetella parapertussis PCR Not Detected (NotDetected); Bordetella pertussis PCR Not Detected (NotDetected); Chlamydia pneumoniae PCR Not Detected (NotDetected); Coronavirus 229E PCR Not Detected (NotDetected); Coronavirus CoV-2 (COVID19)PCR Not Detected (NotDetected); Coronavirus HKU1 PCR Not Detected (NotDetected); Coronavirus NL63 PCR Not Detected (NotDetected); Coronavirus OC43PCR Not Detected (NotDetected); Human Metapneumovirus PCR Not Detected (NotDetected); Influenza A PCR Not Detected (NotDetected); Influenza B PCR Not Detected (NotDetected); Mycoplasma pneumoniae PCR Not Detected (NotDetected); Parainfluenza Virus 1 PCR Not Detected (NotDetected); Parainfluenza Virus 2 PCR Not Detected (NotDetected); Parainfluenza Virus 3 PCR Not Detected (NotDetected); Parainfluenza Virus 4 PCR Not Detected (NotDetected); Respiratory Syncytial VirusPCR Not Detected (NotDetected); Rhinovirus/Enterovirus PCR Not Detected (NotDetected)
[2023-08-17 17:30] LABS: Magnesium 1.9 mg/dl (1.7-2.4)
[2023-08-17] MEDS: predniSONE 20 MG TAB PO SCH (18:03)
[2023-08-17] MEDS: lisinopril 20 MG TAB PO SCH (18:03)
[2023-08-17] MEDS: diphenhydrAMINE 50 MG/ML VIAL IV SCH (18:04)
[2023-08-17] MEDS: PANTOprazole 40 MG TAB PO SCH (18:04)
[2023-08-17] MEDS: ADVANCED PROBIOTIC 625 MG CAPSULE PO SCH (18:04)
[2023-08-17] MEDS: AMOXICILLIN/CLAVULANATE 875 MG TAB PO SCH (18:42)
[2023-08-17] MEDS: MAGNESIUM SULFATE / D5W 1 GM/100 ML BAG IV ONE (19:36)
[2023-08-18] MEDS: ACETAMINOPHEN 1,000 MG/100 ML VIAL IV PRN (06:16)
[2023-08-18 06:28] LABS: Hematocrit (blood only) 33.1 % (37.0-47.0); Hemoglobin 11.3 g/dl (12.0-16.0); Mean Corpuscular Hemoglobin 29.3 pg (25.0-34.0); Mean Corpuscular Hgb Conc 34.1 g/dL (32.0-36.0); Mean Corpuscular Volume 85.8 fL (80.0-100.0); Mean Platelet Volume 9.1 fL (9.4-12.4); Platelet Count 257 K/uL (130-400); RDW Coefficient of Variation 12.4 % (11.5-14.5); RDW Standard Deviation 39.1 fL (36.4-46.3); Red Blood Count 3.86 M/uL (4.20-5.40); White Blood Count 13.05 K/ul (4.8-10.8)
[2023-08-18] MEDS: PROCHLORPERAZINE 10 MG in SYRINGE 8 ML IV PRN (06:30)
[2023-08-18 06:52] LABS: BUN Creatinine Ratio 18.2 (10-20); Calcium 8.6 mg/dl (8.6-10.3); Est GFR (African American) 115.7 ml/min; Est GFR (Non-African American) 99.8 ml/min; Magnesium 2.2 mg/dl (1.7-2.4); Phosphorus 2.7 mg/dl (2.5-4.9); Potassium 4.2 mmol/L (3.5-5.1)
[2023-08-18] MEDS: MULTIVITAMIN TAB PO SCH (08:16)
--- NOTE | 2023-08-18 09:23 | Hospitalist Progress Note ---
Date of Service August 18, 2023 Assessment & Plan (1) Sphenoid sinusitis: (2) Intractable headache: (3) Systemic lupus: (4) HTN (hypertension): Plan: Intractable Headache Sinusitis - MRI, CT head completed and are normal (but CT shows sinusitis) - LP completed, opening pressure of 24, CSF studies normal and biofire negative - RVP negative - reports congestion for several days - started Augmentin for sinusitis - Neurology consulted - recommended starting steroid, cont. abx, also for CHURCH use compazine, benadryl, mag, toradol - Pt feels improved today Hyperglycemia -on admission Elevated glucose to 115 without eating, checked A1C 5.2% Lupus - Chronic, stable, taking ibuprofen 600 mg TID HTN Tachycardia - EKG reviewed, no acute findings. Likely due to anxiety and pain, will monitor - Continue lisinopril 20 mg and give now since didn't get morning meds BP and HR now normal Hx of bladder carcinoma - Chronic, stable, follows with urology - Pt was seen by PCP on 08/14, a UA was ordered but she had no urinary symptoms at that time or now. Not yet completed. Here UA appears clean DVT ppx: tedshonda, scds CODE: FULL Dispo: From home, likely to remain in the hospital x 1-2 days Admission and Anticipated Discharge Date Admission Date: August 17, 2023 Subjective Pt seen in follow up of severe CHURCH This AM says that the combination of all the meds she received yesterday PM made her feel a lot better and she was able to open her eyes, move and even eat her dinner But then later she started to have CHURCH again She received combination of meds this AM and currently feels fairly well but feels she wants to continue to be monitored to see if it returns back again No fever, chills, chest pain, shortness of breath, abd. pain Review of Systems Review of Systems: All systems reviewed & are unremarkable except as noted in Subjective Physical Exam Physical Exam: General: WD/WN F in NAD Head: Normocephalic, atraumatic ENT: PERRL, EOMI Chest: Clear to auscultation, on room air, no adventitious breath sounds Cardiac: RRR Abdominal:soft, nondistended, nontender to palpation, + bowel sounds Extremities: Normal inspection, no peripheral edema or erythema Psych: Normal mood and affect Neuro: AAO x 3, strength intact bilaterally and rated 5/5, no motor deficits, speech is clear, no peripheral sensory deficits Results & Data Results & Data Vital Signs (Past 12 Hours) Vital Signs Temp Pulse Pulse Resp BP Pulse Ox O2 Del Method 08/18/23 07:50 36.6 C 71 17 101/54 L 95 Room Air 08/18/23 07:43 81 08/18/23 03:02 36.8 C 79 16 101/62 93 Room Air 08/17/23 23:18 85 08/17/23 23:11 36.7 C 91 H 18 122/69 93 Room Air Laboratory Results 08/18/23 08/17/23 08/17/23 Range/Units 06:09 Unknown 16:04 WBC 13.05 H (4.8-10.8) K/ul RBC 3.86 L (4.20-5.40) M/uL Hgb 11.3 L (12.0-16.0) g/dl Hct 33.1 L (37.0-47.0) % MCV 85.8 (80.0-100.0) fL MCH 29.3 (25.0-34.0) pg MCHC 34.1 (32.0-36.0) g/dL RDW Std Deviation 39.1 (36.4-46.3) fL RDW Coeff of Clarisa 12.4 (11.5-14.5) % Plt Count 257 (130-400) K/uL MPV 9.1 L (9.4-12.4) fL Sodium 136 (136-145) mmol/L Potassium 4.2 (3.5-5.1) mmol/L Chloride 105 (98-107) mmol/L Carbon Dioxide 25 (21-32) mmol/L Anion Gap 6 (3-11) BUN 10 (6-23) mg/dl Creatinine 0.55 L (0.6-1.2) mg/dl Est Cr Clr Drug Dosing 98.0 ml/min Est GFR ( Amer) 115.7 ml/min Est GFR (Non-Af Amer) 99.8 ml/min BUN/Creatinine Ratio 18.2 (10-20) Glucose 147 H (70-99(Fasting)) mg/dl Estimat Average Glucose mg/dl Hemoglobin A1c (4.5-5.6) % Calcium 8.6 (8.6-10.3) mg/dl Phosphorus 2.7 (2.5-4.9) mg/dl Magnesium 2.2 (1.7-2.4) mg/dl CSF C.neoform/gat PCR Not Detected (NotDetected) CSF CMV DNA (PCR) Not Detected (NotDetected) CSF Enterovirus (PCR) Not Detected (NotDetected) CSF E. coli K1 (PCR) Not Detected (NotDetected) CSF H. influenzae (PCR) Not Detected (NotDetected) CSF HSV I (PCR) Not Detected (NotDetected) CSF HSV II (PCR) Not Detected (NotDetected) CSF HHV 6 (PCR) Not Detected (NotDetected) CSF L.monocytogenes PCR Not Detected (NotDetected) CSF N. meningitidis PCR Not Detected (NotDetected) CSF Parechovirus (PCR) Not Detected (NotDetected) CSF S. agalactiae (PCR) Not Detected (NotDetected) CSF S. pneumoniae (PCR) Not Detected (NotDetected) CSF VZV DNA (PCR) Not Detected (NotDetected) Adenovirus (PCR) Not Detected (NotDetected) B. pertussis DNA (PCR) Not Detected (NotDetected) B.parapertussis DNA PCR Not Detected (NotDetected) C. pneumoniae DNA (PCR) Not Detected (NotDetected) Coronavirus OC43 (PCR) Not Detected (NotDetected) Coronavirus HKU1 (PCR) Not Detected (NotDetected) Coronavirus 229E (PCR) Not Detected (NotDetected) SARS-CoV-2 (PCR) Not Detected (NotDetected) Coronavirus NL63 (PCR) Not Detected (NotDetected) Human Metapneumovir PCR Not Detected (NotDetected) Influenza Type A (PCR) Not Detected (NotDetected) Influenza Type B (PCR) Not Detected (NotDetected) M. pneumoniae (PCR) Not Detected (NotDetected) Parainfluenza 1 (PCR) Not Detected (NotDetected) Parainfluenza 2 (PCR) Not Detected (NotDetected) Parainfluenza 3 (PCR) Not Detected (NotDetected) Parainfluenza 4 (PCR) Not Detected (NotDetected) RSV (PCR) Not Detected (NotDetected) Entero/Rhino (PCR) Not Detected (NotDetected) 08/17/23 Range/Units 04:02 WBC (4.8-10.8) K/ul RBC (4.20-5.40) M/uL Hgb (12.0-16.0) g/dl Hct (37.0-47.0) % MCV (80.0-100.0) fL MCH (25.0-34.0) pg MCHC (32.0-36.0) g/dL RDW Std Deviation (36.4-46.3) fL RDW Coeff of Clarisa (11.5-14.5) % Plt Count (130-400) K/uL MPV (9.4-12.4) fL Sodium (136-145) mmol/L Potassium (3.5-5.1) mmol/L Chloride (98-107) mmol/L Carbon Dioxide (21-32) mmol/L Anion Gap (3-11) BUN (6-23) mg/dl Creatinine (0.6-1.2) mg/dl Est Cr Clr Drug Dosing ml/min Est GFR ( Amer) ml/min Est GFR (Non-Af Amer) ml/min BUN/Creatinine Ratio (10-20) Glucose (70-99(Fasting)) mg/dl Estimat Average Glucose 103 mg/dl Hemoglobin A1c 5.2 (4.5-5.6) % Calcium (8.6-10.3) mg/dl Phosphorus (2.5-4.9) mg/dl Magnesium 1.9 (1.7-2.4) mg/dl CSF C.neoform/gat PCR (NotDetected) CSF CMV DNA (PCR) (NotDetected) CSF Enterovirus (PCR) (NotDetected) CSF E. coli K1 (PCR) (NotDetected) CSF H. influenzae (PCR) (NotDetected) CSF HSV I (PCR) (NotDetected) CSF HSV II (PCR) (NotDetected) CSF HHV 6 (PCR) (NotDetected) CSF L.monocytogenes PCR (NotDetected) CSF N. meningitidis PCR (NotDetected) CSF Parechovirus (PCR) (NotDetected) CSF S. agalactiae (PCR) (NotDetected) CSF S. pneumoniae (PCR) (NotDetected) CSF VZV DNA (PCR) (NotDetected) Adenovirus (PCR) (NotDetected) B. pertussis DNA (PCR) (NotDetected) B.parapertussis DNA PCR (NotDetected) C. pneumoniae DNA (PCR) (NotDetected) Coronavirus OC43 (PCR) (NotDetected) Coronavirus HKU1 (PCR) (NotDetected) Coronavirus 229E (PCR) (NotDetected) SARS-CoV-2 (PCR) (NotDetected) Coronavirus NL63 (PCR) (NotDetected) Human Metapneumovir PCR (NotDetected) Influenza Type A (PCR) (NotDetected) Influenza Type B (PCR) (NotDetected) M. pneumoniae (PCR) (NotDetected) Parainfluenza 1 (PCR) (NotDetected) Parainfluenza 2 (PCR) (NotDetected) Parainfluenza 3 (PCR) (NotDetected) Parainfluenza 4 (PCR) (NotDetected) RSV (PCR) (NotDetected) Entero/Rhino (PCR) (NotDetected) Medications Administered Current Inpatient Medications Acetaminophen (Acetaminophen 325 Mg Tab) 650 mg PO Q4H PRN PRN Reason: Fever Stop: 09/16/23 15:19 Amoxicillin/Clavulanate Potassium (Amoxicillin/Clavulanate 875 Mg Tab) 1 tab PO BIDM COUNTS INCLUDE 234 BEDS AT THE [facility]; Protocol Stop: 08/27/23 16:59 Last Admin: 08/18/23 08:16 Dose: 1 tab Artificial Tears (Artificial Tears) 1 drops OP QID PRN PRN Reason: Dryness Stop: 09/16/23 15:27 Diphenhydramine HCl (Diphenhydramine 50 Mg/Ml Vial) 25 mg IV Q6 COUNTS INCLUDE 234 BEDS AT THE [facility] Stop: 09/16/23 17:29 Last Admin: 08/18/23 06:15 Dose: 25 mg Ferrous Sulfate (Ferrous Sulfate 325 Mg Tab) 325 mg PO MoWeFr@0900 COUNTS INCLUDE 234 BEDS AT THE [facility] Stop: 09/18/23 08:59 Hydromorphone HCl (Hydromorphone Inj 0.5 Mg/0.5 Ml Syr) 0.5 mg IV Q6H PRN PRN Reason: Severe Pain (Scale 7, 8, 9,10) Stop: 08/31/23 13:52 Last Admin: 08/18/23 06:16 Dose: 0.5 mg Sodium Chloride (Nss) 1,000 mls @ 80 mls/hr IV .[id number] COUNTS INCLUDE 234 BEDS AT THE [facility] Stop: 08/18/23 13:59 Last Admin: 08/18/23 02:47 Dose: 80 mls/hr Acetaminophen (Ofirmev) 1,000 mg in 100 mls @ 400 mls/hr IV Q8H PRN PRN Reason: Headache or MILD/MODERATE Pain Stop: 08/20/23 13:52 Last Infusion: 08/18/23 06:43 Dose: Infused Prochlorperazine 10 mg/ (Syringe) 10 mls @ 5 mls/min IV Q6H PRN PRN Reason: Headache, nausea Stop: 09/16/23 17:12 Last Admin: 08/18/23 06:30 Dose: 5 mls/min Lactobacillus Acidophilus (Advanced Probiotic 625 Mg Capsule) 1,250 mg PO DAILY COUNTS INCLUDE 234 BEDS AT THE [facility] Stop: 09/16/23 17:44 Last Admin: 08/18/23 08:16 Dose: 1,250 mg Lisinopril (Lisinopril 20 Mg Tab) 20 mg PO DAILY COUNTS INCLUDE 234 BEDS AT THE [facility] Stop: 09/16/23 15:19 Last Admin: 08/18/23 08:16 Dose: 20 mg Miscellaneous (Loteprednol Etabonate [Lotemax] 0.5 % - Order Awaiting Action) 1 each N/A QS COUNTS INCLUDE 234 BEDS AT THE [facility] Stop: 09/16/23 15:59 Last Admin: 08/18/23 08:11 Dose: Not Given Multivitamins (Multivitamin Tab) 1 tab PO QAM COUNTS INCLUDE 234 BEDS AT THE [facility] Stop: 09/17/23 08:59 Last Admin: 08/18/23 08:16 Dose: 1 tab Ondansetron HCl (Ondansetron Inj 2 Mg/Ml 2 Ml Vial) 4 mg IV Q4H PRN PRN Reason: Nausea And Vomiting Stop: 09/16/23 15:19 Last Admin: 08/17/23 15:39 Dose: 4 mg Pantoprazole Sodium (Pantoprazole 40 Mg Tab) 40 mg PO [facility] Stop: 09/16/23 17:44 Last Admin: 08/18/23 08:17 Dose: 40 mg Prednisone (Prednisone 20 Mg Tab) 60 mg PO [facility] Stop: 09/16/23 17:14 Last Admin: 08/18/23 08:17 Dose: 60 mg
[2023-08-18 11:46] LABS: A calco-baum cmplx NotReported Not Detected (NotDetected); Bact fragilis Not Reported Not Detected (NotDetected); Blood Culture Id Panel See PCR Comment (NotDetected); C auris Not Reported Not Detected (NotDetected); Calbicans Not Reported Not Detected (NotDetected); Candida glabrata Not Reported Not Detected (NotDetected); Candida krusei Not Reported Not Detected (NotDetected); Cneoformans/gatti Not Reported Not Detected (NotDetected); Cparapsilosis Not Reported Not Detected (NotDetected); E cloacae compx Not Reported Not Detected (NotDetected); Efaecalis Not Reported Not Detected (NotDetected); Efaecium Not Reported Not Detected (NotDetected); Enterobacterales Not Reported Not Detected (NotDetected); Escherichia coli Not Reported Not Detected (NotDetected); H influenzae Not Reported Not Detected (NotDetected); K aerogenes Not Reported Not Detected (NotDetected); Koxytoca Not Reported Not Detected (NotDetected); Kpneumoniae grp Not Reported Not Detected (NotDetected); Lmonocyt Not Reported Not Detected (NotDetected); N meningitidis Not Reported Not Detected (NotDetected); P aeruginosa Not Reported Not Detected (NotDetected); Proteus spp Not Reported Not Detected (NotDetected); Salmonella spp Not Reported Not Detected (NotDetected); Smarcescens Not Reported Not Detected (NotDetected); Staph lugdunensis Not Reported Not Detected (NotDetected); Staph spp. Not Reported Not Detected (NotDetected); Staphaureus Not Reported Not Detected (NotDetected); Staphepi Not Reported Not Detected (NotDetected); Stenmaltophilia Not Reported Not Detected (NotDetected); Strep agal(GrpB) Not Reported Not Detected (NotDetected); Strep pneum Not Reported Not Detected (NotDetected); Strep pyog (GrpA) Not Reported Not Detected (NotDetected); Strep spp Not Reported DETECTED (NotDetected)
[2023-08-18 11:52] LABS: Streptococcus spp DETECTED (NotDetected)
[2023-08-18] MEDS ORDERED: VANCOMYCIN CONSULT ACTIVE PRN (12:10)
[2023-08-18] MEDS ORDERED: VANCOMYCIN HCL 1,000 MG in SODIUM CHLORIDE 0.9% 250 ML IV SCH (12:15)
[2023-08-18] MEDS: VANCOMYCIN HCL 1,500 MG in SODIUM CHLORIDE 0.9% 500 ML IV ONE (13:07)
--- NOTE | 2023-08-18 13:43 | Pharmacy Report ---
Pharmacy PK ABX Note - Date of Service August 18, 2023 - Assessment and Plan Assessment 63 year old F receiving Vancomycin for treatment of bacteremia. * Day #1 of antimicrobial therapy. * Afebrile. White count of 13k. SCr 0.55 mg/dL. * Blood cultures growing Strep species. CSF and repeat BCx pending. * Also on Augmentin for pulm coverage. Plan Vancomycin * Loading dose: 1500 mg IV x 1 * Maintenance dose: 1250 mg IV every 12 hours * Regimen is predicted to achieve target AUC/DENNIS of 400-600 mg/L.hr * Trough level ordered for: 08/20/23 Pharmacy will continue to follow and will adjust dose/frequency as necessary. Thank you. Pharmacy has transitioned to AUC monitoring for vancomycin. AUC/DENNIS is the preferred PK/PD target and is associated with decreased risk of nephrotoxicity compared to traditional trough targets.
[2023-08-18] MEDS: ACETAMINOPHEN 325 MG TAB PO PRN (18:07)
[2023-08-18] MEDS: VANCOMYCIN HCL 1,250 MG in SODIUM CHLORIDE 0.9% 250 ML IV SCH (23:58)
[2023-08-19] MEDS: HYDROmorphone INJ 0.5 MG/0.5 ML SYR IV PRN (05:44)
[2023-08-19 06:31] LABS: Hematocrit (blood only) 31.8 % (37.0-47.0); Hemoglobin 10.8 g/dl (12.0-16.0); Mean Corpuscular Hemoglobin 29.1 pg (25.0-34.0); Mean Corpuscular Volume 85.7 fL (80.0-100.0); Mean Platelet Volume 9.1 fL (9.4-12.4); Platelet Count 256 K/uL (130-400); RDW Coefficient of Variation 12.4 % (11.5-14.5); RDW Standard Deviation 38.5 fL (36.4-46.3); Red Blood Count 3.71 M/uL (4.20-5.40); White Blood Count 14.08 K/ul (4.8-10.8)
[2023-08-19 06:54] LABS: BUN Creatinine Ratio 20.3 (10-20); Calcium 8.5 mg/dl (8.6-10.3); Creatinine Clr Calc Pharmacy 84.2 ml/min; Est GFR (African American) 110.1 ml/min; Magnesium 2.1 mg/dl (1.7-2.4); Phosphorus 1.9 mg/dl (2.5-4.9); Potassium 3.8 mmol/L (3.5-5.1)
--- NOTE | 2023-08-19 07:45 | Hospitalist Progress Note ---
Date of Service August 19, 2023 Assessment & Plan (1) Sphenoid sinusitis: (2) Intractable headache: (3) Systemic lupus: (4) HTN (hypertension): Plan: Intractable Headache Sinusitis - MRI, CT head completed and are normal (but CT shows sinusitis) - LP completed, opening pressure of 24, CSF studies normal and biofire negative - RVP negative - reports congestion for several days - started Augmentin for sinusitis - Neurology consulted - recommended starting steroid, cont. abx, also for CHURCH use compazine, benadryl, mag, toradol - Pt feels improved, CHURCH improved Bacteremia blood cultx posit. for strep repeat blood cultx pending started augmentin initially for sinusitis - currently on iv vanco for gram posit. bacteremia - pt has leukocytosis - but leukocytosis noted AFTER started steroid, not on admission (steroid started for CHURCH per neuro recs) - will further discuss blood cultx results with ID Hyperglycemia -on admission Elevated glucose to 115 without eating, checked A1C 5.2% Lupus - Chronic, stable, taking ibuprofen 600 mg TID HTN Tachycardia - EKG reviewed, no acute findings. Likely due to anxiety and pain, will monitor - Continue lisinopril 20 mg and give now since didn't get morning meds BP and HR now normal Hx of bladder carcinoma - Chronic, stable, follows with urology - Pt was seen by PCP on 08/14, a UA was ordered but she had no urinary symptoms at that time or now. Not yet completed. Here UA appears clean DVT ppx: teds, scds CODE: FULL Dispo: From home, likely to remain in the hospital x 1-2 days Admission and Anticipated Discharge Date Admission Date: August 17, 2023 Subjective Pt seen in follow up of severe CHURCH CHURCH is much improved but still had significant CHURCH at night No fever, chills, chest pain, shortness of breath, abd. pain Blood cultx positive for strep at the bedside as well and updated. Review of Systems Review of Systems: All systems reviewed & are unremarkable except as noted in Subjective Physical Exam Physical Exam: General: WD/WN F in NAD Head: Normocephalic, atraumatic ENT: PERRL, EOMI Chest: Clear to auscultation, on room air, no adventitious breath sounds Cardiac: RRR Abdominal:soft, nondistended, nontender to palpation, + bowel sounds Extremities: Normal inspection, no peripheral edema or erythema Psych: Normal mood and affect Neuro: AAO x 3, strength intact bilaterally and rated 5/5, no motor deficits, speech is clear, no peripheral sensory deficits Results & Data Results & Data Vital Signs (Past 12 Hours) Vital Signs Temp Pulse Pulse Resp BP BP Pulse Ox 08/19/23 07:29 36.4 C L 84 18 171/94 H 97 08/19/23 07:00 87 08/19/23 03:41 36.5 C 82 16 133/72 96 08/19/23 00:20 84 08/18/23 23:19 36.6 C 85 18 139/76 95 O2 Del Method 08/19/23 07:29 Room Air 08/19/23 07:00 08/19/23 03:41 Room Air 08/19/23 00:20 08/18/23 23:19 Room Air Laboratory Results 08/19/23 08/17/23 Range/Units 06:03 12:44 WBC 14.08 H (4.8-10.8) K/ul RBC 3.71 L (4.20-5.40) M/uL Hgb 10.8 L (12.0-16.0) g/dl Hct 31.8 L (37.0-47.0) % MCV 85.7 (80.0-100.0) fL MCH 29.1 (25.0-34.0) pg MCHC 34.0 (32.0-36.0) g/dL RDW Std Deviation 38.5 (36.4-46.3) fL RDW Coeff of Clarisa 12.4 (11.5-14.5) % Plt Count 256 (130-400) K/uL MPV 9.1 L (9.4-12.4) fL Sodium 139 (136-145) mmol/L Potassium 3.8 (3.5-5.1) mmol/L Chloride 106 (98-107) mmol/L Carbon Dioxide 27 (21-32) mmol/L Anion Gap 6 (3-11) BUN 13 (6-23) mg/dl Creatinine 0.64 (0.6-1.2) mg/dl Est Cr Clr Drug Dosing 84.2 ml/min Est GFR ( Amer) 110.1 ml/min Est GFR (Non-Af Amer) 95.0 ml/min BUN/Creatinine Ratio 20.3 H (10-20) Glucose 97 (70-99(Fasting)) mg/dl Calcium 8.5 L (8.6-10.3) mg/dl Phosphorus 1.9 L (2.5-4.9) mg/dl Magnesium 2.1 (1.7-2.4) mg/dl Streptococcus sp PCR DETECTED A (NotDetected) Bld Cult ID Panel PCR See PCR Comment (NotDetected) Medications Administered Current Inpatient Medications Acetaminophen (Acetaminophen 325 Mg Tab) 650 mg PO Q4H PRN PRN Reason: Fever Stop: 09/16/23 15:19 Last Admin: 08/19/23 01:34 Dose: 650 mg Amoxicillin/Clavulanate Potassium (Amoxicillin/Clavulanate 875 Mg Tab) 1 tab PO BIDM [facility]; Protocol Stop: 08/27/23 16:59 Last Admin: 08/18/23 18:02 Dose: 1 tab Artificial Tears (Artificial Tears) 1 drops OP QID PRN PRN Reason: Dryness Stop: 09/16/23 15:27 Diphenhydramine HCl (Diphenhydramine 50 Mg/Ml Vial) 25 mg IV Q6 [facility] Stop: 09/16/23 17:29 Last Admin: 08/19/23 05:36 Dose: 25 mg Ferrous Sulfate (Ferrous Sulfate 325 Mg Tab) 325 mg PO MoWeFr@0900 [facility] Stop: 09/18/23 08:59 Hydromorphone HCl (Hydromorphone Inj 0.5 Mg/0.5 Ml Syr) 0.25 mg IV Q6H PRN PRN Reason: Severe Pain (Scale 7, 8, 9,10) Stop: 08/31/23 13:52 Last Admin: 08/19/23 05:44 Dose: 0.25 mg Acetaminophen (Ofirmev) 1,000 mg in 100 mls @ 400 mls/hr IV Q8H PRN PRN Reason: Headache or MILD/MODERATE Pain Stop: 08/20/23 13:52 Last Infusion: 08/18/23 06:43 Dose: Infused Prochlorperazine 10 mg/ (Syringe) 10 mls @ 5 mls/min IV Q6H PRN PRN Reason: Headache, nausea Stop: 09/16/23 17:12 Last Admin: 08/18/23 06:30 Dose: 5 mls/min Vancomycin HCl 1,250 mg/ (Sodium Chloride) 275 mls @ 200 mls/hr IV Q12H [facility] Stop: 09/02/23 00:00 Last Infusion: 08/19/23 02:35 Dose: Infused Lactobacillus Acidophilus (Advanced Probiotic 625 Mg Capsule) 1,250 mg PO DAILY [facility] Stop: 09/16/23 17:44 Last Admin: 08/18/23 08:16 Dose: 1,250 mg Lisinopril (Lisinopril 20 Mg Tab) 20 mg PO DAILY [facility] Stop: 09/16/23 15:19 Last Admin: 08/18/23 08:16 Dose: 20 mg Miscellaneous (Loteprednol Etabonate [Lotemax] 0.5 % - Order Awaiting Action) 1 each N/A QS [facility] Stop: 09/16/23 15:59 Last Admin: 08/19/23 00:13 Dose: Not Given Miscellaneous Information (Vancomycin Consult Active) 1 each N/A UD PRN PRN Reason: Consult Stop: 09/17/23 12:09 Multivitamins (Multivitamin Tab) [facility] Stop: 09/17/23 08:59 Last Admin: 08/18/23 08:16 Dose: 1 tab Ondansetron HCl (Ondansetron Inj 2 Mg/Ml 2 Ml Vial) 4 mg IV Q4H PRN PRN Reason: Nausea And Vomiting Stop: 09/16/23 15:19 Last Admin: 08/17/23 15:39 Dose: 4 mg Pantoprazole Sodium (Pantoprazole 40 Mg Tab) 40 mg [facility] Stop: 09/16/23 17:44 Last Admin: 08/18/23 08:17 Dose: 40 mg Prednisone (Prednisone 20 Mg Tab) 60 mg PO [facility] Stop: 09/16/23 17:14 Last Admin: 08/18/23 08:17 Dose: 60 mg
[2023-08-19] MEDS: FERROUS SULFATE 325 MG TAB PO SCH (08:15)
[2023-08-20 07:51] LABS: Hematocrit (blood only) 28.4 % (37.0-47.0); Hemoglobin 9.5 g/dl (12.0-16.0); Mean Corpuscular Hemoglobin 28.6 pg (25.0-34.0); Mean Corpuscular Hgb Conc 33.5 g/dL (32.0-36.0); Mean Corpuscular Volume 85.5 fL (80.0-100.0); Mean Platelet Volume 8.9 fL (9.4-12.4); Platelet Count 232 K/uL (130-400); RDW Coefficient of Variation 12.4 % (11.5-14.5); RDW Standard Deviation 38.5 fL (36.4-46.3); Red Blood Count 3.32 M/uL (4.20-5.40); White Blood Count 9.48 K/ul (4.8-10.8)
[2023-08-20 08:08] LABS: BUN Creatinine Ratio 19.3 (10-20); Creatinine Clr Calc Pharmacy 94.6 ml/min; Est GFR (African American) 114.3 ml/min; Est GFR (Non-African American) 98.7 ml/min; Magnesium 2.2 mg/dl (1.7-2.4); Phosphorus 2.2 mg/dl (2.5-4.9); Potassium 3.5 mmol/L (3.5-5.1)
[2023-08-20] MEDS: POTASSIUM CHLORIDE CRTAB 20 MEQ TABCR PO STA (08:35)
--- NOTE | 2023-08-20 08:46 | Hospitalist Progress Note ---
Date of Service August 20, 2023 Assessment & Plan (1) Sphenoid sinusitis: (2) Intractable headache: (3) Systemic lupus: (4) HTN (hypertension): Plan: Intractable Headache Sinusitis - MRI, CT head completed and are normal (but CT shows sinusitis) - LP completed, opening pressure of 24, CSF studies normal and biofire negative - RVP negative - reports congestion for several days - started Augmentin for sinusitis - Neurology consulted - recommended starting steroid, cont. abx, also for CHURCH use compazine, benadryl, mag, toradol - Pt feels improved, CHURCH improved Bacteremia blood cultx posit. for strep repeat blood cultx pending started augmentin initially for sinusitis - currently on iv vanco for gram posit. bacteremia - pt developed leukocytosis - but leukocytosis noted AFTER started steroid, not on admission (steroid started for CHURCH per neuro recs) - will further discuss blood cultx results with ID Anemia - Hgb on admission 12 - now down to 9.5 - no obvious signs of bleeding - will obtain FOBT, peripheral smear, anemia labs including LDH and haptoglobin Hyperglycemia -on admission Elevated glucose to 115 without eating, checked A1C 5.2% Lupus - Chronic, stable, taking ibuprofen 600 mg TID HTN Tachycardia- resolved - EKG reviewed, no acute findings. Likely due to anxiety and pain, will monitor - Continue lisinopril 20 mg and give now since didn't get morning meds BP and HR now normal Hx of bladder carcinoma - Chronic, stable, follows with urology - Pt was seen by PCP on 08/14, a UA was ordered but she had no urinary symptoms at that time or now. Not yet completed. Here UA appears clean DVT ppx: teds, scds CODE: FULL Dispo: From home, likely to remain in the hospital x 1-2 days Admission and Anticipated Discharge Date Admission Date: August 17, 2023 Subjective Pt seen in follow up of severe CHURCH CHURCH is much improved but still gets significant CHURCH at night No fever, chills, chest pain, shortness of breath, abd. pain Blood cultx positive for strep Now also anemia, Hgb trended down to 9.5 since admission at the bedside yesterday and updated Review of Systems Review of Systems: All systems reviewed & are unremarkable except as noted in Subjective Physical Exam Physical Exam: General: WD/WN F in NAD Head: Normocephalic, atraumatic ENT: PERRL, EOMI Chest: Clear to auscultation, on room air, no adventitious breath sounds Cardiac: RRR Abdominal:soft, nondistended, nontender to palpation, + bowel sounds Extremities: Normal inspection, no peripheral edema or erythema Psych: Normal mood and affect Neuro: AAO x 3, strength intact bilaterally and rated 5/5, no motor deficits, speech is clear, no peripheral sensory deficits Results & Data Results & Data Vital Signs (Past 12 Hours) Vital Signs Temp Pulse Pulse Resp BP Pulse Ox O2 Del Method 08/20/23 07:45 36.7 C 74 16 117/70 97 Room Air 08/20/23 07:36 78 08/20/23 03:53 36.6 C 89 18 165/77 H 99 Room Air 08/20/23 01:30 85 08/19/23 23:13 36.9 C 80 18 138/79 99 Room Air Laboratory Results 08/20/23 08/19/23 Range/Units 07:33 Unknown WBC 9.48 (4.8-10.8) K/ul RBC 3.32 L (4.20-5.40) M/uL Hgb 9.5 L (12.0-16.0) g/dl Hct 28.4 L (37.0-47.0) % MCV 85.5 (80.0-100.0) fL MCH 28.6 (25.0-34.0) pg MCHC 33.5 (32.0-36.0) g/dL RDW Std Deviation 38.5 (36.4-46.3) fL RDW Coeff of Clarisa 12.4 (11.5-14.5) % Plt Count 232 (130-400) K/uL MPV 8.9 L (9.4-12.4) fL Sodium 139 (136-145) mmol/L Potassium 3.5 (3.5-5.1) mmol/L Chloride 106 (98-107) mmol/L Carbon Dioxide 28 (21-32) mmol/L Anion Gap 5 (3-11) BUN 11 (6-23) mg/dl Creatinine 0.57 L (0.6-1.2) mg/dl Est Cr Clr Drug Dosing 94.6 ml/min Est GFR ( Amer) 114.3 ml/min Est GFR (Non-Af Amer) 98.7 ml/min BUN/Creatinine Ratio 19.3 (10-20) Glucose 95 (70-99(Fasting)) mg/dl Calcium 8.0 L (8.6-10.3) mg/dl Phosphorus 2.2 L (2.5-4.9) mg/dl Magnesium 2.2 (1.7-2.4) mg/dl Nasal Screen MRSA (PCR) Negative (Negative) Medications Administered Current Inpatient Medications Acetaminophen (Acetaminophen 325 Mg Tab) 650 mg PO Q4H PRN PRN Reason: Fever Stop: 09/16/23 15:19 Last Admin: 08/20/23 08:36 Dose: 650 mg Amoxicillin/Clavulanate Potassium (Amoxicillin/Clavulanate 875 Mg Tab) 1 tab PO BIDM [facility]; Protocol Stop: 08/27/23 16:59 Last Admin: 08/20/23 08:37 Dose: 1 tab Artificial Tears (Artificial Tears) 1 drops OP QID PRN PRN Reason: Dryness Stop: 09/16/23 15:27 Diphenhydramine HCl (Diphenhydramine 50 Mg/Ml Vial) 25 mg IV Q6 [facility] Stop: 09/16/23 17:29 Last Admin: 08/20/23 05:56 Dose: 25 mg Ferrous Sulfate (Ferrous Sulfate 325 Mg Tab) 325 mg PO MoWeFr@0900 [facility] Stop: 09/18/23 08:59 Last Admin: 08/19/23 08:15 Dose: 325 mg Hydromorphone HCl (Hydromorphone Inj 0.5 Mg/0.5 Ml Syr) 0.25 mg IV Q6H PRN PRN Reason: Severe Pain (Scale 7, 8, 9,10) Stop: 08/31/23 13:52 Last Admin: 08/20/23 05:55 Dose: 0.25 mg Acetaminophen (Ofirmev) 1,000 mg in 100 mls @ 400 mls/hr IV Q8H PRN PRN Reason: Headache or MILD/MODERATE Pain Stop: 08/20/23 13:52 Last Infusion: 08/18/23 06:43 Dose: Infused Prochlorperazine 10 mg/ (Syringe) 10 mls @ 5 mls/min IV Q6H PRN PRN Reason: Headache, nausea Stop: 09/16/23 17:12 Last Admin: 08/18/23 06:30 Dose: 5 mls/min Vancomycin HCl 1,250 mg/ (Sodium Chloride) 275 mls @ 200 mls/hr IV Q12H [facility] Stop: 09/02/23 00:00 Last Infusion: 08/20/23 02:14 Dose: Infused Lactobacillus Acidophilus (Advanced Probiotic 625 Mg Capsule) 1,250 mg PO DAILY [facility] Stop: 09/16/23 17:44 Last Admin: 08/20/23 08:37 Dose: 1,250 mg Lisinopril (Lisinopril 20 Mg Tab) 20 mg PO DAILY [facility] Stop: 09/16/23 15:19 Last Admin: 08/20/23 08:36 Dose: 20 mg Miscellaneous (Loteprednol Etabonate [Lotemax] 0.5 % - Order Awaiting Action) 1 each N/A QS [facility] Stop: 09/16/23 15:59 Last Admin: 08/20/23 08:11 Dose: Not Given Miscellaneous Information (Vancomycin Consult Active) 1 each N/A UD PRN PRN Reason: Consult Stop: 09/17/23 12:09 Multivitamins (Multivitamin Tab) [facility] [place] [facility] 09/17/23 08:59 Last Admin: 08/20/23 08:37 Dose: 1 tab Ondansetron HCl (Ondansetron Inj 2 Mg/Ml 2 Ml Vial) 4 mg IV Q4H PRN PRN Reason: Nausea And Vomiting Stop: 09/16/23 15:19 Last Admin: 08/19/23 08:15 Dose: 4 mg Pantoprazole Sodium (Pantoprazole 40 Mg Tab) 40 [facility] [place] Stop: 09/16/23 17:44 Last Admin: 08/20/23 08:37 Dose: 40 mg Prednisone (Prednisone 20 Mg Tab) 60 [facility] [place] Stop: 09/16/23 17:14 Last Admin: 08/20/23 08:36 Dose: 60 mg
--- NOTE | 2023-08-20 10:55 | Pharmacy Report ---
Pharmacy PK ABX Note - Date of Service August 20, 2023 - Assessment and Plan Assessment 08/19: Reviewed vancomycin level, predicting therapeutic AUC/DENNIS, continue current regimen. Blood cultures 4/4 GPCs in chains, BCID2 streptococcus no resistance. Augmentin for sinusitis causing headaches. ID consulted for further recommendations. 08/17: 63 year old F receiving Vancomycin for treatment of bacteremia. * Day #1 of antimicrobial therapy. * Afebrile. White count of 13k. SCr 0.55 mg/dL. * Blood cultures growing Strep species. CSF and repeat BCx pending. * Also on Augmentin for pulm coverage. Plan Vancomycin * Loading dose: 1500 mg IV x 1 * Maintenance dose: 1250 mg IV every 12 hours * Regimen is predicted to achieve target AUC/DENNIS of 400-600 mg/L.hr * Trough level to be ordered if continued or based on patient's clinical status. Pharmacy will continue to follow and will adjust dose/frequency as necessary. Thank you. Pharmacy has transitioned to AUC monitoring for vancomycin. AUC/DENNIS is the preferred PK/PD target and is associated with decreased risk of nephrotoxicity compared to traditional trough targets.
[2023-08-20 10:59] LABS: Ferritin 171.1 ng/ml (8-388)
[2023-08-20 11:06] LABS: Folate (Folic Acid),Ser orPlas > 22.30 ng/ml (>5.38); Vitamin B12 641 pg/ml (180-914)
[2023-08-21] MEDS: valACYclovir HCL 500 MG TABLET PO ONE (01:46)
[2023-08-21 08:00] LABS: Basophils # (auto) 0.06 K/uL (0.00-0.20); Basophils % (auto) 0.6 %; Eosinophils # (auto) 0.06 K/uL (0.00-0.50); Eosinophils % (auto) 0.6 %; Hemoglobin 11.6 g/dl (12.0-16.0); Immature Granulocytes # (auto) 0.07 K/uL (0.01-0.20); Immature Granulocytes % (auto) 0.7 %; Lymphocytes # (auto) 2.24 K/uL (1.20-3.40); Mean Corpuscular Hemoglobin 29.1 pg (25.0-34.0); Mean Corpuscular Hgb Conc 34.1 g/dL (32.0-36.0); Mean Corpuscular Volume 85.4 fL (80.0-100.0); Mean Platelet Volume 8.7 fL (9.4-12.4); Monocytes # (auto) 0.99 K/uL (0.11-0.59); Monocytes % (auto) 10.1 %; Neutrophils # (auto) 6.34 K/uL (1.40-6.50); Platelet Count 305 K/uL (130-400); RDW Coefficient of Variation 12.3 % (11.5-14.5); RDW Standard Deviation 38.3 fL (36.4-46.3); Red Blood Count 3.98 M/uL (4.20-5.40); White Blood Count 9.76 K/ul (4.8-10.8)
[2023-08-21 08:13] LABS: BUN Creatinine Ratio 15.6 (10-20); Calcium 8.7 mg/dl (8.6-10.3); Creatinine Clr Calc Pharmacy 84.2 ml/min; Est GFR (African American) 110.1 ml/min; Magnesium 2.1 mg/dl (1.7-2.4); Phosphorus 2.5 mg/dl (2.5-4.9); Potassium 3.3 mmol/L (3.5-5.1)
[2023-08-21] MEDS ORDERED: valACYclovir HCL 500 MG TABLET PO SCH (09:00)
[2023-08-21] MEDS: POTASSIUM CHLORIDE CRTAB 20 MEQ TABCR PO STA (09:38)
[2023-08-21] MEDS: cefTRIAXone SODIUM 2,000 MG/50 ML BAG IV SCH (11:09)
[2023-08-21] MEDS: POLYETHYLENE (MIRALAX) 17 GM PACK PO ONE (11:20)
[2023-08-21] MEDS: HYDROCODONE/ACETAMOPHEN 5/325MG TAB PO PRN (11:20)
--- NOTE | 2023-08-21 15:35 | Hospitalist Progress Note ---
Date of Service August 21, 2023 Assessment & Plan (1) Sphenoid sinusitis: (2) Intractable headache: (3) Systemic lupus: (4) HTN (hypertension): Plan: Intractable Headache Sinusitis - MRI, CT head completed and are normal (but CT shows sinusitis) - LP completed, opening pressure of 24, CSF studies normal and biofire negative - RVP negative - reports congestion for several days - started Augmentin for sinusitis - Neurology consulted - recommended starting steroid, cont. abx, also for CHURCH use compazine, benadryl, mag, toradol - Pt feels improved, CHURCH improved 08/20 Clinically improving with regards to the sinusitis ID consulted will be transitioned to IV Unasyn Bacteremia blood cultx posit. for strep repeat blood cultx pending started augmentin initially for sinusitis - currently on iv vanco for gram posit. bacteremia - pt developed leukocytosis - but leukocytosis noted AFTER started steroid, not on admission (steroid started for CHURCH per neuro recs) - will further discuss blood cultx results with ID 08/20 ID consulted Recommend to order TTE Transition to IV Unasyn for now Herpes zoster Right lower face Valtrex 1500 mg p.o. daily ordered Contract precautions Anemia - Hgb on admission 12 - now down to 9.5 - no obvious signs of bleeding - will obtain FOBT, peripheral smear, anemia labs including LDH and haptoglobin Hemoglobin 11.6 LDH normal, haptoglobin pending Iron level 38, FOBT pending Will need iron supplement Hyperglycemia -on admission Elevated glucose to 115 without eating, checked A1C 5.2% Lupus - Chronic, stable, taking ibuprofen 600 mg TID HTN Tachycardia- resolved - EKG reviewed, no acute findings. Likely due to anxiety and pain, will monitor - Continue lisinopril 20 mg and give now since didn't get morning meds BP and HR now normal Hx of bladder carcinoma - Chronic, stable, follows with urology - Pt was seen by PCP on 08/14, a UA was ordered but she had no urinary symptoms at that time or now. Not yet completed. Here UA appears clean DVT ppx: teds, scds CODE: FULL Dispo: Admission and Anticipated Discharge Date Admission Date: August 17, 2023 Subjective Follow-up for sinusitis, bacteremia, etc. Noted to have herpes zoster rash development overnight Valtrex p.o. started Seen resting in bed, sitting up, comfortable, in good spirits States she feels better overall, headache has resolved, still has some sinus congestion but improving Denies pain over the rashes on the right lips and surrounding areas No fevers or chills No nausea, vomiting, abdominal pain No other new symptoms Review of Systems Review of Systems: all noted and negative except for above Physical Exam Physical Exam: General- oriented x 3, not in distress, speaks in sentences with no effort or accessory muscle use Face-positive vesicular rash on the right upper and lower lip, positive erythema surrounding that, and also superior to the upper lip Eyes- anicteric Neck- no JVD Lungs- clear breath sounds bilaterally, no rales/wheezes Heart- normal rate, regular rhythm; no murmurs Abdomen- normal bowel sounds, nondistended, soft, nontender Extremities- no pretibial edema, no calf tenderness Neuro- alert, oriented x 3; no gross focal neurologic deficits Skin- warm & dry Results & Data Results & Data Vital Signs (Past 12 Hours) Vital Signs Temp Pulse Pulse Resp BP Pulse Ox O2 Del Method 08/21/23 10:49 36.8 C 91 H 16 137/75 95 Room Air 08/21/23 08:00 89 08/21/23 08:00 Room Air 08/21/23 07:32 36.5 C 92 H 19 179/89 H 98 Room Air 08/21/23 07:00 74 all noted and reviewed including below
--- NOTE | 2023-08-21 16:53 | Infectious Disease Consult ---
Date of Service August 21, 2023 Telehealth Information I performed this visit using a real-time telehealth connection between my location and the patients location ([facility]). After connecting through interactive tele-video, patient was identified by name and date of and/or wristband check.Patient (or authorized healthcare abrasives sales representative) was informed that this was a telemedicine visit and it was being conducted confidentially over secure lines. My office door was closed and no one else was present in the room with me.Patient (or authorized healthcare abrasives sales representative) provided consent to proceed with the visit, expressed an understanding of privacy and security of the telemedicine visit, and gave permission to have a hospital abrasives sales representative in the room in order to assist with the visit and to conduct portions of the visit, as needed. I informed the patient (or authorized healthcare abrasives sales representative) that I reviewed their record and presented the opportunity for them to ask any questions regarding the visit today. The patient agreed to participate. Assessment & Plan (1) Streptococcal bacteremia: (2) Intractable headache: (3) Sphenoid sinusitis: (4) History of systemic lupus erythematosus: Plan - Please discontinue IV piperacillin tazobactam and start on IV Unasyn which should be enough to cover the bacteremia as well as sinusitis. Also, please discontinue oral Augmentin. - Please obtain a transthoracic echo to investigate for any endocarditis. - We will follow up on the echo and decide on the final antibiotic plan. - Thank you for consulting Infectious Disease. We will continue to follow. History of Present Illness History of Present Illness Mrs. Burgos is a 63-year-old woman with medical history of systemic lupus and HTN who was admitted to [facility] on 08/16 because of severe headache. On presentation, she was afebrile but hypertensive at 168/84 and tachycardic at around 95. Imaging of the brain including head CT scan and MRI showed no acute abnormalities; however, it showed right sphenoid sinus disease suggesting acute sinusitis. LP was performed to investigate for meningitis which showed 0 nucleated cells and negative meningitis encephalitis panel. Shortly after admission, 4/4 bottles of blood culture came back positive for strep intermedius. Id team was consulted for further recommendations and to help guide antibiotic treatment. Allergies Allergy/AdvReac Type Severity Reaction Status Date / Time No Known Drug Allergies Allergy Mild NONE Verified 03/12/19 07:53 adhesive AdvReac Mild REDNESS,BUM Verified 03/12/19 07:53 PS Home Medications Medication Instructions Recorded Confirmed Type carboxymethylcellulose 0.5 1 drp ophthalmic (eye) DAILY PRN 08/27/18 08/17/23 History %-glycerin 0.9 % eye drops lupus s/s (Refresh Optive) diphenhydramine HCl 25 mg capsule 25 mg PO Q6 PRN Allergy Symptoms 08/27/18 08/17/23 History (Benadryl) ferrous sulfate 142 mg (45 mg 142 mg PO 3XWK 08/27/18 08/17/23 History iron) tablet,extended release (Slow Fe) ibuprofen 600 mg tablet 600 mg PO DAILY 08/27/18 08/17/23 History lisinopril 5 mg tablet 20 mg PO DAILY 08/27/18 08/17/23 History loteprednol etabonate 0.5 % eye 3 drp ophthalmic (eye) DAILY PRN 08/27/18 08/17/23 History gel drops (Lotemax) lupus s/s [id number]-[id number] 1 tab PO DAILY 08/27/18 08/17/23 History tablet (Multivitamin 50 Plus tablet) terbinafine HCl 1 % topical cream 1 % topical BID PRN rash 08/27/18 08/17/23 History (Lamisil AT) triamcinolone acetonide 0.1 % 1 applic topical BID PRN Rash 08/27/18 08/17/23 History topical cream valacyclovir 500 mg tablet 500 mg PO DAILY PRN sores 08/27/18 08/17/23 History (Valtrex) Patient History Medical History History of basal cell cancer BASE OF NOSE Bladder cancer Systemic lupus Surgical History History of D&C H/O breast surgery BENIGN TUMORS FROM BOTH BREASTS NO LYMPH NODES H/O oral surgery [place] teeth removed History of section History of tonsillectomy and adenoidectomy History of appendectomy H/O: hysterectomy H/O cystoscopy BLADDER SURGERY FOR CANCER H/O melanoma excision Social History Smoking Status: Never smoker Second Hand Exposure: No; Do You Dip or Chew Tobacco: No; Hx Alcohol Use: No Hx Substance Use: No Preferred Language: Hebrew Communication Ability: Effective [employer] Service Management Teacher Required: No Beliefs That Will Affect Care: None Current Living Situation: Spouse Current Living Situation Comment: Lives at home with who is able to help if needed Other Information That Helps Us Care for You: No Feels Safe at Home: Yes Safety Concerns: Feels Safe At This Time Assistive Devices: None Review of Systems Constitutional:fatigue,butno fever or chills Cardiovascular:no chest pain, or palpitations Respiratory:no shortness of breath, no cough Gastrointestinal:no abdominal pain or diarrhea :No dysuria or hesitancy, no urinary discharge Neurologic:headache but much better than when she first came Physical Exam Couldn't be performed as he visit was conducted via telemed Results & Data Vital Signs (Past 12 Hours) Vital Signs Temp Pulse Pulse Resp BP Pulse Ox O2 Del Method 08/21/23 15:52 36.7 C 08/21/23 15:49 90 16 121/76 94 Room Air 08/21/23 10:49 36.8 C 91 H 16 137/75 95 Room Air 08/21/23 08:00 89 08/21/23 08:00 Room Air 08/21/23 07:32 36.5 C 92 H 19 179/89 H 98 Room Air 08/21/23 07:00 74 Laboratory Results Microbiology: 08/16: 4/4 bottles of blood culture growing Streptococcus intermedius 08/16: CSF culture negative to date 08/16: Meningitis encephalitis panel negative 08/17: 2 sets of blood culture negative to date Diagnostic Findings MRI brain on 08/16: 1. There is no hemorrhage, enhancing mass, or evidence of acute ischemia. 2. There is symmetric increased T2 signal within the basal ganglia bilaterally, predominantly involving the globus pallidus. This is indeterminant (if any) clinical significance and clinical correlation will be essential.
[2023-08-21] MEDS: AMPICILLIN/SULBACTAM SOD 3,000 MG in SODIUM CHLOR 0.9% MINI-B 100 ML IV SCH (17:57)
[2023-08-21] MEDS ORDERED: AMPICILLIN SOD/SULBACTAM SOD 3 GM VIAL IV SCH (18:00)
[2023-08-21] MEDS: LACTULOSE SYRUP 20 GM/30 ML UDC PO ONE (20:02)
[2023-08-21] MEDS: valACYclovir HCL 500 MG TABLET PO SCH (20:21)
[2023-08-22] MEDS: POLYETHYLENE (MIRALAX) 17 GM PACK PO PRN (06:13)
[2023-08-22 07:47] LABS: Creatinine Clr Calc Pharmacy 73.8 ml/min; Est GFR (African American) 101.6 ml/min; Est GFR (Non-African American) 87.7 ml/min
[2023-08-22 10:25] LABS: BUN Creatinine Ratio 20.5 (10-20); Calcium 9.7 mg/dl (8.6-10.3); Potassium 3.7 mmol/L (3.5-5.1)
[2023-08-22] MEDS: DOCUSATE SODIUM 100 MG CAP PO PRN (18:24)
--- NOTE | 2023-08-22 19:13 | Hospitalist Progress Note ---
Date of Service August 22, 2023 Assessment & Plan (1) Sphenoid sinusitis: (2) Intractable headache: (3) Systemic lupus: (4) HTN (hypertension): Plan: Intractable Headache Sinusitis - MRI, CT head completed and are normal (but CT shows sinusitis) - LP completed, opening pressure of 24, CSF studies normal and biofire negative - RVP negative - reports congestion for several days - started Augmentin for sinusitis - Neurology consulted - recommended starting steroid, cont. abx, also for CHURCH use compazine, benadryl, mag, toradol - Pt feels improved, CHURCH improved 08/20 Clinically improving with regards to the sinusitis ID consulted will be transitioned to IV Unasyn 08/21 Continues to improve clinically Continue IV Unasyn Bacteremia blood cultx posit. for strep repeat blood cultx pending started augmentin initially for sinusitis - currently on iv vanco for gram posit. bacteremia - pt developed leukocytosis - but leukocytosis noted AFTER started steroid, not on admission (steroid started for CHURCH per neuro recs) - will further discuss blood cultx results with ID 08/20 ID consulted Recommend to order TTE Transition to IV Unasyn for now 08/21 TTE: No vegetation noted Discussed with ID Plan to transition to p.o. Augmentin upon discharge, hopefully by tomorrow Herpes zoster Right lower face Valtrex 1500 mg p.o. daily ordered Contract precautions rash improving Anemia - Hgb on admission 12 - now down to 9.5 - no obvious signs of bleeding - will obtain FOBT, peripheral smear, anemia labs including LDH and haptoglobin Hemoglobin 11.6 LDH normal, haptoglobin 333 Iron level 38, FOBT negative Will need iron supplement Hyperglycemia -on admission Elevated glucose to 115 without eating, checked A1C 5.2% Lupus - Chronic, stable, taking ibuprofen 600 mg TID HTN Tachycardia- resolved - EKG reviewed, no acute findings. Likely due to anxiety and pain, will monitor - Continue lisinopril 20 mg and give now since didn't get morning meds BP and HR now normal Hx of bladder carcinoma - Chronic, stable, follows with urology - Pt was seen by PCP on 08/14, a UA was ordered but she had no urinary symptoms at that time or now. Not yet completed. Here UA appears clean DVT ppx: teds, scds Patient ambulating well CODE: FULL Dispo: Anticipate discharge to home tomorrow plan of care discussed with patient in detail and at length all questions answered she is understanding, agreeable, comfortable with the plan of care Admission and Anticipated Discharge Date Admission Date: August 17, 2023 Subjective Follow-up for known bacterial sinusitis, Streptococcus bacteremia, etc. Seen resting in bed, sitting up, in good spirits States she continues to feel better overall Headache improving as well as sinus congestion No fevers or chills, nausea or vomiting Positive BMs No other new symptoms Review of Systems Review of Systems: all noted and negative except for above Physical Exam Physical Exam: General- oriented x 3, not in distress, speaks in sentences with no effort or accessory muscle use Face-rash improving, no open vesicles, bleeding, discharge noted Eyes- anicteric Neck- no JVD Lungs- clear breath sounds bilaterally, no rales/wheezes Heart- normal rate, regular rhythm; no murmurs Abdomen- normal bowel sounds, nondistended, soft, nontender Extremities- no pretibial edema, no calf tenderness Neuro- alert, oriented x 3; no gross focal neurologic deficits Skin- warm & dry Results & Data Results & Data Vital Signs (Past 12 Hours) Vital Signs Temp Pulse Resp BP Pulse Ox O2 Del Method 08/22/23 15:56 36.8 C 92 H 16 148/79 H 94 Room Air 08/22/23 11:18 36.5 C 79 18 133/80 96 Room Air 08/22/23 07:29 36.7 C 82 18 167/90 H 99 Room Air all noted and reviewed including below
[2023-08-23] MEDS: predniSONE 20 MG TAB PO SCH (09:23)
--- NOTE | 2023-08-23 10:08 | Hospitalist Progress Note ---
Date of Service August 23, 2023 Assessment & Plan (1) Sphenoid sinusitis: (2) Intractable headache: (3) Systemic lupus: (4) HTN (hypertension): Plan: Acute Sinusitis with Bacteremia - MRI, CT head completed and are normal (but CT shows sinusitis) - LP completed, opening pressure of 24, CSF studies normal and biofire negative - RVP negative - reports congestion for several days - started Augmentin for sinusitis - Neurology consulted - recommended starting steroid, cont. abx, also for CHURCH use compazine, benadryl, mag, toradol - Pt feels improved, CHURCH improved Clinically improved overall with IV antibiotics, Prednisone taper ID consulted 08/22 transition to Augmentin 875mg TID x 14 days per ID Prednisone taper please refer to ENT, Allergy Clinic Bacteremia blood cultx posit. for strep intermedius repeat blood cultx negative 08/21 ID consulted TTE: No vegetation noted Transition to Augmentin 875mg TID x 14 days Herpes zoster Right lower face Valtrex 1500 mg p.o. daily ordered Contract precautions rash improving continue Valtrex x 4 more days to complete 7 day course Anemia - Hgb on admission 12 --> 11.3-> 11.6 - no obvious signs of bleeding Hemoglobin 11.6 LDH normal, haptoglobin 333 Iron level 38, FOBT negative continue Iron supplement Hyperglycemia -on admission Elevated glucose to 115 without eating, checked A1C 5.2% Lupus - Chronic, stable, taking ibuprofen 600 mg TID HTN Tachycardia- resolved - EKG reviewed, no acute findings. Likely due to anxiety and pain, will monitor - Continue lisinopril 20 mg and give now since didn't get morning meds BP and HR now normal Hx of bladder carcinoma - Chronic, stable, follows with urology - Pt was seen by PCP on 08/14, a UA was ordered but she had no urinary symptoms at that time or now. Not yet completed. Here UA appears clean DVT ppx: teds, scds Patient ambulating well CODE: FULL Dispo: d/c home PCP in 1 week refer to ENT, Allergy Clinic plan of care discussed with patient and her son Kenton in detail and at length all questions answered she is understanding, agreeable, comfortable with the plan of care Admission and Anticipated Discharge Date Admission Date: August 17, 2023 Subjective ff up for sinusitis, bacteremia,etc seen resting in bed, comfortable in good spirits states she feels good overall having some cold, vibrating sensation posterior neck no numbness/tingling of extremities headache resolved nasal congestion mostly resolved no fever/chills no other new symptoms states she is ready for discharge today Review of Systems Review of Systems: all noted and negative except for above Physical Exam Physical Exam: General- oriented x 3, not in distress, speaks in sentences with no effort or accessory muscle use Face- crusted lesions R upper and lower lip no bleeding erythematous rash surrounding R lips improving Eyes- anicteric Neck- no JVD Lungs- clear breath sounds bilaterally, no rales/wheezes Heart- normal rate, regular rhythm; no murmurs Abdomen- normal bowel sounds, nondistended, soft, no tenderness Extremities- no pretibial edema, no calf tenderness Neuro- alert, oriented x 3; no gross focal neurologic deficits Skin- warm & dry Results & Data Results & Data Vital Signs (Past 12 Hours) Vital Signs Temp Pulse Pulse Resp BP Pulse Ox O2 Del Method 08/23/23 08:23 36.5 C 84 16 158/81 H 98 Room Air 08/23/23 07:26 79 08/23/23 03:25 36.8 C 78 18 147/77 H 97 Room Air 08/22/23 23:04 36.8 C 88 18 125/73 95 Room Air 08/22/23 22:59 75 all noted and reviewed including below
[2023-08-23] MEDS: AMOXICILLIN/CLAVULANATE 875 MG TAB PO SCH (12:50)
--- NOTE | 2023-08-23 18:09 | Discharge Summary ---
Discharge Summary Date of Service August 23, 2023 delayed entry date of service noted above Principal Dx & Hospital Course #1 = Principal Diagnosis (1) Sphenoid sinusitis: (2) Intractable headache: (3) Systemic lupus: (4) HTN (hypertension): Acute Sinusitis with Bacteremia- Streptococcus intermedius - MRI, CT head completed and are normal (but CT shows sinusitis) - LP completed, opening pressure of 24, CSF studies normal and biofire negative - RVP negative - reports congestion for several days - started Augmentin for sinusitis - Neurology consulted - recommended starting steroid, cont. abx, also for CHURCH use compazine, benadryl, mag, toradol - Pt feels improved, CHURCH improved Clinically improved overall with IV antibiotics, Prednisone taper ID consulted 08/22 transition to Augmentin 875mg TID x 14 days per ID Prednisone taper please refer to ENT, Allergy Clinic Bacteremia blood cultx posit. for strep intermedius repeat blood cultx negative 08/21 ID consulted TTE: No vegetation noted Transition to Augmentin 875mg TID x 14 days Herpes zoster Right lower face Valtrex 1500 mg p.o. daily ordered Contract precautions rash improving continue Valtrex x 4 more days to complete 7 day course Anemia - Hgb on admission 12 --> 11.3-> 11.6 - no obvious signs of bleeding Hemoglobin 11.6 LDH normal, haptoglobin 333 Iron level 38, FOBT negative continue Iron supplement Brain MRI There is minimal microangiopathic change. Monitor lipid panel, blood pressure, A1c Further monitoring and management per outpatient Hyperglycemia -on admission Elevated glucose to 115 without eating, checked A1C 5.2% Lupus - Chronic, stable, taking ibuprofen 600 mg TID HTN Tachycardia- resolved - EKG reviewed, no acute findings. Likely due to anxiety and pain, will monitor - Continue lisinopril 20 mg and give now since didn't get morning meds BP and HR now normal Hx of bladder carcinoma - Chronic, stable, follows with urology - Pt was seen by PCP on 08/14, a UA was ordered but she had no urinary symptoms at that time or now. Not yet completed. Here UA appears clean Dispo: d/c home PCP in 1 week refer to ENT, Allergy Clinic plan of care discussed with patient and her son Kenton in detail and at length all questions answered she is understanding, agreeable, comfortable with the plan of care Notes For Next Care Provider Medication Changes From Visit Augmentin - antibiotic for sinusitis, bloodstream infection Prednisone taper 40mg daily x 1 day, 20mg daily x 2 days, then 10mg daily x 2 days, then stop Take a probiotic daily x 1 month. Renew[employer] brand recommended. Valtrex- antiviral medication for herpes zoster Admission HPI Per Admitting Provider This is a 63 yo F with PMHx of intactable headache, without previous history of migraine or headaches, chronic lupus taking ibuprofen 600 mg TID, HTN, who presents to the hospital with worsening headache since Saturday ( 3 days ago). At this point, she is unable to even move her head without it causing a sharp stabbing pain in the occipital region. Pt admits to having some behind the eye pressure on Saturday and thought she may have caught a cold. Pt tested for COVID with a home test twice which was negative. She had some congestion at that time. She had tried benadryl HS to see if she could sleep off heaache but did not find any relief. She denies any visual changes, nausea, vomiting. No other acute complaints. Discharge Exam General- oriented x 3, not in distress, speaks in sentences with no effort or accessory muscle use Face- crusted lesions R upper and lower lip no bleeding erythematous rash surrounding R lips improving Eyes- anicteric Neck- no JVD Lungs- clear breath sounds bilaterally, no rales/wheezes Heart- normal rate, regular rhythm; no murmurs Abdomen- normal bowel sounds, nondistended, soft, no tenderness Extremities- no pretibial edema, no calf tenderness Neuro- alert, oriented x 3; no gross focal neurologic deficits Skin- warm & dry Updated Medication List Medication Instructions Recorded Confirmed Type carboxymethylcellulose 0.5 1 drp ophthalmic (eye) DAILY PRN 08/27/18 08/17/23 History %-glycerin 0.9 % eye drops lupus s/s (Refresh Optive) diphenhydramine HCl 25 mg capsule 25 mg PO Q6 PRN Allergy Symptoms 08/27/18 08/17/23 History (Benadryl) ferrous sulfate 142 mg (45 mg 142 mg PO 3XWK 08/27/18 08/17/23 History iron) tablet,extended release (Slow Fe) ibuprofen 600 mg tablet 600 mg PO DAILY 08/27/18 08/17/23 History lisinopril 5 mg tablet 20 mg PO DAILY 08/27/18 08/17/23 History loteprednol etabonate 0.5 % eye 3 drp ophthalmic (eye) DAILY PRN 08/27/18 08/17/23 History gel drops (Lotemax) lupus s/s [id number] 1 tab PO DAILY 08/27/18 08/17/23 History tablet (Multivitamin 50 Plus tablet) terbinafine HCl 1 % topical cream 1 % topical BID PRN rash 08/27/18 08/17/23 History (Lamisil AT) triamcinolone acetonide 0.1 % 1 applic topical BID PRN Rash 08/27/18 08/17/23 History topical cream valacyclovir 500 mg tablet 500 mg PO DAILY PRN sores 08/27/18 08/17/23 History (Valtrex) amoxicillin 875 mg-potassium 1 tab PO TID 14 days #42 tabs 08/23/23 Rx clavulanate 125 mg tablet prednisone 10 mg tablet 10 mg PO DIRECTED #10 tabs 08/23/23 Rx valacyclovir 500 mg tablet 1,500 mg (3 x 500 mg) PO HS 4 days 08/23/23 Rx #12 tabs Hospital Stay Data Consultations 08/17/23 12:29 Consult Neurology Routine 08/17/23 12:41 ED Decision to Admit Stat 08/19/23 15:44 Consult Infectious Diseases Routine Diagnostic Imagining Performed Laboratory Results WBC 9.76 K/ul (4.8-10.8) 08/21/23 07:34 RBC 3.98 M/uL (4.20-5.40) L 08/21/23 07:34 Hgb 11.6 g/dl (12.0-16.0) L 08/21/23 07:34 Hct 34.0 % (37.0-47.0) L 08/21/23 07:34 MCV 85.4 fL (80.0-100.0) 08/21/23 07:34 MCH 29.1 pg (25.0-34.0) 08/21/23 07:34 MCHC 34.1 g/dL (32.0-36.0) 08/21/23 07:34 RDW Std Deviation 38.3 fL (36.4-46.3) 08/21/23 07:34 RDW Coeff of Clarisa 12.3 % (11.5-14.5) 08/21/23 07:34 Plt Count 305 K/uL (130-400) 08/21/23 07:34 MPV 8.7 fL (9.4-12.4) L 08/21/23 07:34 Immature Gran % (Auto) 0.7 % 08/21/23 07:34 Neut % (Auto) 65.0 % 08/21/23 07:34 Lymph % (Auto) 23.0 % 08/21/23 07:34 [place] % (Auto) 10.1 % 08/21/23 07:34 Eos % (Auto) 0.6 % 08/21/23 07:34 Baso % (Auto) 0.6 % 08/21/23 07:34 Neut # (Auto) 6.34 K/uL (1.40-6.50) 08/21/23 07:34 Lymph # (Auto) 2.24 K/uL (1.20-3.40) 08/21/23 07:34 [place] # (Auto) 0.99 K/uL (0.11-0.59) H 08/21/23 07:34 Eos # (Auto) 0.06 K/uL (0.00-0.50) 08/21/23 07:34 Baso # (Auto) 0.06 K/uL (0.00-0.20) 08/21/23 07:34 Immature Gran # (Auto) 0.07 K/uL (0.01-0.20) 08/21/23 07:34 Peripher Smr Path Cons 08/20/23 07:33 Haptoglobin 333 mg/dL (43-212) H 08/20/23 09:50 Sodium 142 mmol/L (136-145) 08/22/23 07:11 Potassium 3.7 mmol/L (3.5-5.1) 08/22/23 07:11 Chloride 103 mmol/L (98-107) 08/22/23 07:11 Carbon Dioxide 28 mmol/L (21-32) 08/22/23 07:11 Anion Gap 11 (3-11) 08/22/23 07:11 BUN 15 mg/dl (6-23) 08/22/23 07:11 Creatinine 0.73 mg/dl (0.6-1.2) 08/22/23 07:11 Est Cr Clr Drug Dosing 73.8 ml/min 08/22/23 07:11 Est GFR ( Amer) 101.6 ml/min 08/22/23 07:11 Est GFR (Non-Af Amer) 87.7 ml/min 08/22/23 07:11 BUN/Creatinine Ratio 20.5 (10-20) H 08/22/23 07:11 Glucose 93 mg/dl (70-99(Fasting)) 08/22/23 07:11 Estimat Average Glucose 103 mg/dl 08/17/23 04:02 Hemoglobin A1c 5.2 % (4.5-5.6) 08/17/23 04:02 Calcium 9.7 mg/dl (8.6-10.3) 08/22/23 07:11 Phosphorus 2.5 mg/dl (2.5-4.9) 08/21/23 07:34 Magnesium 2.1 mg/dl (1.7-2.4) 08/21/23 07:34 Iron 38 mcg/dl (35-150) 08/20/23 09:50 Transferrin 189 mg/dl (200-360) L 08/20/23 09:50 Ferritin 171.1 ng/ml (8-388) 08/20/23 09:50 Total Bilirubin 0.6 mg/dl (0.2-1.0) 08/17/23 04:02 AST 16 U/L (13-39) 08/17/23 04:02 ALT 11 U/L (7-52) 08/17/23 04:02 Alkaline Phosphatase 48 U/L (34-104) 08/17/23 04:02 Lactate Dehydrogenase 177 U/L (86-244) 08/20/23 09:50 Total Protein 7.1 gm/dl (6.0-8.3) 08/17/23 04:02 Albumin 4.5 gm/dl (3.4-5.0) 08/17/23 04:02 Globulin 2.6 gm/dl (2.5-4.0) 08/17/23 04:02 Albumin/Globulin Ratio 1.7 (0.9-2) 08/17/23 04:02 Vitamin B12 641 pg/ml (180-914) 08/20/23 09:50 Folate > 22.30 ng/ml (>5.38) 08/20/23 09:50 Urine Color Yellow 08/17/23 05:25 Urine Appearance Clear (Clear) 08/17/23 05:25 Urine pH 5.5 (4.5-7.5) 08/17/23 05:[address] 1.021 (1.000-1.030) 08/17/23 05:25 Urine Protein Trace (Negative) H 08/17/23 05:25 Urine Glucose (UA) Negative (Negative) 08/17/23 05:25 Urine Ketones Negative (Negative) 08/17/23 05:25 Urine Blood 2+ (Negative) H 08/17/23 05:25 Urine Nitrite Negative (Negative) 08/17/23 05:25 Urine Bilirubin Negative (Negative) 08/17/23 05:25 Urine Urobilinogen Negative (Negative) 08/17/23 05:25 Ur Leukocyte Esterase 1+ (Negative) H 08/17/23 05:25 Urine WBC (Auto) 6-10 /hpf (0-5) H 08/17/23 05:25 Urine RBC (Auto) >20 /hpf (0-2) H 08/17/23 05:25 U Hyaline Cast (Auto) 3-5 /lpf (0-2) H 08/17/23 05:25 U Epithel Cells (Auto) 0-2 /hpf (0-2) 08/17/23 05:25 Urine Bacteria (Auto) None Seen (None Seen) 08/17/23 05:25 Fluid Comment 08/17/23 Unknown CSF Appearance Clear 08/17/23 Unknown CSF Color Colorless 08/17/23 Unknown Xanthrochromic No xanthochromia 08/17/23 Unknown CSF WBC 0 (0-5) 08/17/23 Unknown CSF RBC 0 (0-) 08/17/23 Unknown CSF Cell Count Tube # 3 08/17/23 Unknown CSF Chemistry Tube # 1 08/17/23 Unknown CSF Glucose 77 mg/dl (40-70) H 08/17/23 Unknown CSF Total Protein 28.2 mg/dl (15-45) 08/17/23 Unknown CSF C.neoform/gat PCR Not Detected (NotDetected) 08/17/23 Unknown CSF CMV DNA (PCR) Not Detected (NotDetected) 08/17/23 Unknown CSF Enterovirus (PCR) Not Detected (NotDetected) 08/17/23 Unknown CSF E. coli K1 (PCR) Not Detected (NotDetected) 08/17/23 Unknown CSF H. influenzae (PCR) Not Detected (NotDetected) 08/17/23 Unknown CSF HSV I (PCR) Not Detected (NotDetected) 08/17/23 Unknown CSF HSV II (PCR) Not Detected (NotDetected) 08/17/23 Unknown CSF HHV 6 (PCR) Not Detected (NotDetected) 08/17/23 Unknown CSF L.monocytogenes PCR Not Detected (NotDetected) 08/17/23 Unknown CSF N. meningitidis PCR Not Detected (NotDetected) 08/17/23 Unknown CSF Parechovirus (PCR) Not Detected (NotDetected) 08/17/23 Unknown CSF S. agalactiae (PCR) Not Detected (NotDetected) 08/17/23 Unknown CSF S. pneumoniae (PCR) Not Detected (NotDetected) 08/17/23 Unknown CSF VZV DNA (PCR) Not Detected (NotDetected) 08/17/23 Unknown Nasal Screen MRSA (PCR) Negative (Negative) 08/19/23 Unknown Stool Occult Bld Scrn Negative (Negative) 08/22/23 09:30 Random Vancomycin 11.8 mcg/ml (10-20) 08/20/23 09:50 Adenovirus (PCR) Not Detected (NotDetected) 08/17/23 16:04 B. pertussis DNA (PCR) Not Detected (NotDetected) 08/17/23 16:04 B.parapertussis DNA PCR Not Detected (NotDetected) 08/17/23 16:04 C. pneumoniae DNA (PCR) Not Detected (NotDetected) 08/17/23 16:04 Coronavirus OC43 (PCR) Not Detected (NotDetected) 08/17/23 16:04 Coronavirus HKU1 (PCR) Not Detected (NotDetected) 08/17/23 16:04 Coronavirus 229E (PCR) Not Detected (NotDetected) 08/17/23 16:04 SARS-CoV-2 (PCR) Not Detected (NotDetected) 08/17/23 16:04 Coronavirus NL63 (PCR) Not Detected (NotDetected) 08/17/23 16:04 Human Metapneumovir PCR Not Detected (NotDetected) 08/17/23 16:04 Influenza Type A (PCR) Not Detected (NotDetected) 08/17/23 16:04 Influenza Type B (PCR) Not Detected (NotDetected) 08/17/23 16:04 M. pneumoniae (PCR) Not Detected (NotDetected) 08/17/23 16:04 Parainfluenza 1 (PCR) Not Detected (NotDetected) 08/17/23 16:04 Parainfluenza 2 (PCR) Not Detected (NotDetected) 08/17/23 16:04 Parainfluenza 3 (PCR) Not Detected (NotDetected) 08/17/23 16:04 Parainfluenza 4 (PCR) Not Detected (NotDetected) 08/17/23 16:04 RSV (PCR) Not Detected (NotDetected) 08/17/23 16:04 Entero/Rhino (PCR) Not Detected (NotDetected) 08/17/23 16:04 Streptococcus sp PCR DETECTED (NotDetected) A 08/17/23 12:44 Bld Cult ID Panel PCR See PCR Comment (NotDetected) 08/17/23 12:44 Impressions Lumbar Puncture 08/17/23 00:00 FLUOROSCOPIC GUIDED LUMBAR PUNCTURE CLINICAL HISTORY: Headache. PROCEDURE: The risks, benefits, and alternatives to the procedure is discussed with the patient who voiced understanding. Written informed consent was obtained. The patient was placed prone on the fluoroscopy table. The lower back was prepped and draped in the usual sterile fashion. 1% lidocaine was used for local anesthesia. A 22-gauge spinal needle was inserted into the L4-L5 interlaminar space, opening pressures were assessed, and approximately 10 cc of clear colorless cerebrospinal fluid was removed. 2 spot images are saved. The patient tolerated the procedure well. There were no immediate complications. The patient was then returned to the Emergency Department for further observation. Fluoroscopy time: 11 seconds Opening pressure: 24 cm water Ka,r: 4.76 mGy IMPRESSION: Fluoroscopic guided lumbar puncture with removal of approximately 10 cc of cerebrospinal fluid. There were no immediate complications. ACT 112: Negative or not required by law. Electronically signed by: Dewayne Marsh M.D. 08/17/2023 9:[address] 08/17/23 03:48 Exam(s): CT HEAD Without Contrast EXAM: CT Head Without Intravenous Contrast CLINICAL HISTORY: Reason for exam: Headache. TECHNIQUE: Axial computed tomography images of the head/brain without intravenous contrast. Automated exposure control was utilized for the study. A dose lowering technique was utilized adhering to the principles of ALARA. COMPARISON: No relevant prior studies available. FINDINGS: Brain: Unremarkable. No hemorrhage. No significant white matter disease. No edema. Ventricles: Unremarkable. No ventriculomegaly. Bones/joints: Unremarkable. No acute fracture. Soft tissues: Unremarkable. Sinuses: Opacified right sphenoid sinus with mild mucoperiosteal thickening. Rest of the partially visualized paranasal sinuses are clear. Mastoid air cells: Unremarkable as visualized. No mastoid effusion. IMPRESSION: 1. No evidence of acute intracranial abnormality 2. Opacified right sphenoid sinus with mild mucoperiosteal thickening. Chronic right sphenoid sinusitis. Electronically signed by: Ok Calvo M.D. 08/17/23 04:22 AM Brain MRI 08/17/23 07:09 MRI OF THE BRAIN COMBO CLINICAL HISTORY: Headache. COMPARISON STUDY: CT of the brain dated 08/17/2023. TECHNIQUE: MRI of the brain was performed utilizing various T1 and T2-weighted sequences in the axial, sagittal, and coronal planes. Contrast-enhanced sequences were acquired following the administration of 6.5 cc of Gadavist. FINDINGS: Brain parenchyma: There is nonspecific increased T2 signal within the basal ganglia bilaterally, predominantly involving the globus pallidus. This is best seen on axial T2-weighted image #13. There is minimal microangiopathic change. There is no hemorrhage or mass effect. There is no restricted diffusion typical for acute ischemia. No enhancing mass lesion is identified on the postcontrast images. [place]-white matter differentiation is preserved. No extra-axial fluid collection is seen. The cerebellar tonsils are normal in configuration. Ventricles, sulci, and cisterns: Normal in configuration. Pituitary and sella: Unremarkable. Intracranial vasculature: Normal flow voids are maintained at the skull base. Orbits: The bony orbits are grossly intact. Orbital contents are normal in appearance. Sinuses and mastoids: There is near complete opacification of the right sphenoid sinus. Moderate mucosal thickening is noted in the left sphenoid sinus, the posterior ethmoid sinuses. Metatarsals are clear. Calvarium: Unremarkable. Cervical cord: Partially visualized cervical spinal cord is normal in morphology and signal intensity. IMPRESSION: 1. There is no hemorrhage, enhancing mass, or evidence of acute ischemia. 2. There is symmetric increased T2 signal within the basal ganglia bilaterally, predominantly involving the globus pallidus. This is indeterminant (if any) clinical significance and clinical correlation will be essential. 3. Right sphenoid sinus disease as above. Correlate clinically for evidence of sinusitis ACT 112: Negative or not required by law. Electronically signed by: Dewayne Marsh M.D. 08/17/2023 11:02 AM Pending Results Patient Have Any Pending Studies at Discharge: No Discharge Instructions Given to Patient (Per Discharging Provider) PLEASE REFER TO YOUR NEW MEDICATION LIST AND FOLLOW INSTRUCTIONS CAREFULLY. YOUR NEW MEDICATIONS INCLUDE: Augmentin - antibiotic for sinusitis, bloodstream infection Prednisone taper 40mg daily x 1 day, 20mg daily x 2 days, then 10mg daily x 2 days, then stop Take a probiotic daily x 1 month. [employer] brand recommended. Valtrex- antiviral medication for herpes zoster Drink 6-8 glasses of water per day. PLEASE CALL YOUR PRIMARY CARE PHYSICIAN OR RETURN TO THE ER IF WITH WORSENING OF SYMPTOMS, INCLUDING fever/chills, headache, weakness, nausea/vomiting, diarrhea, etc FOLLOW UP WITH PRIMARY CARE PHYSICIAN OUTLINED ABOVE. Take care! Total Time Total Time Spent Total Time Spent (In Minutes): 50 minutes
== END 2023-08-23 13:53 | disposition home or self-care (01) | DRG 153 ==
LOC: ED 03:23 → 2N 12:29 → SUATTDRO 12:29 → 2N 13:25